=== PATIENT | female | born 1955 | race Caucasian/White ===

== ENCOUNTER 2016-05-08 16:07 | Emergency (ER) | payer OTHER, MEDICARE ==
[~2016-05-08] VITALS: Ht 167.6 cm; Wt 86.2 kg
[~2016-05-08 16:07] MED LIST: ABILIFY 15MG15 MG PO; LIORESAL 10MG T10 MG PO; NORCO 325 MG-51 TAB PO; PERCOCET 325 MG1 TA2 PO; PREDNISONE 10MG10 M1 PO; PROAIR HFA0.09 MG/Ac INH; REMERON30 M1 PO; ROBITUSSIN W/CO10 ML PO; VISTARIL25 MG PO; XANAX1 M1 PO; ZITHROMAX Z-PA250 M1 PO
--- NOTE | 2016-05-08 16:25 | ED GI/GU/ABDOMINAL COMPLAINT ---
History of Present Illness General Chief Complaint: Nausea, Vomiting, Diarrhea Stated Complaint: BIBA N/V/D SINCE 0600, BRB TO STOOL Vital Signs & Intake/Output Vital Signs & Intake/Output Vital Signs Date Time Temp Pulse Resp B/P Pulse O2 O2 Flow FiO2 Ox Delivery Rate 05/08 2116 99.6 75 18 114/62 99 Room Air 05/08 1933 100.2 82 16 116/64 96 Room Air 05/08 1851 101.2 05/08 1843 101.2 105 18 132/79 95 Room Air 05/08 1649 96 Room Air 05/08 1611 99.9 80 22 149/92 96 Room Air Allergies Coded Allergies: NSAIDS (Non-Steroidal Anti-Inflamma (Intermediate, GASTRIC ISSUES 07/18/15) Triage Note: BIBA FROM HOME FOR 12/06 MID EPIGASTRIC PAIN, INTERMITTENT AND BURNING SINCE 0600. REPORTS NAUSEA, VOMITING AND DIARRHEA WITH RED STREAKS. HX "GASTRIC EROSION" AND NOT ABLE TO TAKE NSAIDS. PT HAS EXTREMELY POOR VENOUS ACCESS AND EMS UNABLE TO ESTABLISH IV. 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 PT ARRIVES LOW GRADE 99.9 ORALLY. ? N Is pt currently ? No Onset: Abrupt Duration: hour(s): (10) Timing: multiple episodes today Quality/Severity: cramping, moderate Location: epigastric Radiation: no radiation Modifying Factors: Worsens With: eating. Associated Symptoms: nausea/vomiting HPI: This is a 60 year old female who presents to the ER for chief complaint of epigastric pain, nausea vomiting an diarrhea all which started at 6 am this morning. She reports that she has a history of gastric erosions and noted some red flecks in her emesis. (IMMANUEL LEE,ASHLEY) General Source: patient Exam Limitations: no limitations Reconcile Medications Alprazolam (Xanax) 1 MG TAB 1 TAB PO TID ANXIETY (Reported) Cyclobenzaprine HCl 5 MG TABLET 1 TAB PO TID PRN MUSCLE RELAXER (Reported) Doxepin HCl 25 MG CAPSULE 1 CAP PO QHS HEADACHE (Reported) Gabapentin 300 MG CAPSULE 1 CAP PO QHS NERVE PAIN/SLEEP (Reported) Metoclopramide HCl (Reglan) 10 MG TABLET 1 TAB PO 4 TIMES/DAY PRN nausea Multivitamin (Multi-Day Vitamins) 1 EACH TABLET 1 TAB PO DAILY SUPPLEMENT ( Reported) Oxycodone HCl/Acetaminophen (Percocet 5-325 MG Tablet) 5 MG-325 MG TABLET 1 TAB PO Q6P PRN pain Pantoprazole Sodium (Protonix) 40 MG TABLET. 1 TAB PO DAILY gerd Promethazine HCl 25 MG TABLET 1 TAB PO Q6P PRN NAUSEA/VOMITING Triage Nurses Notes Reviewed? yes (MANNY LEE,NY Her) Past History Travel History Traveled to [place] past 21 day No Medical History Any Pertinent Medical History? 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 No (ASHLEY BURLESON MD) Review of Systems Review of Systems Constitutional: Denies: chills, fever. EENTM: Reports: no symptoms. Respiratory: Denies: cough, short of breath. Cardiovascular: Denies: chest pain, palpitations. GI: Reports: abdominal pain, diarrhea, nausea, vomiting. Genitourinary: Reports: no symptoms. Musculoskeletal: Reports: no symptoms. Skin: Reports: no symptoms. Neurological/Psychological: Denies: anxiety. Hematologic/Endocrine: Reports: bleeding. Denies: bruising, polyuria, polydipsia. Immunologic/Allergic: Denies: splenectomy. All Other Systems: Reviewed and Negative (ASHLEY BURLESON MD) Physical Exam Physical Exam General Appearance: well developed/nourished, alert, awake Head: atraumatic, normal appearance Eyes: Bilateral: normal appearance, PERRL, EOMI. Ears, Nose, Throat, Mouth: hearing grossly normal, moist mucous membrane Neck: normal inspection, supple, full range of motion Respiratory: normal breath sounds, chest non-tender, no respiratory distress Cardiovascular: regular rate/rhythm Peripheral Pulses: 2+ radial (R), 2+ radial (L) Gastrointestinal: soft, abnormal bowel sounds, tenderness (EPIGASTRIC) Extremities: normal range of motion Neurologic/Psych: no motor/sensory deficits, awake, alert, oriented x 3 Skin: intact, normal color, warm/dry Core Measures ACS in differential dx? No Severe Sepsis Present: No Septic Shock Present: No (IMMANUEL LEE,ASHLEY) Progress Differential Diagnosis: bowel obstruction, gastritis, hepatitis, hernia, peptic ulcer, PUD/GERD, perforated viscous, SBO Initial ED EKG: NSR, NEW T WAVE INVERSIONS, ST FLATTENING ANTERIOR LEADS Hand-Off Endorsed To: [place] BRYANT MD Endorsed Time: 1899 Pending: CT, labs (REPEAT LACTIC/TROPONIN) (ASHLEY BURLESON MD) Plan of Care: Orders Procedure Date/time Status TROPONIN LEVEL 05/08 1940 Active LACTIC ACID 05/[address] ABD & PELVIS W IV CONTRAST 05/08 183 Active Add-on Test (ER Only) 05/08 171 Active TROPONIN LEVEL 05/08 171 Complete URINALYSIS 05/08 1638 Complete PARTIAL THROMBOPLASTIN TIME 05/08 1638 Complete PROTHROMBIN TIME 05/08 1638 Complete MAGNESIUM 05/08 1638 Complete LIPASE 05/08 1638 Complete LACTIC ACID 05/08 1638 Complete COMPREHENSIVE METABOLIC PANEL 05/08 1638 Complete CBC WITHOUT DIFFERENTIAL 05/08 1638 Active AMYLASE 05/08 1638 Complete EKG 05/08 1638 Active Current Medications Sig/Mike Start time Last Medication Dose Stop Time Status Admin Sodium Chloride 1,000 ML BOLUS ONE 05/08 183 AC (Normal Saline 0.9%) 05/08 1929 Laboratory Tests 05/08/16 1825: Urinalysis LIGHT H, Urine Color YEL, Urine Clarity HAZY H, Urine pH 8.5 H, Ur Specific [place] 1.010, Urine Protein 100 H, Urine Ketones 15 H, Urine Nitrite NEG, Urine Bilirubin NEG, Urine Urobilinogen 0.2, Ur Leukocyte Esterase NEG, Ur Microscopic SEDIMENT EXAMINED, Urine RBC 10-15 H, Urine WBC RARE, Ur Epithelial Cells FEW, Urine Mucus FEW, Urine Hemoglobin TRACE-INTACT, Urine Glucose NEG 05/08/16 1713: Anion Gap 14, Estimated GFR > 60, BUN/Creatinine Ratio 16.3, Glucose 131 H, Lactic Acid 3.2 H, Calcium 9.1, Magnesium 1.4 L, Total Bilirubin 0.6, AST 23, ALT 20, Alkaline Phosphatase 73, Troponin I < 0.01, Total Protein 6.5, Albumin 3.8, Globulin 2.7, Albumin/Globulin Ratio 1.4, Amylase < 30 L, Lipase 51 05/08/16 1645: PT 14.8 H, INR 1.41 H, APTT 28, CBC w Diff Pending, RBC 5.13, MCV 92.1, MCH 31.1 H, RDW 13.8, MPV 7.3 L, Gran % 95.0 H, Lymphocytes % 2.7 L, Monocytes % 2.2, Eosinophils % 0, Basophils % 0.1, Absolute Granulocytes 13.4 H, Absolute Lymphocytes 0.4 L, Absolute Monocytes 0.3, Absolute Eosinophils 0, Absolute Basophils 0, PUBS MCHC 33.8 6:42 PM Vomited 2 more times in the emergency department. IV Phenergan and morphine ordered. CT scan of the abdomen ordered. Elevated lactic, will require repeat lactic. (IMMANUEL LEE,ASHLEY) Diagnostic Imaging: Discussed w/RAD: CT Scan. Radiology Impression: PATIENT: HENOK MAURER PRESENT AGE: 60 PATIENT ACCOUNT NO: [id number] : 54 LOCATION: [facility] ORDERING PHYSICIAN: ASHLEY BURLESON MD SERVICE DATE: 05/08/16 EXAM TYPE: CAT - CT ABD & PELVIS W IV CONTRAST EXAMINATION: CT ABDOMEN AND PELVIS WITH CONTRAST CLINICAL INFORMATION: Abdominal pain. Persistent vomiting. COMPARISON: None. TECHNIQUE: Multidetector volumetric imaging was performed of the abdomen and pelvis after the IV administration of 95 mL of Optiray 320 intravenous contrast. Sagittal and coronal reformatted images were obtained on the technologist's workstation. DLP: 471.72 mGy-cm. FINDINGS: LUNG BASES: The visualized lung bases are unremarkable. LIVER, GALLBLADDER, AND BILIARY TREE: 5 mm hypodensity mid left lobe of liver. Indeterminate. Statistically likely small cysts. No suspicious liver lesion. No intrahepatic bile duct dilatation. The gallbladder is unremarkable with no evidence of radiopaque gallstones, gallbladder wall thickening, or obvious pericholecystic inflammatory changes. PANCREAS: Unremarkable. SPLEEN: Unremarkable. ADRENAL GLANDS: Nodule in the right adrenal gland measuring 2 cm. Density is 31 Hounsfield units which is indeterminate. Left adrenal gland normal. KIDNEYS AND URETERS: Multiple renal cysts in the kidneys. More numerous on left than right kidney. No renal or ureteral calculus. No hydronephrosis. BLADDER: Unremarkable. GASTROINTESTINAL TRACT: There are a few diverticula of left colon. No diverticulitis. No bowel wall thickening or edema. No bowel obstruction. The appendix is is not seen. No inflammation the mesentery. The small bowel loops are normal. ABDOMINAL WALL: No significant hernia is appreciated. LYMPH NODES: Normal. VASCULAR: Atherosclerotic vascular wall calcification of the aorta and iliac vessels. No aneurysm. PELVIC VISCERA: Uterus is absent. No adnexal abnormality. OSSEOUS STRUCTURES: Degenerative change of lower lumbar spine facet joints. IMPRESSION: 1. No acute abnormality CT scan abdomen and pelvis. 2. Nodule right adrenal gland measuring 2 cm indeterminate on this postcontrast study. A CT adrenal study would be helpful for further assessment. 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 Patient presented with nausea and vomiting with known ill contacts at home. She was treated with IV fluids and IV Zofran and Phenergan. Upon reevaluation she feels "much better" than she did on presentation. Plan symptomatic care for a viral illness. I feel patient is stable for outpatient management at this time to this regard. As per the patient's EKG changes, she states she was having some chest pain associated with her symptoms and I have ordered a repeat EKG to assess any changes in her EKG tracing. She has had 2 troponins that have been normal. 05/08/2016 9:47:26 PM patient's T waves have improved. The EKG changes are nonspecific and in the context of the patient's presentation I do not feel she is suffering an acute coronary syndrome at this time. (MANNY LEE,NY Her) Departure Departure Condition: Stable Clinical Impression Primary Impression: Gastroenteritis Secondary Impressions: Acute electrocardiogram changes Referrals: BELGICA FELDMAN MD (PCP/Family) Departure Forms: Customer Survey General Discharge Information (IMMANUEL LEE,ASHLEY) Departure Disposition: HOME OR SELF CARE Additional Instructions: Phenergan as needed for nausea or vomiting, Percocet as needed for pain. Follow -up with your primary care doctor tomorrow for reevaluation. Please note that you had EKG changes consisting of T-wave inversions in the anterior leads. These types of EKG changes do not necessarily represent an underlying problem with the heart. However your primary care physician should investigate this further. In addition he should have the rectal bleeding reevaluated as well for Possibility of a GI referral/colonoscopy. Please return if any concerns or sudden worsening. Prescriptions: Current Visit Scripts Promethazine HCl 1 TAB PO Q6P PRN NAUSEA/VOMITING #12 TAB Oxycodone HCl/Acetaminophen (Percocet 5-325 MG Tablet) 1 TAB PO Q6P PRN pain #10 TAB (MANNY LEE,NY Her)
[2016-05-08] MEDS ORDERED: GABAPENTIN300 M2 PO (16:30)
[2016-05-08] MEDS ORDERED: CYCLOBENZAPRINE5 M2 PO (16:31)
[2016-05-08] MEDS ORDERED: DOXEPIN HCL25 MG PO (16:31)
[2016-05-08] MEDS ORDERED: OXYCODONE-ACET1 EACH PO (16:31)
[2016-05-08] MEDS ORDERED: MULTI-DAY VITA1 EACH PO (16:32)
[2016-05-08 16:58] LABS: ABSOLUTE BASOPHIL COUNT 0 /CUMM (0.0-0.2); ABSOLUTE EOSINOPHIL COUNT 0 /CUMM (0.0-0.7); ABSOLUTE GRANULOCYTE CT 13.4 /CUMM (1.4-6.5); ABSOLUTE LYMPH COUNT 0.4 /CUMM (1.2-3.4); ABSOLUTE MONOCYTE COUNT 0.3 /CUMM (0.10-0.60); BASOPHIL % 0.1 % (0.0-2.0); EOSINOPHIL % 0 % (0-5); HEMATOCRIT 47.3 % (37-47); MEAN CORPUSCULAR HGB 31.1 PG (27.0-31.0); MEAN CORPUSCULAR HGB CONC 33.8 G/DL (33.0-37.0); MEAN CORPUSCULAR VOLUME 92.1 FL (81.0-99.0); MEAN PLATELET VOLUME 7.3 FL (7.4-10.4); PLATELET COUNT 228 /CUMM (130-400); RBC DISTRIBUTION WIDTH 13.8 % (11.5-14.5); RED BLOOD CELL CT 5.13 /CUMM (4.20-5.40); WHITE BLOOD CELL COUNT 14.1 /CUMM (4.8-10.8)
[2016-05-08 17:47] LABS: PT 14.8 SEC (9.4-12.5); PTT 28 SEC (25-37)
--- NOTE | 2016-05-08 20:28 | CT SCAN REPORT ---
EXAMINATION: CT ABDOMEN AND PELVIS WITH CONTRAST CLINICAL INFORMATION: Abdominal pain. Persistent vomiting. COMPARISON: None. TECHNIQUE: Multidetector volumetric imaging was performed of the abdomen and pelvis after the IV administration of 95 mL of Optiray 320 intravenous contrast. Sagittal and coronal reformatted images were obtained on the technologist's workstation. DLP: 471.72 mGy-cm. FINDINGS: LUNG BASES: The visualized lung bases are unremarkable. LIVER, GALLBLADDER, AND BILIARY TREE: 5 mm hypodensity mid left lobe of liver. Indeterminate. Statistically likely small cysts. No suspicious liver lesion. No intrahepatic bile duct dilatation. The gallbladder is unremarkable with no evidence of radiopaque gallstones, gallbladder wall thickening, or obvious pericholecystic inflammatory changes. PANCREAS: Unremarkable. SPLEEN: Unremarkable. ADRENAL GLANDS: Nodule in the right adrenal gland measuring 2 cm. Density is 31 Hounsfield units which is indeterminate. Left adrenal gland normal. KIDNEYS AND URETERS: Multiple renal cysts in the kidneys. More numerous on left than right kidney. No renal or ureteral calculus. No hydronephrosis. BLADDER: Unremarkable. GASTROINTESTINAL TRACT: There are a few diverticula of left colon. No diverticulitis. No bowel wall thickening or edema. No bowel obstruction. The appendix is is not seen. No inflammation the mesentery. The small bowel loops are normal. ABDOMINAL WALL: No significant hernia is appreciated. LYMPH NODES: Normal. VASCULAR: Atherosclerotic vascular wall calcification of the aorta and iliac vessels. No aneurysm. PELVIC VISCERA: Uterus is absent. No adnexal abnormality. OSSEOUS STRUCTURES: Degenerative change of lower lumbar spine facet joints. IMPRESSION: 1. No acute abnormality CT scan abdomen and pelvis. 2. Nodule right adrenal gland measuring 2 cm indeterminate on this postcontrast study. A CT adrenal study would be helpful for further assessment.
[2016-05-08 21:17] VITALS: BP 114/62
[2016-05-08] MEDS ORDERED: PERCOCET 5-3251 EACH PO (21:53)
[2016-05-08] MEDS ORDERED: PROMETHAZINE HC25 M3 PO (21:53)
== END 2016-05-08 22:05 ==
LOC: ERH 16:07
PROVIDERS: Emergency Medicine
DX: K52.9 Noninfective gastroenteritis and colitis, unspecified (principal); R94.31 Abnormal electrocardiogram [ECG] [EKG]; R10.13 Epigastric pain; K92.0 Hematemesis
CPT/HCPCS: 74177; 81001; 93005; 93010; 96361; 96374; 96375; J0131; J2405; J2550

== ENCOUNTER 2016-05-10 12:27 | Emergency (ER) | payer OTHER, MEDICARE ==
[~2016-05-10 12:27] MED LIST changes: +CYCLOBENZAPRINE5 M2 PO; +DOXEPIN HCL25 MG PO; +GABAPENTIN300 M2 PO; +MULTI-DAY VITA1 EACH PO; +OXYCODONE-ACET1 EACH PO; +PERCOCET 5-3251 EACH PO; +PROMETHAZINE HC25 M3 PO
--- NOTE | 2016-05-10 13:43 | ED GI/GU/ABDOMINAL COMPLAINT ---
History of Present Illness General Chief Complaint: Nausea, Vomiting, Diarrhea Stated Complaint: NV, R SIDED CHEST PAIN Source: patient, old records Exam Limitations: no limitations Vital Signs & Intake/Output Vital Signs & Intake/Output Vital Signs Date Time Temp Pulse Resp B/P Pulse O2 O2 Flow FiO2 Ox Delivery Rate 05/10 1622 132/82 05/10 1234 96.8 65 20 150/98 99 Room Air ED Intake and Output 05/11 0000 05/10 1200 Intake Total 1000 Output Total Balance 1000 Intake, IV 1000 Allergies Coded Allergies: NSAIDS (Non-Steroidal Anti-Inflamma (Intermediate, GASTRIC ISSUES 07/18/15) Reconcile Medications Alprazolam (Xanax) 1 MG TAB 1 TAB PO TID ANXIETY (Reported) Cyclobenzaprine HCl 5 MG TABLET 1 TAB PO TID PRN MUSCLE RELAXER (Reported) Doxepin HCl 25 MG CAPSULE 1 CAP PO QHS HEADACHE (Reported) Gabapentin 300 MG CAPSULE 1 CAP PO QHS NERVE PAIN/SLEEP (Reported) Metoclopramide HCl (Reglan) 10 MG TABLET 1 TAB PO 4 TIMES/DAY PRN nausea Multivitamin (Multi-Day Vitamins) 1 EACH TABLET 1 TAB PO DAILY SUPPLEMENT ( Reported) Oxycodone HCl/Acetaminophen (Percocet 5-325 MG Tablet) 5 MG-325 MG TABLET 1 TAB PO Q6P PRN pain Pantoprazole Sodium (Protonix) 40 MG TABLET.DR 1 TAB PO DAILY gerd Promethazine HCl 25 MG TABLET 1 TAB PO Q6P PRN NAUSEA/VOMITING Triage Note: +N/V X2 DAYS, CHEST PAIN ON RIGHT SIDE. "MY CHEST HURTS FROM VOMITING SEEN HERE SATURDAY FOR SAME. ZOFRAN 4 MG IV BY EMS. Triage Nurses Notes Reviewed? yes ? n Is pt currently ? No HPI: Patient is a 60-year-old female presents complaining of nausea, vomiting, upper abdominal/right-sided chest pain. Symptoms 4 days. Patient was seen in the emergency department on Saturday, had evaluation with CT scan and was discharged. Patient reports that today's symptoms return. Vomiting numerous times, no blood present. Today patient began with diarrhea. Pain is a sharp/burning pain worsens with vomiting. Pain is currently severe. Patient denies fevers, hematemesis, hematochezia, dyspnea. Past History Travel History Traveled to [place] past 21 day No Medical History Any Pertinent Medical History? 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 No Review of Systems Review of Systems Constitutional: Denies: chills, fever. EENTM: Reports: no symptoms. Respiratory: Denies: cough, short of breath. Cardiovascular: Reports: chest pain (right sided with vomiting). GI: Reports: see HPI, abdominal pain, diarrhea, nausea, vomiting. Genitourinary: Reports: no symptoms. Musculoskeletal: Reports: back pain (chronic). Skin: Reports: no symptoms. Neurological/Psychological: Reports: no symptoms. Hematologic/Endocrine: Reports: no symptoms. Immunologic/Allergic: Reports: no symptoms. Physical Exam Physical Exam General Appearance: alert, awake Head: atraumatic, normal appearance Eyes: Bilateral: normal appearance, PERRL, EOMI. Ears, Nose, Throat, Mouth: hearing grossly normal, moist mucous membrane Neck: normal inspection, supple, full range of motion Respiratory: normal breath sounds, chest non-tender, no respiratory distress, lungs clear Cardiovascular: regular rate/rhythm Gastrointestinal: normal bowel sounds, soft, mild epigastric tenderness. No palpable pulsatile mass Back: normal inspection, normal range of motion Extremities: normal range of motion Neurologic/Psych: no motor/sensory deficits, awake, alert, oriented x 3, normal gait, normal mood/affect Skin: intact, normal color, warm/dry Core Measures ACS in differential dx? No Severe Sepsis Present: No Septic Shock Present: No Progress Differential Diagnosis: AAA, AMI, appendicitis, cholecystitis, diverticulitis, gastritis, hepatitis, hernia, ischemic bowel, inflamm bowel dis, pancreatitis, PUD/GERD, gastroenteritis Plan of Care: Orders Procedure Date/time Status TROPONIN LEVEL 05/10 1254 Complete COMPREHENSIVE METABOLIC PANEL 05/10 1254 Complete CBC WITHOUT DIFFERENTIAL 05/10 1254 Complete EKG 05/10 1242 Active Laboratory Tests 05/10/16 1513: RBC 4.51, MCV 93.3, MCH 30.9, RDW 13.5, MPV 6.5 L, Gran % 90.9 H, Lymphocytes % 5.9 L, Monocytes % 3.2, Eosinophils % 0, Basophils % 0 L, Absolute Granulocytes 10.6 H, Absolute Lymphocytes 0.7 L, Absolute Monocytes 0.4, Absolute Eosinophils 0, Absolute Basophils 0, PUBS MCHC 33.1 05/10/16 1259: Anion Gap 17 H, Estimated GFR > 60, BUN/Creatinine Ratio 20.0, Glucose 121 H, Calcium 9.0, Total Bilirubin 0.7, AST 34, ALT 30, Alkaline Phosphatase 75, Troponin I < 0.01, Total Protein 6.7, Albumin 4.0, Globulin 2.7, Albumin/ Globulin Ratio 1.5 05/10/16 1255: Troponin I Cancelled 05/10/16 1254: Urine Color Cancelled, Urine Clarity Cancelled, Urine pH Cancelled, Ur Specific [place] Cancelled, Urine Protein Cancelled, Urine Ketones Cancelled, Urine Nitrite Cancelled, Urine Bilirubin Cancelled, Urine Urobilinogen Cancelled, Ur Leukocyte Esterase Cancelled, Ur Microscopic Cancelled, Urine Hemoglobin Cancelled, Urine Glucose Cancelled 1435: Patient reports mild improvement in her symptoms. Continues with moderate pain and nausea. Reglan and morphine ordered. Symptoms improving after Reglan and morphine. Patient tolerating oral fluids appropriately. No further vomiting. Reviewed CT scan from 2 days ago. Repeat imaging deferred secondary to exam, labs, clinical condition. Appears stable for discharge. (KEYON RATLIFF,CARMELO) Initial ED EKG: normal axis, normal QRS complex, normal sinus rhythm, no ST T wave changes Departure Departure Time of Disposition: 1650 Disposition: HOME OR SELF CARE Condition: Stable Clinical Impression Primary Impression: Vomiting Secondary Impressions: Epigastric pain Referrals: BELGICA FELDMAN MD (PCP/Family) Additional Instructions: Follow up with your primary care doctor tomorrow or early next week for further evaluation. You may also contact Dr. Atkinson(psychology instructor) for further evaluation. Clear liquid diet for the next 24 hours then slowly advance her diet as tolerated. Return to the emergency department if fevers, unable to say hydrated, or worsening of symptoms. Departure Forms: Customer Survey General Discharge Information Prescriptions: Current Visit Scripts Pantoprazole Sodium (Protonix) 1 TAB PO DAILY #14 TAB Metoclopramide HCl (Reglan) 1 TAB PO 4 TIMES/DAY PRN nausea #12 TAB
[2016-05-10 15:18] LABS: ABSOLUTE BASOPHIL COUNT 0 /CUMM (0.0-0.2); ABSOLUTE EOSINOPHIL COUNT 0 /CUMM (0.0-0.7); ABSOLUTE GRANULOCYTE CT 10.6 /CUMM (1.4-6.5); ABSOLUTE LYMPH COUNT 0.7 /CUMM (1.2-3.4); ABSOLUTE MONOCYTE COUNT 0.4 /CUMM (0.10-0.60); BASOPHIL % 0 % (0.0-2.0); EOSINOPHIL % 0 % (0-5); MEAN CORPUSCULAR HGB 30.9 PG (27.0-31.0); MEAN CORPUSCULAR HGB CONC 33.1 G/DL (33.0-37.0); MEAN CORPUSCULAR VOLUME 93.3 FL (81.0-99.0); MEAN PLATELET VOLUME 6.5 FL (7.4-10.4); PLATELET COUNT 174 /CUMM (130-400); RBC DISTRIBUTION WIDTH 13.5 % (11.5-14.5); RED BLOOD CELL CT 4.51 /CUMM (4.20-5.40); WHITE BLOOD CELL COUNT 11.7 /CUMM (4.8-10.8)
[2016-05-10 15:35] LABS: GRANULOCYTE % 90.9 % (42.2-75.2)
[2016-05-10 15:43] LABS: HEMATOCRIT 42.1 % (37-47)
[2016-05-10 16:22] VITALS: BP 132/82
[2016-05-10] MEDS ORDERED: PROTONIX40 M3 PO (16:53)
[2016-05-10] MEDS ORDERED: REGLAN10 M1 PO (16:53)
== END 2016-05-10 17:05 ==
LOC: ERH 12:27
PROVIDERS: Emergency Medicine
DX: R11.2 Nausea with vomiting, unspecified (principal); R07.9 Chest pain, unspecified
CPT/HCPCS: 93005; 93010; 96374; 96375; 96376; J2550; J2765

== ENCOUNTER 2016-10-08 13:06 | Inpatient (IN) | payer OTHER, MEDICARE ==
[~2016-10-08] VITALS: Ht 167.6 cm; Wt 87.1 kg
[~2016-10-08 13:06] MED LIST changes: +PROTONIX40 M3 PO; +REGLAN10 M1 PO
--- NOTE | 2016-10-08 13:14 | NUR ---
PT SENT IN BY DR. NIETO FOR VOMITTING X 1 MONTH. PT STATES SHE WAS HERE SEVERAL TIMES LAST YEAR AND WAS SCOPED BUT NOTHING WAS FOUND TO BE WRONG. PT STATES "SOMETHING ISN'T RIGHT I NEED HELP. I CAN'T KEEP ANYTHING DOWN OR IN"
--- NOTE | 2016-10-08 13:17 | ED GI/GU/ABDOMINAL COMPLAINT ---
History of Present Illness General Chief Complaint: Nausea, Vomiting, Diarrhea Stated Complaint: VOMITING;DIAHHREA Source: patient Exam Limitations: no limitations Vital Signs & Intake/Output Vital Signs & Intake/Output Vital Signs Date Time Temp Pulse Resp B/P B/P Pulse O2 O2 Flow FiO2 Mean Ox Delivery Rate 10/08 1749 98.0 80 18 137/83 98 Room Air 10/08 1738 Room Air 10/08 1314 98.0 73 20 163/95 99 Room Air Allergies Coded Allergies: NSAIDS (Non-Steroidal Anti-Inflamma (Intermediate, GASTRIC ISSUES 07/18/15) Reconcile Medications Alprazolam (Xanax) 1 MG TABLET 1 TAB PO TID ANXIETY (Reported) Aripiprazole 5 MG TABLET 1 TAB PO DAILY MENTAL HEALTH (Reported) Cyclobenzaprine HCl 5 MG TABLET 1 TAB PO TID PRN MUSCLE RELAXER (Reported) Doxepin HCl 25 MG CAPSULE 1 CAP PO QHS HEADACHE (Reported) Gabapentin 300 MG CAPSULE 1 CAP PO QHS NERVE PAIN/SLEEP (Reported) Metoclopramide HCl (Reglan) 10 MG TABLET 1 TAB PO 4 TIMES/DAY PRN nausea Multivitamin (Multi-Day Vitamins) 1 EACH TABLET 1 TAB PO DAILY SUPPLEMENT ( Reported) Oxycodone HCl/Acetaminophen (Oxycodone-Acetaminophen 5-325) 5 MG-325 MG TABLET 1 TAB PO 4 TIMES/DAY PAIN (Reported) Pantoprazole Sodium (Protonix) 40 MG TABLET.DR 1 TAB PO DAILY gerd Promethazine HCl 25 MG TABLET 1 TAB PO Q6P PRN NAUSEA/VOMITING Triage Note: PT SENT IN BY DR. NIETO FOR VOMITTING X 1 MONTH. PT STATES SHE WAS HERE SEVERAL TIMES LAST YEAR AND WAS SCOPED BUT NOTHING WAS FOUND TO BE WRONG. PT STATES "SOMETHING ISN'T RIGHT I NEED HELP. I CAN'T KEEP ANYTHING DOWN OR IN" Triage Nurses Notes Reviewed? yes ? N Is pt currently ? No HPI: 61 yo F PMH Diabetes, Anxiety, Bipolar presenting with N/V, abdominal pain. Acute on chronic nausea with 10+ episodes of nonbloody green-yellow emesis since this morning, given zofran at PMDs office, unable to stop retching, sent to ED for evaluation and admission. Patient has had Nausea with 2-3 epsiodes of emesis /day for the past 1-2 months, associated daily headaches (worse in the morning, improve throughout the day) and intermittent burning epigastric pain. Denies diarrhea, last BM this morning, still passing gas, denies hematochezia, melena, urinary or vaginal Sx. Patient has had negative CT A/P in April, "normal" (per patient) endoscopy 1 month ago, negative head CT 1 month ago, no cause for N/V identified. Denies fevers, chills, chest pain, SOB, neck pain or focal neurologic sx. (MADISON GUO MD) Past History Travel History Traveled to [place] past 21 day No Medical History Any Pertinent Medical History? see below for history Neurological: NONE EENT: NONE Cardiovascular: NONE Respiratory: NONE Gastrointestinal: NONE Hepatic: NONE Renal: NONE Musculoskeletal: chronic back pain Psychiatric: anxiety, bipolar disease Endocrine: NONE Blood Disorders: NONE Cancer(s): NONE VMWARE ARCHITECT/Reproductive: NONE Surgical History Surgical History: non-contributory Psychosocial History What is your primary language Korean Tobacco Use: Current Daily Use Daily Tobacco Use Amount/Type: => 5 Cigarettes daily Family History Hx Contributory? Yes (MADISON GUO MD) Review of Systems Review of Systems Constitutional: Reports: malaise, weakness. EENTM: Reports: no symptoms. Respiratory: Reports: no symptoms. Cardiovascular: Reports: no symptoms. GI: Reports: abdominal pain, nausea, vomiting. Genitourinary: Reports: no symptoms. Musculoskeletal: Reports: back pain. Denies: neck pain. Skin: Reports: no symptoms. Neurological/Psychological: Reports: no symptoms. Hematologic/Endocrine: Reports: no symptoms. Immunologic/Allergic: Reports: no symptoms. All Other Systems: Reviewed and Negative (MADISON GUO MD) Physical Exam Physical Exam General Appearance: well developed/nourished, alert, awake, anxious, Retching Head: atraumatic, normal appearance Eyes: Bilateral: normal appearance. Neck: normal inspection, full range of motion Respiratory: normal breath sounds, no respiratory distress, lungs clear Cardiovascular: regular rate/rhythm, normal peripheral pulses Gastrointestinal: normal bowel sounds, soft Comments: Abdomen: Soft, Moderate epigastric/LUQ/RUQ TTP without rebound or guarding, non- distended Neurologic: Cranial nerves II-XII intact, visual lisa intact, strength 5/5 in bilateral UE/LE, no sensory deficits, no pronator drift, [id number]-[id number] and xpaz-bj-[id number] testing normal Core Measures ACS in differential dx? No Severe Sepsis Present: No Septic Shock Present: No (SARI LEE,MADISON) Progress Differential Diagnosis: AAA, AMI, appendicitis, biliary colic, bowel obstruction , colon cancer, cholecystitis, diverticulitis, ectopic , endometritis, esophageal varices, gastritis, hepatitis, hernia, hemorrhoids, ischemic bowel, inflamm bowel dis, intrauterine , kidney stone, Mirella-Jorgito tear, ovarian cyst, ovarian torsion, pancreatitis, PID/cervicitis, peptic ulcer, PUD/ GERD, perforated viscous, SBO, threatened AB, UTI/pyelo Plan of Care: Orders Procedure Date/time Status Clear Liquid Diet 10/09 B Active CBC WITHOUT DIFFERENTIAL 10/09 06 Active BASIC ELECTROLYTES PLUS BUN&CR 10/09 06 Active Clear Liquid Diet 10/08 D Complete SPECIMEN TO BE OBTAINED 10/08 1757 Active Pathway - chart 10/[address] in observation 10/08 1720 Active ED Holding Orders 10/08 1720 Active Vital Signs 10/08 1720 Active Code Status 10/08 1720 Active Pathway - chart 10/08 1719 Active House Staff 10/08 1719 Active PHYSICIAN CONSULT 10/08 1719 Active Code Status 10/08 1719 Complete Patient Data 10/08 1438 Active Intake & Output 10/08 1412 Active URINALYSIS 10/08 1322 Complete EKG 10/08 1322 Active LIPASE 10/08 1317 Complete LACTIC ACID 10/08 1317 Complete COMPREHENSIVE METABOLIC PANEL 10/08 1317 Complete CBC WITHOUT DIFFERENTIAL 10/08 1317 Complete VTE Mechanical Prophylaxis 10/08 UNK Active Precautions 10/08 UNK Active PSYCHIATRIC CONSULT 10/08 UNK Active Current Medications Sig/Mike Start time Last Medication Dose Stop Time Status Admin Alprazolam 1 MG 1400,1800,2200 10/08 2200 AC (Xanax) 10/15 215 Gabapentin 300 MG AT BEDTIME 10/08 2200 AC (Neurontin) Nicotine 14 MG DAILY 10/08 1734 AC 10/08 (Nicotine Cq) 1825 Acetaminophen 650 MG Q6P PRN 10/08 1730 AC (Tylenol) Morphine Sulfate 2 MG Q4P PRN 10/08 1730 AC (Morphine) Oxycodone/ 1 TAB Q6P PRN 10/08 1730 AC Acetaminophen (Percocet) Prochlorperazine 10 MG Q6-PRN PRN 10/08 1730 AC (Compazine) Pantoprazole Sodium 40 MG DAILY 10/08 172 AC 10/08 (Protonix) 1825 Multivitamins 1 TAB DAILY 10/08 172 AC Therapeutic (Theragran-M Vitamins Tabs) Enoxaparin Sodium 40 MG DAILY 10/08 171 AC 10/08 (Lovenox) 1825 Dextrose/Water 1,000 ML .Q6H40M 10/08 171 AC 10/08 (D5W 1000) 1738 Laboratory Tests 10/08/16 1349: Urinalysis LIGHT H, Urine Color VERÓNICA, Urine Clarity HAZY H, Urine pH 6.0, Ur Specific [place] 1.025, Urine Protein 100 H, Urine Ketones NEG, Urine Nitrite NEG, Urine Bilirubin NEG@ICTO, Urine Urobilinogen 0.2, Ur Leukocyte Esterase NEG , Ur Microscopic SEDIMENT EXAMINED, Urine RBC 15-25 H, Urine WBC 1-3 H, Ur Epithelial Cells MOD H, Urine Crystals 3+ CA OX H, Urine Bacteria MOD H, Hyaline Casts RARE H, Urine Mucus FEW, Urine Hemoglobin MOD H, Urine Glucose NEG 10/08/16 1322: Anion Gap 9, Estimated GFR > 60, BUN/Creatinine Ratio 28.6 H, Glucose 129 H, Lactic Acid 1.4, Calcium 9.7, Total Bilirubin 0.6, AST 23, ALT 39, Alkaline Phosphatase 84, Total Protein 7.3, Albumin 4.3, Globulin 3.0, Albumin/Globulin Ratio 1.4, Lipase 281, CBC w Diff NO MAN DIFF REQ, RBC 4.97, MCV 93.4, MCH 30.5, RDW 14.1, MPV 6.6 L, Gran % 88.8 H, Lymphocytes % 8.4 L, Monocytes % 2.4, Eosinophils % 0, Basophils % 0.4, Absolute Granulocytes 10.9 H, Absolute Lymphocytes 1.0 L, Absolute Monocytes 0.3, Absolute Eosinophils 0, Absolute Basophils 0.1, PUBS MCHC 32.7 L Physician MDM: 61 yo F PMH Diabetes, Anxiety, Bipolar presenting with N/V, abdominal pain. VSS, abdominal exam as above. DDx: GERD, Gastritis, Gastroparesis, PUD, Biliary pathology, DRY LUMBER GRADER mass or hydrocephalus. Compazine given with resolution of retching, persistent nausea, still unable to tolerate PO. Morphine with improvement in abdominal pain. Plan for labs, RUQ U/S, MRI brain. Admit for MRI, further evaluation of N/V, and symptomatic control given patient unable to tolerate PO. (SARI LEE,MADISON) Initial ED EKG: normal sinus rhythm (MADISON GUO MD) Departure Departure Disposition: STILL A PATIENT Condition: Stable Clinical Impression Primary Impression: Emesis, persistent Secondary Impressions: Abdominal pain Referrals: BERTHA RUIZ MD (PCP/Family) Departure Forms: Customer Survey General Discharge Information Admission Note Spoke With: TAIWO LEE,WM Steele Documentation of Exam: Documentation of any treatments & extenuating circumstances including Concerns Regarding Discharge (functional status, medication knowledge or non-compliance, living conditions, etc.) that warrant an admission rather than observation: [ Patient presents with intractable nausea and vomiting with associated abdominal pain, she has chronic headaches that are worse in the morning concerning for intracranial mass and requires an MRI for further evaluation for increased intracranial pressure, she has intractable nausea with vomiting and inability to tolerate by mouth despite multiple antiemetics given in the ED, she requires further evaluation and inpatient workup with neurology consult and Gastroenterology consult, she requires admission for ongoing IV fluid resuscitation and IV antiemetics, IV pain control, if discharged patient has a high likelihood of being unable to tolerate her food or medications at home with progressive electrolyte derrangements, dehydration,significant morbidity and eventually .] (SARI LEE,MADISON) PA/TAR AND AMMONIA PUMP OPERATOR Co-Sign Statement Statement: ED Attending supervision documentation- [] I saw and evaluated the patient. I have also reviewed all the pertinent lab results and diagnostic results. I agree with the findings and the plan of care as documented in the PA's/TAR AND AMMONIA PUMP OPERATOR's documentation. [X] I have reviewed the ED Record and agree with the PA's/TAR AND AMMONIA PUMP OPERATOR's documentation. [] Additions or exceptions (if any) to the PAs/TAR AND AMMONIA PUMP OPERATOR's note and plan are summarized below: [] (IMMANUEL LEE,ASHLEY)
--- NOTE | 2016-10-08 13:20 | NUR ---
PT TO ROOM 18. DR GUO IN TO SEE PT
[2016-10-08 13:34] LABS: ABSOLUTE BASOPHIL COUNT 0.1 /CUMM (0.0-0.2); ABSOLUTE EOSINOPHIL COUNT 0 /CUMM (0.0-0.7); ABSOLUTE GRANULOCYTE CT 10.9 /CUMM (1.4-6.5); ABSOLUTE MONOCYTE COUNT 0.3 /CUMM (0.10-0.60); BASOPHIL % 0.4 % (0.0-2.0); EOSINOPHIL % 0 % (0-5); HEMATOCRIT 46.4 % (37-47); MEAN CORPUSCULAR HGB 30.5 PG (27.0-31.0); MEAN CORPUSCULAR HGB CONC 32.7 G/DL (33.0-37.0); MEAN CORPUSCULAR VOLUME 93.4 FL (81.0-99.0); MEAN PLATELET VOLUME 6.6 FL (7.4-10.4); PLATELET COUNT 239 /CUMM (130-400); RBC DISTRIBUTION WIDTH 14.1 % (11.5-14.5); RED BLOOD CELL CT 4.97 /CUMM (4.20-5.40); WHITE BLOOD CELL COUNT 12.2 /CUMM (4.8-10.8)
[2016-10-08 14:05] LABS: GRANULOCYTE % 88.8 % (42.2-75.2)
--- NOTE | 2016-10-08 14:10 | NUR ---
PT VOMITING BILE COLOR LIQUID. IV PLACED. IVF BOLUS STARTED. MEDICATED WITH MORPHINE AND COMPAZINE. PT BECAME ANXIOUS RIGHT AFTER MORPHINE GIVEN. STATED SHE COULD NOT BREATH. SATS 100% ON ROOM AIR. LUNGS CLEAR. CALMED DOWN WITH REASSURANCE. DR GUO IN TO SEE PT AND DISCUSS PLAN FOR MRI
--- NOTE | 2016-10-08 14:45 | NUR ---
NAUSEA AND VOMITING RELIEVED AFTER MEDS GIVEN. MRI NOTIFIED THAT PT WILL BE ABLE TO LAY FLAT FOR MRI
[2016-10-08] MEDS ORDERED: ARIPIPRAZOLE5 M1 PO (14:47)
[2016-10-08] MEDS ORDERED: OXYCODONE-ACET1 EACH PO (14:47)
--- NOTE | 2016-10-08 15:16 | NUR ---
HOUSE STAFF IN TO SEE PT
--- NOTE | 2016-10-08 15:32 | NUR ---
PT TO MRI VIA STRETCHER
--- NOTE | 2016-10-08 15:33 | NUR ---
PT TAKEN TO MRI
--- NOTE | 2016-10-08 15:47 | PN- Att Addend ---
Attending Addendum Attending Brief Note 61-year-old female with past medical history significant for depression, bipolar , depression, history of chronic nausea and vomiting who is presenting with acute worsening off her nausea and vomiting. Patient is that she had this off and on but not from last 1 month she almost has every day in the morning. She throws up mostly mucus. She also had some episodes of diarrhea associated with vomiting. She denies eating out, any travel, eating anything uncooked or [place]. She denies any fevers or chills. She does complain of epigastric pain. She denies any significant weight loss. She is just getting sick of this and wants to be checked out. She has been seen in the emergency room for this with the most recent one on October 06 which was 2 days ago. At that point her CT abdomen and pelvis was negative. She also claims that she had followed up with Dr. Atkinson as an outpatient and her endoscopy in 2016 was negative. Pathology came back for chronic inflammation and negative for h pylori and patient was advised to continue her proton pump inhibitor for reflux. Off note she claims that she was told by her pain management to take Imitrex every day for headaches and she also had started Abilify about a month ago and then I looked up, both of these medications side effects include nausea and vomiting. Vital Signs Date Time Temp Pulse Resp B/P B/P Pulse O2 O2 Flow FiO2 Mean Ox Delivery Rate 10/08 1314 98.0 73 20 163/95 99 Room Air on exam; aox3, nad. heent; mucous membranes dry. cv; s1,s2, rrr resp; clear abd; soft, mildly tender epigstrium, bs+ ext; no edema Laboratory Tests 10/08 10/08 1349 1322 Chemistry Sodium (137 - 145 mmol/L) 142 Potassium (3.5 - 5.1 mmol/L) 4.2 Chloride (98 - 107 mmol/L) 101 Carbon Dioxide (22 - 30 mmol/L) 32 H Anion Gap (5 - 16) 9 BUN (7 - 17 mg/dL) 20 H Creatinine (0.5 - 1.0 mg/dL) 0.7 Estimated GFR (>60 ml/min) > 60 BUN/Creatinine Ratio (7 - 25 %) 28.6 H Glucose (65 - 99 mg/dL) 129 H Lactic Acid (0.7 - 2.1 mmol/L) 1.4 Calcium (8.4 - 10.2 mg/dL) 9.7 Total Bilirubin (0.2 - 1.3 mg/dL) 0.6 AST (14 - 36 U/L) 23 ALT (9 - 52 U/L) 39 Alkaline Phosphatase (<127 U/L) 84 Total Protein (6.3 - 8.2 g/dL) 7.3 Albumin (3.5 - 5.0 g/dL) 4.3 Globulin (1.9 - 4.2 gm/dL) 3.0 Albumin/Globulin Ratio (1.1 - 2.2 %) 1.4 Lipase (23 - 300 U/L) 281 Hematology CBC w Diff NO MAN DIFF REQ WBC (4.8 - 10.8 /CUMM) 12.2 H RBC (4.20 - 5.40 /CUMM) 4.97 Hgb (12.0 - 16.0 G/DL) 15.2 Hct (37 - 47 %) 46.4 MCV (81.0 - 99.0 FL) 93.4 MCH (27.0 - 31.0 PG) 30.5 RDW (11.5 - 14.5 %) 14.1 Plt Count (130 - 400 /CUMM) 239 MPV (7.4 - 10.4 FL) 6.6 L Gran % (42.2 - 75.2 %) 88.8 H Lymphocytes % (20.5 - 51.1 %) 8.4 L Monocytes % (1.7 - 9.3 %) 2.4 Eosinophils % (0 - 5 %) 0 Basophils % (0.0 - 2.0 %) 0.4 Absolute Granulocytes (1.4 - 6.5 /CUMM) 10.9 H Absolute Lymphocytes (1.2 - 3.4 /CUMM) 1.0 L Absolute Monocytes (0.10 - 0.60 /CUMM) 0.3 Absolute Eosinophils (0.0 - 0.7 /CUMM) 0 Absolute Basophils (0.0 - 0.2 /CUMM) 0.1 PUBS MCHC (33.0 - 37.0 G/DL) 32.7 L Urines Urinalysis LIGHT H Urine Color (YEL,AMB,STR) VERÓNICA Urine Clarity (CLEAR) HAZY H Urine pH (5.0 - 8.0) 6.0 Ur Specific [place] (1.001 - 1.035) 1.025 Urine Protein (NEG,<30 MG/DL) 100 H Urine Ketones (NEG) NEG Urine Nitrite (NEG) NEG Urine Bilirubin (NEG) NEG@ICTO Urine Urobilinogen (0.1 - 1.0 EU/dl) 0.2 Ur Leukocyte Esterase (NEG) NEG Ur Microscopic SEDIMENT EXAMINED Urine RBC (0 - 5 /HPF) 15-25 H Urine WBC (0 - 2 /HPF) 1-3 H Ur Epithelial Cells (NONE,FEW) MOD H Urine Crystals 3+ CA OX H Urine Bacteria (NEG/NONE) MOD H Hyaline Casts (0/LPF) RARE H Urine Mucus (FEW,NONE) FEW Urine Hemoglobin (NEG) MOD H Urine Glucose (N MG/DL) NEG EKG shows normal sinus rhythm. CT abdomen and pelvis from October 06 shows. 1. No acute abnormality CT scan abdomen and pelvis. 2. Nodule right adrenal gland measuring 2 cm indeterminate on this postcontrast study. A CT adrenal study would be helpful for further assessment. A/P; 61-year-old female with past medical history significant for depression, bipolar, depression, history of chronic nausea and vomiting is admitted with acute exacerbation of her nausea and vomiting. Patient is admitted to general medicine floor. She is getting MRI brain for these headaches as well as N/V. She will be hydrated with IV fluids and will require symptomatic treatment for nausea vomiting. Please stop her Imitrex as well as Abilify. Please consult psychiatry for alternative medication for her psych issues other than Abilify. Please consult GI if sx persist. Please confirm and continue the rest of her medications. If patient develops diarrhea than her stool studies should be checked. Start the patient on clear liquid diet and advance as tolerated. DVT prophylaxis: Lovenox. full code.
--- NOTE | 2016-10-08 16:31 | MRI REPORT ---
EXAMINATION: MR BRAIN WITHOUT AND WITH CONTRAST CLINICAL INFORMATION: Headaches, nausea and vomiting COMPARISON: Head CT from 08/15/2016 TECHNIQUE: MRI of the brain was obtained using routine sequences before and after the intravenous administration of 18 mL of OptiMARK. FINDINGS: There is motion on the acquired images. The patient was quite claustrophobic. The gradient recalled echo sequence was not acquired. There is no acute brain ischemia. There is normal appearance of the ventricles, sulci, and extra-axial CSF spaces with minor periventricular T2 prolongation compatible with chronic microangiopathy. No extra-axial collections, mass effect, or shift of the normally midline structures. The major arterial and venous flow voids are preserved. Accounting for a fair amount of motion degradation no convincing abnormal enhancement after gadolinium administration. The craniocervical junction and supersellar region appear unremarkable. Marrow signal appears grossly preserved. The imaged paranasal sinuses are clear. The mastoid air cells appear clear although hypopneumatized. The orbits appear unremarkable. IMPRESSION: Motion degraded study without evidence of acute brain ischemia. The caliber of the ventricular system appears normal. No convincing change from 08/15/2016 across modalities.
--- NOTE | 2016-10-08 17:13 | History & Physical ---
CONY JOSE MD 10/08/16 7553: General Information and HPI MD Statement: I have seen and personally examined KAREN MARQUEZ and documented this H&P. The patient is a 61 year old F who presented with a patient stated chief complaint of nausea, vomiting and headache. Source of Information: patient, old records Exam Limitations: poor historian History of Present Illness: Ms. Marquez is a 61 year old female with PMH anxiety, bipolar disorder and chronic low back pain who presents with chief complaint of persistent nausea and vomiting. According to the patient, she has had nausea, vomiting, epigastric pain and capacity manager headaches for about 1-2 months. In July, she had an endoscopy with Dr. Demetrio MD that showed no acute pathology. She continued to experience this nausea and vomiting, most notably in the morning after waking. Upon vomiting, she experiences 8/10 epigastric pain that does not radiate. Her vomitus does not contain blood and either containts food particles or bile. The nausea is relieved with compazine but not with zofran. The headaches are rated a 7/10 in intensity, shifting in nature, sometimes global, and wake her up from sleep. No outpatient medications help the headaches but morphine given at the hospital improves both the headache and abdominal pain. Associated symptoms include non-bloody, mucous-like diarrhea (2-3 episodes a day for 1-2 months) occasional dizziness and balance issues. She reports friends sometimes comment that she "is walking like she is drunk", though she has not had drinks; she has never fallen, however. She denies fever, chills, vision changes, peripheral vision loss, shortness of breath, chest pain, dysuria, foul smelling urine, weakness or numbness. Social history is significant for tobacco use with 1 PPD x 40 years (40 pack year). She denies alcohol or illicit drug use. She lives at home with her and her 6 cats. She is currently unemployed as she is on disability for mental health issues. Family history is unknown as she is adopted, though she believes there is a history of heart problems and emphysema. Patient follows up with Dr. Moise who prescribes her medications for anxiety (as well as recently prescribed Abilify 1 month ago) and Dr. Atkinson as her human performance consultant. Her PCP is Dr. Moustapha MD. Allergies/Medications Allergies: Coded Allergies: NSAIDS (Non-Steroidal Anti-Inflamma (Intermediate, GASTRIC ISSUES 07/18/15) Home Med list Alprazolam (Xanax) 1 MG TABLET 1 TAB PO TID ANXIETY (Reported) Aripiprazole 5 MG TABLET 1 TAB PO DAILY MENTAL HEALTH (Reported) Cyclobenzaprine HCl 5 MG TABLET 1 TAB PO TID PRN MUSCLE RELAXER (Reported) Doxepin HCl 25 MG CAPSULE 1 CAP PO QHS HEADACHE (Reported) Gabapentin 300 MG CAPSULE 1 CAP PO QHS NERVE PAIN/SLEEP (Reported) Metoclopramide HCl (Reglan) 10 MG TABLET 1 TAB PO 4 TIMES/DAY PRN nausea Multivitamin (Multi-Day Vitamins) 1 EACH TABLET 1 TAB PO DAILY SUPPLEMENT ( Reported) Oxycodone HCl/Acetaminophen (Oxycodone-Acetaminophen 5-325) 5 MG-325 MG TABLET 1 TAB PO 4 TIMES/DAY PAIN (Reported) Pantoprazole Sodium (Protonix) 40 MG TABLET.DR 1 TAB PO DAILY gerd Promethazine HCl 25 MG TABLET 1 TAB PO Q6P PRN NAUSEA/VOMITING Compliance With Home Meds: UNKNOWN Past History Travel History Traveled to [place] past 21 day No Medical History Neurological: NONE EENT: NONE Cardiovascular: NONE Respiratory: NONE Gastrointestinal: NONE Hepatic: NONE Renal: NONE Musculoskeletal: chronic back pain Psychiatric: anxiety, bipolar disease Endocrine: NONE Blood Disorders: NONE Cancer(s): NONE PHOTOGRAPHY MANAGER/Reproductive: NONE Surgical History Surgical History: non-contributory Past Family/Social History Psychosocial History Where do you live? Home Who Do You Live With? spouse Services at Home: None Smoking Status: Current Everyday Smoker ETOH Use: denies use Illicit Drug Use: denies illicit drug use Functional Ability ADLs Independent: dressing, eating, toileting, bathing. Ambulation: independent IADLs Independent: shopping, housework, finances, food prep, telephone, transportation , medication admin. Employment History Employment Disability Review of Systems Review of Systems Constitutional: Denies: chills, fever. EENTM: Denies: blurred vision, double vision, visual changes, eye pain, hearing changes , nasal congestion. Cardiovascular: Denies: chest pain, palpitations, syncope. Respiratory: Denies: cough, short of breath, wheezing. GI: Reports: abdominal pain, diarrhea, nausea, changes in stool. Genitourinary: Denies: dysuria. Musculoskeletal: Denies: joint swelling, neck pain. Skin: Denies: lesions, rash. Neurological/Psychological: Reports: ataxia, headache. Denies: anxiety, confusion. Hematologic/Endocrine: Denies: bruising, bleeding. Immunologic/Allergic: Denies: splenectomy. All Other Systems: Reviewed and Negative Exam & Diagnostic Data Last 24 Hrs of Vital Signs/I&O Vital Signs Date Time Temp Pulse Resp B/P B/P Pulse O2 O2 Flow FiO2 Mean Ox Delivery Rate 10/08 1314 98.0 73 20 163/95 99 Room Air Intake & Output 10/08 1600 10/08 0800 06 0000 Intake Total 1000 Output Total Balance 1000 Intake, IV 1000 Patient 192 lb Weight Physical Exam General Appearance Alert, Oriented X3, Cooperative, No Acute Distress Skin No Significant Lesion Skin Temp/Moisture Exam: Warm/Dry HEENT Atraumatic, PERRLA, EOMI, Slightly dry oral mucosa, Fundoscopic exam unremarkable, no nystagmus on extraocular muscle testing Neck Supple, No JVD, +2 Carotid Pulse wo Bruit Lymphatic Cervical nl Cardiovascular Regular Rate, Normal S1, Normal S2 Lungs Clear to Auscultation, Normal Air Movement Abdomen Normal Bowel Sounds, Soft, Tenderness to deep palpation of epigastric region, obese, no hepatosplenomegaly/masses appreciated Neurological Normal Speech, Strength at 5/5 X4 Ext, Normal Tone, Cranial Nerves 3-12 NL, Reflexes 2+, Downgoing babinski Extremities No Clubbing, No Cyanosis, No Tenderness/Swelling Vascular Pulses Symmetrical Last 24 Hrs of Labs/[place]: Laboratory Tests 10/08/16 1349: Urinalysis LIGHT H, Urine Color VERÓNICA, Urine Clarity HAZY H, Urine pH 6.0, Ur Specific Marcellus 1.025, Urine Protein 100 H, Urine Ketones NEG, Urine Nitrite NEG, Urine Bilirubin NEG@ICTO, Urine Urobilinogen 0.2, Ur Leukocyte Esterase NEG , Ur Microscopic SEDIMENT EXAMINED, Urine RBC 15-25 H, Urine WBC 1-3 H, Ur Epithelial Cells MOD H, Urine Crystals 3+ CA OX H, Urine Bacteria MOD H, Hyaline Casts RARE H, Urine Mucus FEW, Urine Hemoglobin MOD H, Urine Glucose NEG 10/08/16 1322: Anion Gap 9, Estimated GFR > 60, BUN/Creatinine Ratio 28.6 H, Glucose 129 H, Lactic Acid 1.4, Calcium 9.7, Total Bilirubin 0.6, AST 23, ALT 39, Alkaline Phosphatase 84, Total Protein 7.3, Albumin 4.3, Globulin 3.0, Albumin/Globulin Ratio 1.4, Lipase 281, CBC w Diff NO MAN DIFF REQ, RBC 4.97, MCV 93.4, MCH 30.5, RDW 14.1, MPV 6.6 L, Gran % 88.8 H, Lymphocytes % 8.4 L, Monocytes % 2.4, Eosinophils % 0, Basophils % 0.4, Absolute Granulocytes 10.9 H, Absolute Lymphocytes 1.0 L, Absolute Monocytes 0.3, Absolute Eosinophils 0, Absolute Basophils 0.1, PUBS MCHC 32.7 L Diagnostic Data EKG Results NSR HR 67 bpm, QTC 423, UT 112, no change from prior. Other Results US RUQ: IMPRESSION: Unremarkable right upper quadrant abdominal ultrasound. No cholelithiasis or secondary signs of acute cholecystitis. Head MRI: FINDINGS: There is motion on the acquired images. The patient was quite claustrophobic. The gradient recalled echo sequence was not acquired. There is no acute brain ischemia. There is normal appearance of the ventricles, sulci, and extra-axial CSF spaces with minor periventricular T2 prolongation compatible with chronic microangiopathy. No extra-axial collections, mass effect, or shift of the normally midline structures. The major arterial and venous flow voids are preserved. Accounting for a fair amount of motion degradation no convincing abnormal enhancement after gadolinium administration. The craniocervical junction and supersellar region appear unremarkable. Marrow signal appears grossly preserved. The imaged paranasal sinuses are clear. The mastoid air cells appear clear although hypopneumatized. The orbits appear unremarkable. IMPRESSION: Motion degraded study without evidence of acute brain ischemia. The caliber of the ventricular system appears normal. No convincing change from 08/15/2016 across modalities. Assessment/Plan Assessment: Ms. Marquez is a pleasant 61 year old female with PMH bipolar disorder, anxiety and low back pain who presents with chief complaint of nausea, vomiting, epigastric discomfort and headache. Karen reports that every morning she experiences a severe headache that wakes her up from sleep with subsequent nausea followed by 5-10 episodes of persistent vomiting. Associated symptoms include dizziness, impaired balance and 2-3 episodes of diarrhea daily for about 2 months. In the ED: Vital signs showed T 98.0, HR 73, RR 20, BP 163/95 and O2 saturation 99% on room air. Labs were significant for WBC 12.2 with 88.8% granulocytes, H&H 15.2/46.4, Plt 239, and unremarkable BEP except for slightly elevated BUN to 20. Lactic acid 1.4, AST/ALT within normal limits, lipase 281. Urine shows epithelial cells with high protein, 15-25 RBCs, 103 WBCs, 3+ Ca OX crystals, rare hyaline casts and moderate bacteria. Patient is admitted to the general medicine floor and the following is the management: 1. Nausea, vomiting, diarrhea * Differential includes polypharmacy, gastroenteritis, gastritis, elevated intracranial pressure, dyspepsia * Continue D5W at 150 cc/h, start clear liquid diet, advance diet as tolerated * IV prochlorperazine 10 mg Q6PRN * IV protonix daily * Hold both imitrex and abilify as both are reported to cause nausea and vomiting * If patient has diarrhea, send for culture * GI consult placed, follow up recommendations 2. Intractable headache * Neuro exam nonfocal and without obvious deficit * Head MRI negative for acute pathology * Abilify also noted to have side effect of headaches, hold for now * IV morphine PRN severe pain, percocet PRN moderate pain, PO tylenol mild pain * Neuro consult placed for the AM, follow up recommendations 3. Mental health issues * Hold abilify due to possible contribution to nausea & vomiting * Psychiatric consult to discuss alternatives to abilify treatment 4. Tobacco use * Tobacco cessation counseling provided * Nicotine patch 14 mg topical daily FULL CODE DVTP: SC Lovenox Diet: NPO Mild to severe pain pathway As Ranked By This Provider Problem List: 1. Emesis, persistent 2. Epigastric pain 3. Vomiting 4. Bipolar 1 disorder, depressed Core Measures/Miscellaneous Acute Coronary Syndrome ACS Diagnosis: No Cerebrovascular Accident CVA/TIA Diagnosis: No Congestive Heart Failure CHF Diagnosis: No VTE (View Protocol) VTE Risk Factors: Acute medical illness, Age > 40, Obesity No Mech VTE prophylaxis d/t: No contraindications No VTE Pharm Prophylaxis d/t: No contraindications VTE Diagnosis: No VTE Type: NONE VTE Confirmed by (Test): NONE Sepsis (View Protocol) Severe Sepsis Present: No Septic Shock Septic Shock Present: No Miscellaneous Documentation Attending Case Discussed With: Dr. Dmitry MD Primary Care Physician: BRIANNA RUIZ MDBHA Patient sees these Specialists Dr. Jose Maria Atkinson, gastroenterology Dr. Moustapha MD for PCP Level of Patient Care: General Medicine SEBASTIÁN AHMADI 10/08/16 1730: Resident Review Statement Resident Statement: examined this patient, discussed with internal auditor, agreed with internal auditor, discussed with family, reviewed EMR data (avail), discussed with nursing , discussed with case mgmt, reviewed images, amended to note Other Findings: Jeremy 61-year-old woman with past medical history significant for anxiety, depression, and presented at the emergency room with the chief complaint of intractable nausea and vomiting for 2 months. In July 2016 patient was admitted with the same complaint at [facility], during which she had upper GI endoscopy which was unremarkable. Patient follow up with Dr. Atkinson as an outpatient. She was restarted on when necessary Zofran for nausea. After minimal improvement in her symptomatology, and nausea and vomiting relapsed. Patient reports morning nausea and 4-5, non-bloody vomitting. According to patient these episodes of morning vomiting a forceful and associated with epigastric abdominal pain. She also mentioned that for the past 60 days she has woked up, almost everydat, with excruciating pounding headache. Patient denies any: Numbness, weakness, change in sensation, sudden change in vision, recent episode of dizziness and fall, nighttime sweating, weight loss, past medical history or family history of cancer/CONTENT MANAGEMENT CONSULTANT cancer. She has not started any new medication, except for bedtime Abilify, but according to patient she has been taking Imitrix more often for the past two month. Review of system: Patient reports epigastric abdominal pain associated with intractable nausea and vomiting, morning headaches. Vital signs: BP: 163/95, 73, 20, 98. Physical exam: HEENT: Mucous membranes are dry, PERR, - nystagmus; Heart and lungs: No significant findings, neuro exam: Alert and oriented 3, NO motor /sensory deficits, reflexes 2+ X4, No cerebellar sign. Pertinent: WBC:12.2 no bandemia, H&H::15.2/46.4,BUN: 20, Cr: 0.7. EKG: NSRR, Nl [place]. Head MRI: List of active problems 1) intractable nausea: DD: Increased intracranial pressure ( malignancy), GI causes including hiatal hernia and gastroesophageal reflux disease, dysmotility, upper GI stricture; polypharmacy: Considering increasing frequency of using Imitrix that could rarely cause N/V. #Admit to general medical floor #MRI of the head to rule out intracranial pathology # Compazine 10 mg Q6h # continue IV hydration NL saline # Keep NPO for tonight till nausea resolved # fall and aspiration percausion # Nicotine patch 14 mg daily # Stop Imitrix and Abilify # consult Neuro for headache # po protonix 40 mg daily DVT: levonox 40U sc daily pain mild/mod/severe pathway IVAN STOVALL MD 10/09/16 1210: Attending MD Review Statement Attending Statement Attending MD Statement: examined this patient, discuss w/resident/PA/ACCOUNT INFORMATION CLERK, agreed w/resident/PA/ACCOUNT INFORMATION CLERK, reviewed EMR data (avail), reviewed images, amended to note Attending Assessment/Plan: Also see my addendum.
--- NOTE | 2016-10-08 17:14 | ULTRASOUND REPORT ---
EXAMINATION: US ABDOMEN LIMITED CLINICAL INFORMATION: Right upper quadrant abdominal pain. COMPARISON: CT abdomen and pelvis 05/08/2016. TECHNIQUE: Real-time imaging of the right upper quadrant abdominal viscera. FINDINGS: PANCREAS: The visualized portions of the pancreas appear unremarkable. The distal pancreatic body and tail are obscured by overlying bowel gas. LIVER: Unremarkable. The liver demonstrates normal size, contour and echogenicity. No focal lesion or intrahepatic biliary duct dilatation. GALLBLADDER: Unremarkable. The gallbladder is physiologically distended without evidence of stones, sludge, polyps, wall thickening or pericholecystic fluid. COMMON BILE DUCT: Normal in caliber measuring 0.5 cm in diameter. RIGHT KIDNEY: Unremarkable. No hydronephrosis. No renal calculi or focal parenchymal lesions. The kidney measures 9.5 cm in maximum dimension. FREE FLUID: None. IMPRESSION: Unremarkable right upper quadrant abdominal ultrasound. No cholelithiasis or secondary signs of acute cholecystitis.
--- NOTE | 2016-10-08 18:26 | NUR ---
ROUTINE MEDS GIVEN. PT LYING ON STRETCHER, NO DISTRESS, AWAITING BED ASSIGNMENT. GRATEFUL FOR BIPIN PATCH.
--- NOTE | 2016-10-08 19:37 | NUR ---
PT GOING TO ROOM 216-2
--- NOTE | 2016-10-08 20:11 | NUR ---
PT REQUESTING XANAX NOW STATING SHE TAKES HER TID DOSING AT 1400/1800/2200 DAILY. SALESPERSON FLYING SQUAD PAGED, OK TO GIVE 1800 DOSE NOW AND GIVE 2200 DOSE AROUND 2300. MEDICATED WITH XANAX, WALKING HALLWAY INTERMITTANTLY AND USING CELL PHONE, NO COMPLAINTS. WAITING FOR ROOM TO BE CLEANED ON 2NB.
--- NOTE | 2016-10-08 21:27 | NUR ---
REPORT CALLED TO NATALIE ON 2NB, BED IS READY, TRANSPORT BOOKED. PT/ AWARE.
[2016-10-08 22:50] VITALS: BP 150/84
--- NOTE | 2016-10-09 03:20 | NUR ---
NURSING NOTE: LATE ENTRY. PT ARRIVED TO FLOOR AT 2151 FROM ED BY STRETCHER. PT IS A&OX3, ON ROOM AIR, NO DISTRESS NOTED. PTS SKIN INTACT. PT DENIES N/V/D AT THIS TIME. HAT IN BATHROOM IF PT HAS A BM W/DIARRHEA TO COLLECT STOOL SAMPLE. PT IS AWARE TO NOTIFY THIS RN OF BM. PT TOLERATING CLEAR LIQUID DIET. PT IS INDEPENDENT, STEADY GAIT. PT RECEIVING IV FLUIDS AT 150 ML/HR. PT DENIES PAIN AT THIS TIME. PRN XANAX GIVEN. VSS. PT SHOWN HOW TO USE CALL LIGHT SYSTEM. INFORMATION PACKET GIVEN. NO FURTHER ORDERS FROM MD AT THIS TIME. WILL CONTINUE TO MONITOR.
--- NOTE | 2016-10-09 06:58 | PN- Housestaff ---
See Addendum Subjective Follow-up For: Nausea, vomiting, diarrhea Intractable headache Anxiety Tobacco use Subjective: Patient seen and examined at bedside this AM. She is sitting up comfortably in bed in no acute distress. She reports her headache has not worsened and she has not vomited/experienced diarrhea this AM. She is amenable to psychiatric consult to evaluate home psychiatric meds including abilify. Though at this time patient requests no medications as she feels well. She is also amenable to holding imitrex and following up with neurology consult to discuss other options for her headaches. Of note, patient was placed in observation in error. She is a FULL ADMISSION and order for admit to inpatient has been placed today. Review of Systems Constitutional: Denies: chills, fever, malaise. EENTM: Denies: blurred vision, visual changes, hearing changes, nasal congestion. Cardiovascular: Denies: chest pain, palpitations. Respiratory: Denies: cough, short of breath. Gastrointestinal: Reports: nausea. Denies: abdominal pain, vomiting. Genitourinary: Denies: dysuria, hematuria. Musculoskeletal: Denies: back pain. Skin: Denies: rash. Neurological/Psychological: Reports: headache. Denies: anxiety. Hematologic/Endocrine: Denies: bruising, bleeding. Objective Last 24 Hrs of Vital Signs/I&O Vital Signs Date Time Temp Pulse Resp B/P B/P Pulse O2 O2 Flow FiO2 Mean Ox Delivery Rate 10/09 0850 4.0 10/09 0700 98.1 99 20 120/78 95 Room Air 10/08 2250 98.5 73 18 150/84 96 Room Air 10/08 1749 98.0 80 18 137/83 98 Room Air 10/08 1738 Room Air 10/08 1314 98.0 73 20 163/95 99 Room Air Intake & Output 10/09 1600 10/09 0800 10/09 0000 Intake Total 1440 490 Output Total Balance 1440 490 Intake, IV 1200 150 Intake, Oral 240 340 Patient 192 lb Weight Physical Exam General Appearance: Alert, Oriented X3, Cooperative, No Acute Distress Skin: No Significant Lesion Skin Temp/Moisture Exam: Warm/Dry HEENT: Atraumatic, PERRLA, EOMI, Mucous Membr. moist/pink Neck: Supple, No JVD Lymphatic: Cervical nl Cardiovascular: Regular Rate, Normal S1, Normal S2 Lungs: Clear to Auscultation, Normal Air Movement Abdomen: Normal Bowel Sounds, Soft, No Tenderness Neurological: Normal Speech, Normal Tone Extremities: No Clubbing, No Cyanosis Vascular: Pulses Symmetrical Current Medications: Current Medications Sig/Mike Start time Last Medication Dose Route Stop Time Status Admin Acetaminophen 650 MG Q6P PRN 10/08 1730 10/09 PO 0850 Alprazolam 1 MG Q8 10/08 2200 DC PO 10/15 2159 Alprazolam 1 MG 1400,1800,2200 10/08 2200 AC 10/09 PO 10/15 2159 0000 Alprazolam 1 MG .[1400, 1800, 2200] 10/08 2014 MO 10/08 PO 10/08 Alprazolam 0 .STK-MED ONE 10/08 2014 DC PO Dextrose/Water 1,000 ML .Q6H40M 10/08 1715 DC 10/09 IV 0000 Enoxaparin Sodium 0 .STK-MED ONE 10/08 1826 DC SC Enoxaparin Sodium 40 MG DAILY 10/08 1718 10/09 SC 0848 Gabapentin 300 MG AT BEDTIME 10/08 2200 AC 10/08 PO 2359 Morphine Sulfate 2 MG Q4P PRN 10/08 1730 10/09 IV 0615 Morphine Sulfate 0 .STK-MED ONE 10/08 1400 DC .ROUTE Morphine Sulfate 6 MG ONCE ONE 10/08 1330 DC 10/08 IV 10/08 1331 1408 Multivitamins 1 TAB DAILY 10/08 1725 10/09 Therapeutic PO 0849 Nicotine 0 .STK-MED ONE 10/08 1826 DC TOP Nicotine 14 MG DAILY 10/08 1734 10/09 TOP 0848 Ondansetron HCl 0 .STK-MED ONE 10/08 1738 DC .ROUTE Ondansetron HCl 4 MG ONCE ONE 10/08 1730 DC 10/08 IV 10/08 1731 1738 Oxycodone/ 1 TAB Q6P PRN 10/08 1730 AC Acetaminophen PO Pantoprazole Sodium 0 .STK-MED ONE 10/08 1826 DC IV Pantoprazole Sodium 40 MG DAILY 10/08 1729 AC 10/09 IV 0848 Prochlorperazine 10 MG Q6-PRN PRN 10/08 1730 AC IV Prochlorperazine 10 MG ONCE ONE 10/08 1330 DC 10/08 IV 10/08 1331 1408 Sodium Chloride 1,000 ML BOLUS ONE 10/08 1330 DC 10/08 IV 10/08 1529 1408 Last 24 Hrs of Lab/[place] Results Last 24 Hrs of Labs/Mics: Laboratory Tests 10/09/16 0626: Anion Gap 10, Estimated GFR > 60, BUN/Creatinine Ratio 12.9, CBC w Diff NO MAN DIFF REQ, RBC 4.10 L, MCV 92.0, MCH 31.0, RDW 14.1, MPV 7.0 L, Gran % 64.9, Lymphocytes % 23.8, Monocytes % 10.0 H, Eosinophils % 1.0, Basophils % 0.3, Absolute Granulocytes 5.5, Absolute Lymphocytes 2.0, Absolute Monocytes 0.8 H, Absolute Eosinophils 0.1, Absolute Basophils 0, PUBS MCHC 33.7 10/08/16 1349: Urinalysis LIGHT H, Urine Color VERÓNICA, Urine Clarity HAZY H, Urine pH 6.0, Ur Specific [place] 1.025, Urine Protein 100 H, Urine Ketones NEG, Urine Nitrite NEG, Urine Bilirubin NEG@ICTO, Urine Urobilinogen 0.2, Ur Leukocyte Esterase NEG , Ur Microscopic SEDIMENT EXAMINED, Urine RBC 15-25 H, Urine WBC 1-3 H, Ur Epithelial Cells MOD H, Urine Crystals 3+ CA OX H, Urine Bacteria MOD H, Hyaline Casts RARE H, Urine Mucus FEW, Urine Hemoglobin MOD H, Urine Glucose NEG 10/08/16 1322: Anion Gap 9, Estimated GFR > 60, BUN/Creatinine Ratio 28.6 H, Glucose 129 H, Lactic Acid 1.4, Calcium 9.7, Total Bilirubin 0.6, AST 23, ALT 39, Alkaline Phosphatase 84, Total Protein 7.3, Albumin 4.3, Globulin 3.0, Albumin/Globulin Ratio 1.4, Lipase 281, CBC w Diff NO MAN DIFF REQ, RBC 4.97, MCV 93.4, MCH 30.5, RDW 14.1, MPV 6.6 L, Gran % 88.8 H, Lymphocytes % 8.4 L, Monocytes % 2.4, Eosinophils % 0, Basophils % 0.4, Absolute Granulocytes 10.9 H, Absolute Lymphocytes 1.0 L, Absolute Monocytes 0.3, Absolute Eosinophils 0, Absolute Basophils 0.1, PUBS MCHC 32.7 L Orders Miscellaneous Findings: Head MRI: IMPRESSION: Motion degraded study without evidence of acute brain ischemia. The caliber of the ventricular system appears normal. No convincing change from 08/15/2016 across modalities. RUQ US: IMPRESSION: Unremarkable right upper quadrant abdominal ultrasound. No cholelithiasis or secondary signs of acute cholecystitis. Assessment/Plan Assessment: Ms. Marquez is a pleasant 61 year old female with PMH bipolar disorder, anxiety and low back pain who presents with chief complaint of nausea, vomiting, epigastric discomfort and headache. Karen reports that every morning she experiences a severe headache that wakes her up from sleep with subsequent nausea followed by 5-10 episodes of persistent vomiting. Associated symptoms include dizziness, impaired balance and 2-3 episodes of diarrhea daily for about 2 months. In the ED: Vital signs showed T 98.0, HR 73, RR 20, BP 163/95 and O2 saturation 99% on room air. Labs were significant for WBC 12.2 with 88.8% granulocytes, H&H 15.2/46.4, Plt 239, and unremarkable BEP except for slightly elevated BUN to 20. Lactic acid 1.4, AST/ALT within normal limits, lipase 281. Urine shows epithelial cells with high protein, 15-25 RBCs, 103 WBCs, 3+ Ca OX crystals, rare hyaline casts and moderate bacteria. Patient is admitted to the general medicine floor and the following is the management: 1. Nausea, vomiting, diarrhea * Differential includes polypharmacy, gastroenteritis, gastritis, elevated intracranial pressure, dyspepsia * Elevated intracranial pressure unlikely in setting of unremarkable head MRI * D5W at 150 cc/h has been discontinued as patient is tolerating clear liquid diet well, will advance to full liquid at lunch and regular diet at dinner time if patient continues to improve * IV prochlorperazine 10 mg Q6PRN nausea * IV protonix daily * Hold both imitrex and abilify as both are reported to cause nausea and vomiting * If patient has diarrhea, send for culture * GI consult placed, follow up recommendations 2. Intractable headache * Neuro exam nonfocal and without obvious deficit * Head MRI negative for acute pathology * Abilify also noted to have side effect of headaches, hold for now * IV morphine PRN severe pain, percocet PRN moderate pain, PO tylenol mild pain * Neuro consult placed for today, follow up recommendations (discuss medicaiton plan for headaches other than imitrex) 3. Mental health issues * Hold abilify due to possible contribution to nausea & vomiting * Psychiatric consult placed for today to discuss alternatives to abilify treatment 4. Tobacco use * Tobacco cessation counseling provided * Nicotine patch 14 mg topical daily FULL CODE DVTP: SC Lovenox Diet: NPO Mild to severe pain pathway Problem List: 1. Emesis, persistent 2. Epigastric pain Pain Ratin Pain Location: Headache Pain Goal: Pain 4 or less Pain Plan: Tylenol PRN mild pain Percocet PRN moderate pain IV morphine PRN severe pain Tomorrow's Labs & Rationales: None.
[2016-10-09 07:00] VITALS: BP 120/78
[2016-10-09 07:55] LABS: ABSOLUTE BASOPHIL COUNT 0 /CUMM (0.0-0.2); ABSOLUTE EOSINOPHIL COUNT 0.1 /CUMM (0.0-0.7); ABSOLUTE GRANULOCYTE CT 5.5 /CUMM (1.4-6.5); ABSOLUTE MONOCYTE COUNT 0.8 /CUMM (0.10-0.60); BASOPHIL % 0.3 % (0.0-2.0); GRANULOCYTE % 64.9 % (42.2-75.2); MEAN CORPUSCULAR HGB CONC 33.7 G/DL (33.0-37.0); PLATELET COUNT 191 /CUMM (130-400); RBC DISTRIBUTION WIDTH 14.1 % (11.5-14.5); WHITE BLOOD CELL COUNT 8.5 /CUMM (4.8-10.8)
--- NOTE | 2016-10-09 08:08 | PN- Student ---
Subjective Subjective: Student H&P - [birth year] CC: nausea, vomiting, diarrhea, headaches source: patient HPI: Mrs. Marquez was sent to ED by Dr. Gerard (PCP) for persistent nausea, vomiting w/ abdominal pain, and headaches for about 2 months. She reports her abdominal pain as 8/10 during vomiting, and her headaches are described as 7/10 pain that is shifting, sometimes global, that frequently wakes her up from sleep. She has been taking higher doses of imitrex daily for the headache but has not gotten any relief. She states that her symptoms are worse in the mornings and that her nausea is only relieved by compazine not zofran, and her headaches are relieved by morphine (also helps abdominal pain). She also reports 2-3 episodes of non- bloody, stringy/mucus stools per day, balance issues (friends say she walks like she's drunk without drinking), and dizziness with no falls reported. She saw Dr. Atkinson for these symptoms in july for which he did an endoscopy that came back negative for any causes. Allergies: -NSAIDs--> Gastric issues PMH: Patient has history of anxiety for which she takes xanax and recently prescribed abilify, Bipolar disorder for which she takes aripiprazole, and chronic back pain for which she takes oxycodone/acetaminophen and cyclobenzaprine. Patient follows up with Dr. 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 Her PCP is Dr. Moustapha MD. FH: Patient was adopted so exact family history is unknown. She believes there is a history of heart disease and emphysema in her biological history though. SH: Patients social history is significant for tobacco use with 1 pack/day for 40 years (40 pack year). She denies alcohol or illicit drug use. She lives at home with her and her 6 cats. She is currently unemployed and is on disability for mental health issues. ROS: Constitutional-Denies: chills, fever. EENTM-Denies: blurred vision, double vision, visual changes, eye pain, hearing changes, nasal congestion. Cardiovascular-Denies: chest pain, palpitations, syncope. Respiratory-Denies: cough, short of breath, wheezing. GI-Reports: abdominal pain, diarrhea, nausea, changes in stool. Genitourinary-Denies: dysuria. Musculoskeletal-Denies: joint swelling, neck pain. Skin-Denies: lesions, rash. Neurological/Psychological-Reports: ataxia, headache. Denies: anxiety, confusion. Hematologic/Endocrine-Denies: bruising, bleeding. Immunologic/Allergic-Denies: splenectomy. All Other Systems-Reviewed and Negative Objective Objective: Vital Signs Date Time Temp Pulse Resp B/P B/P Pulse O2 O2 Flow FiO2 Mean Ox Delivery Rate 10/09 0850 4.0 10/09 0700 98.1 99 20 120/78 95 Room Air 10/08 2250 98.5 73 18 150/84 96 Room Air 10/08 1749 98.0 80 18 137/83 98 Room Air 10/08 1738 Room Air 10/08 1314 98.0 73 20 163/95 99 Room Air EKG Results: NSR HR 67 bpm, QTC 423, AK 112, no change from prior. US RUQ IMPRESSION: Unremarkable right upper quadrant abdominal ultrasound. No cholelithiasis or secondary signs of acute cholecystitis. MRI of head IMPRESSION: Motion degraded study without evidence of acute brain ischemia. The caliber of the ventricular system appears normal. No convincing change from 08/15/[address] abdomen and pelvis (October 06, 2016): No acute abnormality CT scan abdomen and pelvis. Nodule right adrenal gland measuring 2 cm indeterminate on this postcontrast study. A CT adrenal study would be helpful for further assessment. PE: General- AAOx3, NAD, well nourished HEENT- atruamatic, PERRLA, membranes slightly dry, funduscopic exam negative for papilledema but positive for early cataracts. Neck-no lymphadenopathy or thyromegaly, trachea midline, no JVD CV- peripheral pulses present and full, S1 and S2 present, RRR, no murmurs or rubs heard Respiratory- equal chest rise bilaterally, vesicular sounds auscultated in all lung lisa, no distress Abdominal- slight abdominal pain in epigastric area on palpation, no distention or guarding, bowel sounds present and normal. Extremity- no edema present, no lesions, 5/5 strength x all extremities Neuro- CN II-XII intact, babinski negative, 2+ patellar reflexes, motor and sensation grossly intact Skin- warm and well perfused, no lesions noted on exam Results Results: Laboratory Tests 10/09/16 0626: Anion Gap 10, Estimated GFR > 60, BUN/Creatinine Ratio 12.9, CBC w Diff NO MAN DIFF REQ, RBC 4.10 L, MCV 92.0, MCH 31.0, RDW 14.1, MPV 7.0 L, Gran % 64.9, Lymphocytes % 23.8, Monocytes % 10.0 H, Eosinophils % 1.0, Basophils % 0.3, Absolute Granulocytes 5.5, Absolute Lymphocytes 2.0, Absolute Monocytes 0.8 H, Absolute Eosinophils 0.1, Absolute Basophils 0, PUBS MCHC 33.7 10/08/16 1349: Urinalysis LIGHT H, Urine Color VERÓNICA, Urine Clarity HAZY H, Urine pH 6.0, Ur Specific [place] 1.025, Urine Protein 100 H, Urine Ketones NEG, Urine Nitrite NEG, Urine Bilirubin NEG@ICTO, Urine Urobilinogen 0.2, Ur Leukocyte Esterase NEG , Ur Microscopic SEDIMENT EXAMINED, Urine RBC 15-25 H, Urine WBC 1-3 H, Ur Epithelial Cells MOD H, Urine Crystals 3+ CA OX H, Urine Bacteria MOD H, Hyaline Casts RARE H, Urine Mucus FEW, Urine Hemoglobin MOD H, Urine Glucose NEG 10/08/16 1322: Anion Gap 9, Estimated GFR > 60, BUN/Creatinine Ratio 28.6 H, Glucose 129 H, Lactic Acid 1.4, Calcium 9.7, Total Bilirubin 0.6, AST 23, ALT 39, Alkaline Phosphatase 84, Total Protein 7.3, Albumin 4.3, Globulin 3.0, Albumin/Globulin Ratio 1.4, Lipase 281, CBC w Diff NO MAN DIFF REQ, RBC 4.97, MCV 93.4, MCH 30.5, RDW 14.1, MPV 6.6 L, Gran % 88.8 H, Lymphocytes % 8.4 L, Monocytes % 2.4, Eosinophils % 0, Basophils % 0.4, Absolute Granulocytes 10.9 H, Absolute Lymphocytes 1.0 L, Absolute Monocytes 0.3, Absolute Eosinophils 0, Absolute Basophils 0.1, PUBS MCHC 32.7 L Assessment/Plan Assessment: Mrs. Marquez is a 61 yo white F with a PMH of anxiety, bipolar disorder (on abilify), and chronic low back pain who presented to the ED on 10/08/16 with nausea, vomiting, epigastric pain, and headaches that have been occuring for the past 2 months. She also reported 2-3 episodes of non bloody stringy diarrhea per day for the last 1-2 months, however she has had none in the hospital. She described her symptoms as 8/10 abdominal pain on vomiting, and 7/10 for headaches. Her symptoms are worse in the morning typically with the headache causing her to wake up from sleep. she reports that morphine is the only thing that helps her headaches and that it also helps her abdominal pain. She saw Dr. Atkinson in july for the same symptoms, endoscopy was done which showed no cause of her symptoms. There are also complaints of balance issues (walking like she is drunk, as per friends), and dizziness without any falls. She denied any fever , chills, vision changes, dyspnea, chest pain, dysuria, weakness or numbness. Plan: Patient will be admitted to general medicine floor for management of N/V and intractable headache. Will confirm rest of the medications and dosages as well as order specialist consults for problems listed below. Problem list: 1. Nausea, vomiting, abdominal pain- -possible causes are drug side effects, elevated intracranial pressure ( although MRI was negative), GI pathology -Continue D5W at 150 cc/h, start clear liquid diet, advance diet as tolerated -IV prochlorperazine 10 mg Q6 PRN -IV protonix daily -Hold both imitrex and abilify (both are reported to cause nausea and vomiting) -Culture stool if diarrhea -GI consult placed, follow up recommendations 2. Headache- -Neuro exam on admission nonfocal and without obvious deficit, funduscopic exam only positive for cataracts, no papilledema noted. -Head MRI negative -Abilify noted to have side effect of headaches, hold for now -IV morphine PRN severe pain, percocet PRN moderate pain, PO tylenol mild pain -Neuro consult placed for the AM, will appreciate recommendations 3. Mental health issues- -Psych consult placed to discuss discontinuation of psychotropic medications ( at patients behest) or changing abilify due to its side effects -abilify being held as stated above 4. Tobacco use- -Tobacco cessation counseling provided -Nicotine patch 14 mg topical daily Diet- full liquid Code Status- Full DVT prophylaxis- lovenox SQ
[2016-10-09 08:22] LABS: HEMATOCRIT 37.7 % (37-47)
--- NOTE | 2016-10-09 08:35 | PN- Student ---
Subjective Subjective: This morning Mrs. Marquez states that her nausea has improved since admission. She reports that she still has slight nausea with no vomiting and that her headache feels worse than yesterday 11/05. She reports no dysuria but notes that her urine looks darker than usual. She denies chest pain, breathing problems, back pain, extremity pain, or abdominal pain at rest. She does have a cough which she says doesnt produce anything. Objective Objective: Vital Signs Date Time Temp Pulse Resp B/P B/P Pulse O2 O2 Flow FiO2 Mean Ox Delivery Rate 10/08 2250 98.5 73 18 150/84 96 Room Air 10/08 1749 98.0 80 18 137/83 98 Room Air 10/08 1738 Room Air 10/08 1314 98.0 73 20 163/95 99 Room Air Intake & Output 10/09 1600 10/09 0800 10/09 0000 Intake Total 490 Output Total Balance 490 Intake, IV 150 Intake, Oral 340 Patient 192 lb Weight PE: General- AAO x 3, cooperative, well nourished, NAD HEENT- atraumatic, PERRLA, membranes moist and pink Neck- supple, no lymphadenopathy or thyromegaly, trachea is midline CV- S1 and S2 heard, regular rate and rhythm, no murmurs or rubs appreciated, distal pulses present and full Respiratory- equal chest rise bilaterally, expiratory wheeze heard on auscultation more prominent in right middle and lower lobes. No distress. Abdomen- bowel sounds heard, soft with slight epigastric tenderness on palpation. Skin- warm and well perfused, no lesions noted on exam. Ext- 5/5 strength x all 4 extremities, motor and sensations grossly intact Results Results: Laboratory Tests 10/09/16 0626: Anion Gap 10, Estimated GFR > 60, BUN/Creatinine Ratio 12.9, CBC w Diff NO MAN DIFF REQ, RBC 4.10 L, MCV 92.0, MCH 31.0, RDW 14.1, MPV 7.0 L, Gran % 64.9, Lymphocytes % 23.8, Monocytes % 10.0 H, Eosinophils % 1.0, Basophils % 0.3, Absolute Granulocytes 5.5, Absolute Lymphocytes 2.0, Absolute Monocytes 0.8 H, Absolute Eosinophils 0.1, Absolute Basophils 0, PUBS MCHC 33.7 10/08/16 1349: Urinalysis LIGHT H, Urine Color VERÓNICA, Urine Clarity HAZY H, Urine pH 6.0, Ur Specific [place] 1.025, Urine Protein 100 H, Urine Ketones NEG, Urine Nitrite NEG, Urine Bilirubin NEG@ICTO, Urine Urobilinogen 0.2, Ur Leukocyte Esterase NEG , Ur Microscopic SEDIMENT EXAMINED, Urine RBC 15-25 H, Urine WBC 1-3 H, Ur Epithelial Cells MOD H, Urine Crystals 3+ CA OX H, Urine Bacteria MOD H, Hyaline Casts RARE H, Urine Mucus FEW, Urine Hemoglobin MOD H, Urine Glucose NEG 10/08/16 1322: Anion Gap 9, Estimated GFR > 60, BUN/Creatinine Ratio 28.6 H, Glucose 129 H, Lactic Acid 1.4, Calcium 9.7, Total Bilirubin 0.6, AST 23, ALT 39, Alkaline Phosphatase 84, Total Protein 7.3, Albumin 4.3, Globulin 3.0, Albumin/Globulin Ratio 1.4, Lipase 281, CBC w Diff NO MAN DIFF REQ, RBC 4.97, MCV 93.4, MCH 30.5, RDW 14.1, MPV 6.6 L, Gran % 88.8 H, Lymphocytes % 8.4 L, Monocytes % 2.4, Eosinophils % 0, Basophils % 0.4, Absolute Granulocytes 10.9 H, Absolute Lymphocytes 1.0 L, Absolute Monocytes 0.3, Absolute Eosinophils 0, Absolute Basophils 0.1, PUBS MCHC 32.7 L Assessment/Plan Assessment: Mrs. Marquez is a 61 yo white F with a PMH of anxiety, bipolar disorder (on abilify), and chronic low back pain who presented to the ED on 10/08/16 with nausea, vomiting, epigastric pain, and headaches that have been occuring for the past 2 months. She also reported 2-3 episodes of non bloody stringy diarrhea per day for the last 1-2 months, however she has had none in the hospital. She described her symptoms as 8/10 abdominal pain on vomiting, and 7/10 for headaches. Her symptoms are worse in the morning typically with the headache causing her to wake up from sleep. she reports that morphine is the only thing that helps her headaches and that it also helps her abdominal pain. She saw Dr. Atkinson in july for the same symptoms, endoscopy was done which showed no cause of her symptoms. There are also complaints of balance issues (walking like she is drunk, as per friends), and dizziness without any falls. She denied any fever , chills, vision changes, dyspnea, chest pain, dysuria, weakness or numbness. Vitals on admission: temp- 98, HR- 73, RR- 20, BP- 163/95, SpO2- 99% on room air. Labs significant for WBC- 12.2, H/H- 15.2/46.4, Lactic acid- 1.4, T. bilirubin- 0.6, AST- 23, ALT-39, BUN- 20, Soldering Technician- 0.7. EKG Results: NSR HR 67 bpm, QTC 423, HI 112, no change from prior. US RUQ IMPRESSION: Unremarkable right upper quadrant abdominal ultrasound. No cholelithiasis or secondary signs of acute cholecystitis. MRI of head IMPRESSION: Motion degraded study without evidence of acute brain ischemia. The caliber of the ventricular system appears normal. No convincing change from 08/15/[address] abdomen and pelvis (October 06, 2016): No acute abnormality CT scan abdomen and pelvis. Nodule right adrenal gland measuring 2 cm indeterminate on this postcontrast study. A CT adrenal study would be helpful for further assessment. This morning she states that her nausea is a bit better and that she has had no vomiting. She describes her headache as worse with pain of 7/10. She reports not having a bowel movement during her hospital stay and reports no dysuria although urine color is darker. She had slight epigastric pain on palpation but no guarding or rigidity. Vitals today are temp- 98.5, HR- 73, RR- 18, BP- 150/84, SpO2- 96% on room air. labs today show WBC- 8.5, H/H- 12.7/37.7, BUN- 9, Soldering Technician-0.7 , K-3.7, CO2- 28. Current Medications Sig/Mike Start time Last Medication Dose Route Stop Time Status Admin Acetaminophen 650 MG Q6P PRN 10/08 1730 AC PO Alprazolam 1 MG Q8 10/08 2199 DC PO 10/15 2158 Alprazolam 1 MG 1400,1800,2200 10/08 2200 AC 10/09 PO 10/15 2158 0000 Alprazolam 1 MG .[1400, 1800, 2200] 10/08 2014 DC 10/08 PO 10/08 Alprazolam 0 .STK-MED ONE 10/08 2014 DC PO Dextrose/Water 1,000 ML .Q6H40M 10/08 1715 DC 10/09 IV 0000 Enoxaparin Sodium 0 .STK-MED ONE 10/08 1826 DC SC Enoxaparin Sodium 40 MG DAILY 10/08 1718 AC 10/08 SC 1825 Gabapentin 300 MG AT BEDTIME 10/08 2200 AC 10/08 PO 2359 Morphine Sulfate 2 MG Q4P PRN 10/08 1730 AC 10/09 IV 0615 Morphine Sulfate 0 .STK-MED ONE 10/08 1400 DC .ROUTE Morphine Sulfate 6 MG ONCE ONE 10/08 1330 DC 10/08 IV 10/08 1331 1408 Multivitamins 1 TAB DAILY 10/08 1725 AC Therapeutic PO Nicotine 0 .STK-MED ONE 10/08 1826 DC TOP Nicotine 14 MG DAILY 10/08 1734 AC 10/08 TOP 1825 Ondansetron HCl 0 .STK-MED ONE 10/08 1738 DC .ROUTE Ondansetron HCl 4 MG ONCE ONE 10/08 1730 DC 10/08 IV 10/08 1731 1738 Oxycodone/ 1 TAB Q6P PRN 10/08 1730 AC Acetaminophen PO Pantoprazole Sodium 0 .STK-MED ONE 10/08 1826 DC IV Pantoprazole Sodium 40 MG DAILY 10/08 1729 AC 10/08 IV 1825 Prochlorperazine 10 MG Q6-PRN PRN 10/08 1730 AC IV Prochlorperazine 10 MG ONCE ONE 10/08 1330 DC 10/08 IV 10/08 1331 1408 Sodium Chloride 1,000 ML BOLUS ONE 10/08 1330 DC 10/08 IV 10/08 1529 1408 Plan: patient admitted to general medicine floor for management. Problem list: 1. Nausea, vomiting, abdominal pain- -possible causes are drug side effects, elevated intracranial pressure although MRI was negative, GI pathology -Continue D5W at 150 cc/h, start full liquid diet, advance diet as tolerated -IV prochlorperazine 10 mg Q6 PRN -IV protonix daily -Hold both imitrex and abilify (both are reported to cause nausea and vomiting) -Culture stool if diarrhea -GI consult placed, follow up recommendations when available 2. Headache- -Neuro exam on admission nonfocal and without obvious deficit, funduscopic exam only positive for cataracts, no papilledema noted. -Head MRI negative -Abilify noted, as above, to have side effect of headaches, hold for now -Discontinue IV morphine, PO tylenol for mild pain -Neuro consult placed recommendations below: -topiramate at 25 mg daily at bedtime increased by 25 mg every week to an initial target dose of 50 mg twice a day. Outpatient follow up on discharge and adjust medications accordingly. No further neurodiagnostic studies are currently anticipated. 3. Mental health issues- -discontinue abilify and continue other psychiatric medications, as per psych. -follow up with outpatient psychiatric services. Next appointment [facility] on 12/05/16 at 3:00 PM 4. Tobacco use- -Tobacco cessation counseling provided -Nicotine patch 14 mg topical daily Diet- full liquid Code Status- Full DVT prophylaxis- lovenox SQ Diet- full liquid Code Status- Full DVT prophylaxis- lovenox SQ
--- NOTE | 2016-10-09 11:52 | Cons- Gastroenterology ---
General Information and HPI Consulting Request Date of Consult: 10/09/16 Requested By: IVAN STOVALL MD Reason for Consult: Intractable nausea and vomiting. Abdominal pain. Source of Information: patient, old records Exam Limitations: no limitations History of Present Illness: Ms. Marquez is a 61 year old female with multiple medical problems who presented to [facility] yesterday afternoon with complaints of persistent nausea and vomiting she has been having for the past several months beginning in May of this year when she saw me as an outpatient. At the time of her office visit she reported improvement in her symptoms with a PPI. She underwent an EGD for her symptoms in July which was grossly normal and it was recommended she continue her PPI as needed at that time. Since the endoscopy she has been doing reasonably well, however she has had periodic bilious nausea and vomiting that has been worse over the past several days. She is without any hematemesis and other than soreness from the retching she is without overt abdominal pain with eating. She also denies any burning epigastric pain, heartburn, or dysphagia. On arrival to the emergency room she was hemodynamically stable and afebrile. She was given antiemetics and she was admitted to the medical service for further management. Since being admitted she has not had any further vomiting and some of her medications are being adjusted as it is felt that some of her vomiting may be secondary to her psychiatric medications. Allergies/Medications Allergies: Coded Allergies: NSAIDS (Non-Steroidal Anti-Inflamma (Intermediate, GASTRIC ISSUES 07/18/15) Home Med List: Alprazolam (Xanax) 1 MG TABLET 1 TAB PO TID ANXIETY (Reported) Amitriptyline HCl 25 MG TABLET 25 MG PO DAILY ESOPHAGEAL DYSMOTILITY .. Gabapentin 300 MG CAPSULE 1 CAP PO QHS NERVE PAIN/SLEEP (Reported) Metoclopramide HCl 10 MG TABLET 10 MG PO Q6 PRN NAUSEA .. Multivitamin (Multi-Day Vitamins) 1 EACH TABLET 1 TAB PO DAILY SUPPLEMENT ( Reported) Pantoprazole Sodium (Protonix) 40 MG TABLET.DR 1 TAB PO DAILY gerd Topiramate 25 MG TABLET 1 TAB PO AT BEDTIME Headache .. Current Medications: Current Medications Sig/Mike Start time Last Medication Dose Route Stop Time Status Admin Acetaminophen 650 MG Q6P PRN 10/08 1730 AC 10/09 PO 0850 Alprazolam 1 MG Q8 10/08 2200 DC PO 10/15 2159 Alprazolam 1 MG 1400,1800,2200 10/08 2200 AC 10/09 PO 10/15 2159 0000 Alprazolam 1 MG .[1400, 1800, 2200] 10/08 2014 DC 10/08 PO 10/08 Alprazolam 0 .STK-MED ONE 10/08 2014 DC PO Dextrose/Water 1,000 ML .Q6H40M 10/08 1715 DC 10/09 IV 0000 Enoxaparin Sodium 0 .STK-MED ONE 10/08 1826 DC SC Enoxaparin Sodium 40 MG DAILY 10/08 1718 AC 10/09 SC 0848 Gabapentin 300 MG AT BEDTIME 10/08 2200 AC 10/08 PO 2359 Morphine Sulfate 2 MG Q4P PRN 10/08 1730 AC 10/09 IV 0615 Morphine Sulfate 0 .STK-MED ONE 10/08 1400 DC .ROUTE Morphine Sulfate 6 MG ONCE ONE 10/08 1330 DC 10/08 IV 10/08 1331 1408 Multivitamins 1 TAB DAILY 10/08 1725 AC 10/09 Therapeutic PO 0849 Nicotine 0 .STK-MED ONE 10/08 1826 DC TOP Nicotine 14 MG DAILY 10/08 1734 AC 10/09 TOP 0848 Ondansetron HCl 0 .STK-MED ONE 10/08 1738 DC .ROUTE Ondansetron HCl 4 MG ONCE ONE 10/08 1730 DC 10/08 IV 10/08 1731 1738 Oxycodone/ 1 TAB Q6P PRN 10/08 1730 AC Acetaminophen PO Pantoprazole Sodium 0 .STK-MED ONE 10/08 1826 DC IV Pantoprazole Sodium 40 MG DAILY 10/08 1729 AC 10/09 IV 0848 Prochlorperazine 10 MG Q6-PRN PRN 10/08 1730 AC IV Prochlorperazine 10 MG ONCE ONE 10/08 1330 DC 10/08 IV 10/08 1331 1408 Sodium Chloride 1,000 ML BOLUS ONE 10/08 1330 DC 10/08 IV 10/08 1529 1408 Past History Travel History Traveled to [place] past 21 day No Medical History Blood Transfusion Hx: No Neurological: NONE EENT: NONE Cardiovascular: NONE Respiratory: NONE Gastrointestinal: NONE Hepatic: NONE Renal: NONE Musculoskeletal: chronic back pain Psychiatric: anxiety, depression Endocrine: NONE Blood Disorders: NONE Cancer(s): NONE 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 Home Who Do You Live With? spouse Services at Home: None Smoking Status: Current Everyday Smoker ETOH Use: denies use Illicit Drug Use: denies illicit drug use Functional Ability ADLs Independent: dressing, eating, toileting, bathing. Ambulation: independent IADLs Independent: shopping, housework, finances, food prep, telephone, transportation , medication admin. Employment History Employment: Disability Review of Systems Review of Systems Constitutional: Denies: fever, malaise, weakness, unexplained weight loss. EENTM: Denies: no symptoms. Cardiovascular: Denies: no symptoms. Respiratory: Reports: cough. Denies: hemoptysis, short of breath. GI: Reports: see HPI. Genitourinary: Denies: no symptoms. Musculoskeletal: Reports: joint pain. Denies: joint swelling, muscle pain, muscle stiffness. Skin: Denies: no symptoms. Neurological/Psychological: Reports: depressed, other. Hematologic/Endocrine: Denies: no symptoms. Immunologic/Allergic: Denies: no symptoms. All Other Systems: Reviewed and Negative Exam & Diagnostic Data Vital Signs and I&O Vital Signs Date Time Temp Pulse Resp B/P B/P Pulse O2 O2 Flow FiO2 Mean Ox Delivery Rate 10/09 0850 4.0 10/09 0700 98.1 99 20 120/78 95 Room Air 10/08 2250 98.5 73 18 150/84 96 Room Air 10/08 1749 98.0 80 18 137/83 98 Room Air 10/08 1738 Room Air 10/08 1314 98.0 73 20 163/95 99 Room Air Intake & Output 10/09 1600 10/09 0400 10/08 1600 10/08 0400 10/07 1600 10/07 0400 Intake Total 0573 064 9311 Output Total Balance 6375 452 3274 Intake, IV 2876 482 3451 Intake, Oral 240 340 Patient 192 lb 192 lb Weight Physical Exam General Appearance: well developed/nourished, no apparent distress, alert, comfortable Head: atraumatic, normal appearance Eyes: Bilateral: normal appearance. Ears, Nose, Throat: normal pharynx, normal ENT inspection Neck: normal inspection, supple, full range of motion Respiratory: normal breath sounds, chest non-tender, no respiratory distress Cardiovascular: regular rate/rhythm Gastrointestinal: normal bowel sounds, soft, non-tender, no organomegaly Rectal: deferred Back: normal inspection Extremities: normal inspection, normal capillary refill Neurologic/Psych: no motor/sensory deficits, awake, alert, oriented x 3 Skin: intact, normal color, warm/dry Results Pertinent Lab Results: Laboratory Tests 10/09 10/08 0626 1349 Chemistry Sodium (137 - 145 mmol/L) 139 Potassium (3.5 - 5.1 mmol/L) 3.7 Chloride (98 - 107 mmol/L) 101 Carbon Dioxide (22 - 30 mmol/L) 28 Anion Gap (5 - 16) 10 BUN (7 - 17 mg/dL) 9 Creatinine (0.5 - 1.0 mg/dL) 0.7 Estimated GFR (>60 ml/min) > 60 BUN/Creatinine Ratio (7 - 25 %) 12.9 Hematology CBC w Diff NO MAN DIFF REQ WBC (4.8 - 10.8 /CUMM) 8.5 RBC (4.20 - 5.40 /CUMM) 4.10 L Hgb (12.0 - 16.0 G/DL) 12.7 Hct (37 - 47 %) 37.7 MCV (81.0 - 99.0 FL) 92.0 MCH (27.0 - 31.0 PG) 31.0 RDW (11.5 - 14.5 %) 14.1 Plt Count (130 - 400 /CUMM) 191 MPV (7.4 - 10.4 FL) 7.0 L Gran % (42.2 - 75.2 %) 64.9 Lymphocytes % (20.5 - 51.1 %) 23.8 Monocytes % (1.7 - 9.3 %) 10.0 H Eosinophils % (0 - 5 %) 1.0 Basophils % (0.0 - 2.0 %) 0.3 Absolute Granulocytes (1.4 - 6.5 /CUMM) 5.5 Absolute Lymphocytes (1.2 - 3.4 /CUMM) 2.0 Absolute Monocytes (0.10 - 0.60 /CUMM) 0.8 H Absolute Eosinophils (0.0 - 0.7 /CUMM) 0.1 Absolute Basophils (0.0 - 0.2 /CUMM) 0 PUBS MCHC (33.0 - 37.0 G/DL) 33.7 Urines Urinalysis LIGHT H Urine Color (YEL,AMB,STR) VERÓNICA Urine Clarity (CLEAR) HAZY H Urine pH (5.0 - 8.0) 6.0 Ur Specific [place] (1.001 - 1.035) 1.025 Urine Protein (NEG,<30 MG/DL) 100 H Urine Ketones (NEG) NEG Urine Nitrite (NEG) NEG Urine Bilirubin (NEG) NEG@ICTO Urine Urobilinogen (0.1 - 1.0 EU/dl) 0.2 Ur Leukocyte Esterase (NEG) NEG Ur Microscopic SEDIMENT EXAMINED Urine RBC (0 - 5 /HPF) 15-25 H Urine WBC (0 - 2 /HPF) 1-3 H Ur Epithelial Cells (NONE,FEW) MOD H Urine Crystals 3+ CA OX H Urine Bacteria (NEG/NONE) MOD H Hyaline Casts (0/LPF) RARE H Urine Mucus (FEW,NONE) FEW Urine Hemoglobin (NEG) MOD H Urine Glucose (N MG/DL) NEG 10/08 1322 Chemistry Sodium (137 - 145 mmol/L) 142 Potassium (3.5 - 5.1 mmol/L) 4.2 Chloride (98 - 107 mmol/L) 101 Carbon Dioxide (22 - 30 mmol/L) 32 H Anion Gap (5 - 16) 9 BUN (7 - 17 mg/dL) 20 H Creatinine (0.5 - 1.0 mg/dL) 0.7 Estimated GFR (>60 ml/min) > 60 BUN/Creatinine Ratio (7 - 25 %) 28.6 H Glucose (65 - 99 mg/dL) 129 H Lactic Acid (0.7 - 2.1 mmol/L) 1.4 Calcium (8.4 - 10.2 mg/dL) 9.7 Total Bilirubin (0.2 - 1.3 mg/dL) 0.6 AST (14 - 36 U/L) 23 ALT (9 - 52 U/L) 39 Alkaline Phosphatase (<127 U/L) 84 Total Protein (6.3 - 8.2 g/dL) 7.3 Albumin (3.5 - 5.0 g/dL) 4.3 Globulin (1.9 - 4.2 gm/dL) 3.0 Albumin/Globulin Ratio (1.1 - 2.2 %) 1.4 Lipase (23 - 300 U/L) 281 Hematology CBC w Diff NO MAN DIFF REQ WBC (4.8 - 10.8 /CUMM) 12.2 H RBC (4.20 - 5.40 /CUMM) 4.97 Hgb (12.0 - 16.0 G/DL) 15.2 Hct (37 - 47 %) 46.4 MCV (81.0 - 99.0 FL) 93.4 MCH (27.0 - 31.0 PG) 30.5 RDW (11.5 - 14.5 %) 14.1 Plt Count (130 - 400 /CUMM) 239 MPV (7.4 - 10.4 FL) 6.6 L Gran % (42.2 - 75.2 %) 88.8 H Lymphocytes % (20.5 - 51.1 %) 8.4 L Monocytes % (1.7 - 9.3 %) 2.4 Eosinophils % (0 - 5 %) 0 Basophils % (0.0 - 2.0 %) 0.4 Absolute Granulocytes (1.4 - 6.5 /CUMM) 10.9 H Absolute Lymphocytes (1.2 - 3.4 /CUMM) 1.0 L Absolute Monocytes (0.10 - 0.60 /CUMM) 0.3 Absolute Eosinophils (0.0 - 0.7 /CUMM) 0 Absolute Basophils (0.0 - 0.2 /CUMM) 0.1 PUBS MCHC (33.0 - 37.0 G/DL) 32.7 L Imaging/Other Studies: Findings: Esophagus: The esophageal mucosa was grossly normal in appearance and there was a normal-appearing Z line at 40 cm from the incisors. Stomach: The gastric mucosa was grossly normal in appearance. There were no ulcers, erosions, or masses appreciated. Distention and peristalsis of the stomach appeared normal. Retroflexed views were normal and did not reveal a significant hiatal hernia. Random biopsies were obtained from the antrum and the body of the stomach with cold biopsy forceps and were sent to pathology for further evaluation. Duodenum: The duodenal bulb, sweep, and folds were grossly normal in appearance. Random biopsies were obtained from the second portion of the duodenum and were sent to pathology for further evaluation. Impression: 1. Grossly normal upper endoscopy status post random biopsies of the small bowel and stomach.08/13: A. SMALL BOWEL BIOPSY: MILD CONGESTION. NEGATIVE FOR EVIDENCE OF MALIGNANCY. B. GASTRIC ANTRUM BIOPSY: MILD TO MODERATE CHRONIC INFLAMMATION. GIEMSA STAIN IS NEGATIVE FOR HELICOBACTER-TYPE STRUCTURES. NEGATIVE FOR EVIDENCE OF MALIGNANCY. C. GASTRIC BODY BIOPSY: MILD CONGESTION. GIEMSA STAIN IS NEGATIVE FOR HELICOBACTER-TYPE STRUCTURES. NEGATIVE FOR EVIDENCE OF MALIGNANCY. SERVICE DATE: 10/08/16 EXAM TYPE: US - US-LIMITED ABDOMEN EXAMINATION: US ABDOMEN LIMITED CLINICAL INFORMATION: Right upper quadrant abdominal pain. COMPARISON: CT abdomen and pelvis 05/08/2016. TECHNIQUE: Real-time imaging of the right upper quadrant abdominal viscera. FINDINGS: PANCREAS: The visualized portions of the pancreas appear unremarkable. The distal pancreatic body and tail are obscured by overlying bowel gas. LIVER: Unremarkable. The liver demonstrates normal size, contour and echogenicity. No focal lesion or intrahepatic biliary duct dilatation. GALLBLADDER: Unremarkable. The gallbladder is physiologically distended without evidence of stones, sludge, polyps, wall thickening or pericholecystic fluid. COMMON BILE DUCT: Normal in caliber measuring 0.5 cm in diameter. RIGHT KIDNEY: Unremarkable. No hydronephrosis. No renal calculi or focal parenchymal lesions. The kidney measures 9.5 cm in maximum dimension. FREE FLUID: None. IMPRESSION: Unremarkable right upper quadrant abdominal ultrasound. No cholelithiasis or secondary signs of acute cholecystitis. Assessment/Plan Assessment/Recommendations: Assessment: Ms. Marquez is a 61-year-old female with bipolar disorder who has been having intermittent nausea and vomiting for the past 6 months of unclear etiology. She underwent a negative endoscopy in July for her symptoms and at the time of her office visit and at the time of the endoscopy she reported improvement with the PPI so it was presumed her symptoms were secondary to GERD, however she is without typical reflux symptoms and has apparently had persistent symptoms in spite of continuing to take the PPI. It is possible that some of her symptoms may be secondary to side effects from her medications and time will tell if this is the case as further adjustments are made. Other potential etiologies of her vomiting could be cyclical vomiting syndrome, gastroparesis, or central causes of her diarrhea are possible, but she has had a negative, albeit limited, MRI. Her LFTs are also unremarkable, her ultrasound was negative for gallstones and as she is without any symptoms of biliary colic to suggest a biliary etiology of her vomiting. It is also possible some of her symptoms may be somewhat exaggerated as she hasn't had any significant vomiting since being admitted, doesn't appear dehydrated on physical exam, has relativley normal electrolytes, and no significant interventions have been undertaken. Recommendations; 1. Advance diet as tolerated. 2. Continue to IV PPI with a plan to change to oral dosing when she is tolerating a full diet. 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 4. Adjustments to her psychiatric medications as per her primary care team. 5. Follow electrolytes and replete as needed. 6. Check a TSH if one has not been checked recently. I will continue to follow this patient and make further recommendations based on her clinical course and results of further diagnostic testing. Problem List: 1. Vomiting 2. Abdominal pain 3. Epigastric pain Copies To: JOSEPH LEE,BERTHA Consult Acknowledgment - Thank you for your consult request.
--- NOTE | 2016-10-09 12:37 | Cons- Neurology ---
General Information and HPI Consulting Request Date of Consult: 10/09/16 Requested By: IVAN STOVALL MD History of Present Illness: 61-year-old female with history of bipolar disorder and chronic nausea and vomiting, admitted for heightened GI complaints. She also has a history of chronic headaches, more frequent over the past several months for which neurology has been asked to assess. The patient states that she has a long history of intermittent "migraine". Over the past several months she has had a headache on a daily basis. She reports no visual disturbance or associated appendicular symptomatology. There are no obvious triggers however she questions as to whether the recent addition of Abilify has exacerbated her headaches. MRI of the brain performed yesterday showed no significant abnormalities. Allergies/Medications Allergies: Coded Allergies: NSAIDS (Non-Steroidal Anti-Inflamma (Intermediate, GASTRIC ISSUES 07/18/15) Home Med List: Alprazolam (Xanax) 1 MG TABLET 1 TAB PO TID ANXIETY (Reported) Aripiprazole 5 MG TABLET 1 TAB PO DAILY MENTAL HEALTH (Reported) Cyclobenzaprine HCl 5 MG TABLET 1 TAB PO TID PRN MUSCLE RELAXER (Reported) Doxepin HCl 25 MG CAPSULE 1 CAP PO QHS HEADACHE (Reported) Gabapentin 300 MG CAPSULE 1 CAP PO QHS NERVE PAIN/SLEEP (Reported) Metoclopramide HCl (Reglan) 10 MG TABLET 1 TAB PO 4 TIMES/DAY PRN nausea Multivitamin (Multi-Day Vitamins) 1 EACH TABLET 1 TAB PO DAILY SUPPLEMENT ( Reported) Oxycodone HCl/Acetaminophen (Oxycodone-Acetaminophen 5-325) 5 MG-325 MG TABLET 1 TAB PO 4 TIMES/DAY PAIN (Reported) Pantoprazole Sodium (Protonix) 40 MG TABLET.DR 1 TAB PO DAILY gerd Promethazine HCl 25 MG TABLET 1 TAB PO Q6P PRN NAUSEA/VOMITING Review of Systems Review of Systems: Notable for frequent headaches, nausea and vomiting. She reports no recent trauma, fever, diplopia, dysarthria, dysphagia, cough, vertigo, joint inflammation or bleeding disturbance Past History Travel History Traveled to [place] past 21 day No Medical History Blood Transfusion Hx: No Neurological: NONE EENT: NONE Cardiovascular: NONE Respiratory: NONE Gastrointestinal: NONE Hepatic: NONE Renal: NONE Musculoskeletal: chronic back pain Psychiatric: anxiety, depression Endocrine: NONE Blood Disorders: NONE Cancer(s): NONE OPERATIONS/DISPATCH/Reproductive: NONE Surgical History Surgical History: non-contributory Psychosocial History Where Do You Live? Home Who Do You Live With? spouse Services at Home: None Smoking Status: Current Everyday Smoker ETOH Use: denies use Illicit Drug Use: denies illicit drug use Functional Ability ADLs Independent: dressing, eating, toileting, bathing. Ambulation: independent IADLs Independent: shopping, housework, finances, food prep, telephone, transportation , medication admin. Employment History Employment: Disability Exam & Diagnostic Data Vital Signs and I&O Vital Signs Date Time Temp Pulse Resp B/P B/P Pulse O2 O2 Flow FiO2 Mean Ox Delivery Rate 10/09 0850 4.0 10/09 0700 98.1 99 20 120/78 95 Room Air 10/08 2250 98.5 73 18 150/84 96 Room Air 10/08 1749 98.0 80 18 137/83 98 Room Air 10/08 1738 Room Air 10/08 1314 98.0 73 20 163/95 99 Room Air Intake & Output 10/09 1600 10/09 0800 10/09 0000 Intake Total 1440 490 Output Total Balance 1440 490 Intake, IV 1200 150 Intake, Oral 240 340 Patient 192 lb Weight Pleasant middle-aged female in no acute distress. Higher cortical function was grossly intact. Speech was fluent. Head was normocephalic and atraumatic. Pupils were equal and reactive. Extraocular movements were full. There was no nystagmus. Facial strength and sensation was intact. Hearing was grossly normal. Tongue was midline. Dentition was poor. The motor examination showed no drift of the upper extremities. There was no focal or lateralizing weakness. Deep tendon reflexes were symmetric. Plantar responses were flexor. There was no ataxia on [id number] testing. Joint position sense was intact. The patient's gait was narrow based and steady. Assessment/Plan Assessment: #1 chronic daily headache #2 bipolar disorder The neurological examination was normal as was her MRI. There are no red flags which would suggest a serious, underlying intracranial process. Recommendations: Due to her headache frequency, we would not endorse abortive therapies and would avoid narcotic analgesics. Alternatively, I would recommend a prophylactic medication such as topiramate. I would begin at 25 mg daily at bedtime increased by 25 mg every week to an initial target dose of 50 mg twice a day. We would be happy to follow her in the office setting and adjust medications accordingly. No further neurodiagnostic studies are currently anticipated. Please feel free to call with any further questions. Consult Acknowledgment - Thank you for your consult request.
--- NOTE | 2016-10-09 13:34 | Cons- Psychiatry ---
Psychiatric Consult Date of Consult: 10/09/16 Reason for Consult: "Consideration for alternative medication to Abilify" Entered by Dr. Trent Andres attending History of Present Illness: Identifying Info: 61-year-old female presents to [facility] emergency department on 10/08/16 with persistent nausea and vomiting. The patient has a known history of generalized anxiety disorder and is treated by [facility] outpatient psychiatric services. CC: "Much better" HPI: Patient reports she's had increasing nausea with vomiting 3 days. She attributes this to a combination of Imitrex and Abilify. She states since discontinuing Abilify yesterday evening she feels significantly better. The patient's outpatient prescriber William Moise APRN 1 month ago started the patient Abilify for increasing anxiety. Of note the patient has refused antidepressant medication due to fears of weight gain. She had previously had a positive response to Abilify. She's been experiencing increasing distress lately because her is a convicted sex offender. She believes she is innocent but he is on the registry. Visits with her 11 grandchildren and to public places have been extremely limited due to his legal status. He is her primary source of transportation. At present the patient would like to continue her gabapentin and Xanax and would not like to start a new psychotropic briefly discussed other treatment options that would potentially be useful to her including lamotrigine and perphenazine. PMH: Please see the H&P for a complete listing Chronic back pain Past Psych History: -[facility]patient [facility] William Moise APRN -Inpatient None Family Psych History: Did not obtain Substance History Denies Family Substance History: Denies Social: . Unemployed. Resides with . Abuse/Trauma: Did not assess Current Home Psychotropic Medications: Xanax 1mg TID Gabapentin 300mg TID Abilify 5mg daily Current Hospital Psychotropic Medications: Med Alprazolam 1 MG PO 1400,1800,2200 10/08/16 2200 Gabapentin 300 MG PO AT BEDTIME 10/08/16 2200 Allergies: Coded Allergies: NSAIDS (Non-Steroidal Anti-Inflamma (Intermediate, GASTRIC ISSUES 07/18/15) Current Medications: Current Medications Sig/Mike Start time Last Medication Dose Route Stop Time Status Admin Acetaminophen 650 MG Q6P PRN 10/08 1730 AC 10/09 PO 0850 Alprazolam 1 MG Q8 10/08 2200 DC PO 10/15 2159 Alprazolam 1 MG 1400,1800,2200 10/08 2200 AC 10/09 PO 10/15 2159 0000 Alprazolam 1 MG .[1400, 1800, 2200] 10/08 2014 DC 10/08 PO 10/08 Alprazolam 0 .STK-MED ONE 10/08 2014 DC PO Dextrose/Water 1,000 ML .Q6H40M 10/08 1715 DC 10/09 IV 0000 Enoxaparin Sodium 0 .STK-MED ONE 10/08 1826 DC SC Enoxaparin Sodium 40 MG DAILY 10/08 1718 AC 10/09 SC 0848 Gabapentin 300 MG AT BEDTIME 10/08 2200 AC 10/08 PO 2359 Morphine Sulfate 2 MG Q4P PRN 10/08 1730 DC 10/09 IV 0615 Morphine Sulfate 0 .STK-MED ONE 10/08 1400 DC .ROUTE Multivitamins 1 TAB DAILY 10/08 1725 AC 10/09 Therapeutic PO 0849 Nicotine 0 .STK-MED ONE 10/08 1826 DC TOP Nicotine 14 MG DAILY 10/08 1734 AC 10/09 TOP 0848 Ondansetron HCl 0 .STK-MED ONE 10/08 1738 DC .ROUTE Ondansetron HCl 4 MG ONCE ONE 10/08 1730 DC 10/08 IV 10/08 1731 1738 Oxycodone/ 1 TAB Q6P PRN 10/08 1730 AC Acetaminophen PO Pantoprazole Sodium 0 .STK-MED ONE 10/08 1826 DC IV Pantoprazole Sodium 40 MG DAILY 10/08 1729 AC 10/09 IV 0848 Prochlorperazine 10 MG Q6-PRN PRN 10/08 1730 AC IV Sodium Chloride 1,000 ML BOLUS ONE 10/08 1330 DC 10/08 IV 10/08 1529 1408 Topiramate 25 MG AT BEDTIME 10/09 2200 UNVr PO Past History Past Medical History Neurological: NONE EENT: NONE Cardiovascular: NONE Respiratory: NONE Gastrointestinal: NONE Hepatic: NONE Renal: NONE Musculoskeletal: chronic back pain Psychiatric: anxiety, depression Endocrine: NONE Blood Disorders: NONE Cancer(s): NONE GOVERNMENT AFFAIRS SPECIALIST/Reproductive: NONE Past Surgical History Surgical History: non-contributory Psychosocial History Strengths/Capabilities: Able to express needs Physical Limitations (Interventions): Back pain Psychiatric Treatment History Psych Treatment Psychiatric Treatment Yes (as above) Substance Use/Abuse History Drug Use/Abuse Substances Used/Abused No Substance Abuse Treatment Substance Abuse Treatment Past Substance Abuse [place] No Assessment/Plan Mental Status Mental Status Exam: Mental Status Exam Presentation/Appearance: Cooperative with evaluation. [facility] garb. Orientation: x4 Sensorium: Awake and alert Eye contact: Appropriate Affect: Full range, congruent Mood: "Much better" Depression: Denies Anxiety: Endorses Thought Content: - Denies SI/HI, AH/VH, PI. States and also believes they will not kill themselves. - Denies Hopeless/Helpless Thoughts Thought Process: Linear Associations: Appropriate Speech: WNL Judgment: Intact Insight: Intact Cognition: Memory: Grossly intact Attention/Concentration: Grossly intact Fund of Knowledge: Adequate Abstractions: Did not complete MMSE: Did not complete Brief ROS Gait: Unimpaired Sleep: Adequate Appetite: Improved Energy: Adequate IADLs/ADLs: Independent Lab Results: Laboratory Tests 10/09/16 0626: Anion Gap 10, Estimated GFR > 60, BUN/Creatinine Ratio 12.9, CBC w Diff NO MAN DIFF REQ, RBC 4.10 L, MCV 92.0, MCH 31.0, RDW 14.1, MPV 7.0 L, Gran % 64.9, Lymphocytes % 23.8, Monocytes % 10.0 H, Eosinophils % 1.0, Basophils % 0.3, Absolute Granulocytes 5.5, Absolute Lymphocytes 2.0, Absolute Monocytes 0.8 H, Absolute Eosinophils 0.1, Absolute Basophils 0, PUBS MCHC 33.7 10/08/16 1349: Urinalysis LIGHT H, Urine Color VERÓNICA, Urine Clarity HAZY H, Urine pH 6.0, Ur Specific Colbert 1.025, Urine Protein 100 H, Urine Ketones NEG, Urine Nitrite NEG, Urine Bilirubin NEG@ICTO, Urine Urobilinogen 0.2, Ur Leukocyte Esterase NEG , Ur Microscopic SEDIMENT EXAMINED, Urine RBC 15-25 H, Urine WBC 1-3 H, Ur Epithelial Cells MOD H, Urine Crystals 3+ CA OX H, Urine Bacteria MOD H, Hyaline Casts RARE H, Urine Mucus FEW, Urine Hemoglobin MOD H, Urine Glucose NEG 10/08/16 1322: Anion Gap 9, Estimated GFR > 60, BUN/Creatinine Ratio 28.6 H, Glucose 129 H, Lactic Acid 1.4, Calcium 9.7, Total Bilirubin 0.6, AST 23, ALT 39, Alkaline Phosphatase 84, Total Protein 7.3, Albumin 4.3, Globulin 3.0, Albumin/Globulin Ratio 1.4, Lipase 281, CBC w Diff NO MAN DIFF REQ, RBC 4.97, MCV 93.4, MCH 30.5, RDW 14.1, MPV 6.6 L, Gran % 88.8 H, Lymphocytes % 8.4 L, Monocytes % 2.4, Eosinophils % 0, Basophils % 0.4, Absolute Granulocytes 10.9 H, Absolute Lymphocytes 1.0 L, Absolute Monocytes 0.3, Absolute Eosinophils 0, Absolute Basophils 0.1, PUBS MCHC 32.7 L Diffential Diagnosis: Generalized anxiety disorder Impression: 61-year-old female presents with nausea and vomiting which she believes could be attributable to combination of her Abilify and Imitrex. Of note, nausea became better with discontinuation of Abilify. She states at present she would not like to try any other psychotropic medication but would like to discuss it with her outpatient provider at next visit in November. She would not like a sooner appointment. Provisional Treatment Plan: 1. Patient to follow-up at [facility] outpatient psychiatric services. Please include the following discharge instructions "Next appointment at outpaitent psychiatry on 12/05/16 at 3:00 PM, if you decide you would like a sooner appointment please call [phone] to reschedule." 2. Discontinue Abilify continue other psychotropic medications. Thank you for including psychiatry in this case we will only follow on an as- needed basis. A total of 60 minutes was spent with the patient with more than 50% of the time spent in counseling and/or coordination of care.
--- NOTE | 2016-10-09 14:01 | Patient Discharge Instructions ---
See Addendum Discharge Instructions General Discharge Information You were seen/treated for: Interactible chronic headache Special Instructions: 1) increase Topiramate by 25 mg per week to reach the initial dose of 50 mg twice daily. 2) please follow up with Dr. Newell within 1-2 weeks of discharge. 3) avoide taking higher doses of Topiramate 4) please follow up with your PCP within 7 days of discharge 5) Next appointment at [facility] on 12/05/16 at 3:00 PM, if you decide you would like a sooner appointment please call [phone] to reschedule. 5) please follow up with your headache and pain specialist at [facility] within 2 weeks. Please discuss the change we have made to your medication regimen. Diet Recommended Diet: Heart Healthy Activity Activity Self Limited: Yes Acute Coronary Syndrome Inclusion Criteria At DC or during hospital stay patient has or had the following: ACS DIAGNOSIS No Discharge Core Measures Meds if any: Prescribed or Continued at Discharge KEELY/ARB if EF <40% No Aspirin Yes Statin Yes Meds if any: NOT Prescribed or Continued at Discharge Congestive Heart Failure Inclusion Criteria At DC or during hospital stay patient has or had the following: CHF DIAGNOSIS No Discharge Core Measures Meds if any: Prescribed or Continued at Discharge KEELY/ARB for EF <40% No Meds if any: NOT Prescribed or Continued at Discharge Cerebrovascular accident Inclusion Criteria At DC or during hospital stay patient has or had the following: CVA/TIA Diagnosis No Discharge Core Measures Meds if any: Prescribed or Continued at Discharge Antithrombotic No Meds if any: NOT Prescribed or Continued at Discharge Venous thromboembolism Inclusion Criteria VTE Diagnosis No VTE Type NONE VTE Confirmed by (Test) NONE Discharge Core Measures - Per Current guidelines, there needs to be overlap - treatment for the first 5 days of Warfarin therapy. - If discharged on Warfarin prior to 5 days of - overlap therapy, the patient will need to be - assessed for post discharge needs including - *Post discharge parental anticoagulation - *Warfarin and/or parental anticoagulation education - *Follow up date to check INR post discharge At least 5 days overlap therapy as Inpatient No Meds if any: Prescribed or Continued at Discharge Warfarin No Note: Overlap Therapy is Warfarin and Anticoagulant Meds if any: NOT Prescribed or Continued at Discharge
[2016-10-09] MEDS ORDERED: TOPAMAX200 M1 PO (14:07)
[2016-10-09 14:52] VITALS: BP 144/80
--- NOTE | 2016-10-09 15:16 | Event Note ---
Event Note Event Note: Notified by RN that patient had episode of large emesis after regular diet for lunch. Will revert back to full liquid diet for dinner and continue with antiemetics PRN for nausea.
[2016-10-09 22:24] VITALS: BP 138/90
--- NOTE | 2016-10-10 01:53 | NUR ---
LATE ENTRY 10/09/16 AT 2100, TYLENOL 1000MG IV WAS ADMINISTERED. THIS RN WAS UNABLE TO MANUALLY RECORD THIS MEDICATION ADMINISTRATION IN THE EMAR. THE MESSAGE WAS "INTERFACE ROBOT-RX IS EDITING OFIRMER 1000MG"
[2016-10-10 06:00] VITALS: BP 120/78
--- NOTE | 2016-10-10 06:58 | PN- Housestaff ---
SERGEY LEE,AZIZA 10/10/16 0657: Subjective Follow-up For: Intaractable Nausea and vomiting Subjective: I saw and examined the patient today morning She reports pain and soreness in her epigastric region. She vomited all her dinner (grilled sandwitch), for several times. Switched to full liquid diet. No fevers, chills. Started on reglan overnight, had her breakfast this morning, vomited again. Started on clear liquid diet. Review of Systems Constitutional: Reports: see HPI. Objective Last 24 Hrs of Vital Signs/I&O Vital Signs Date Time Temp Pulse Resp B/P B/P Pulse O2 O2 Flow FiO2 Mean Ox Delivery Rate 10/09 2224 98.9 75 19 138/90 92 Room Air 10/09 1452 97.7 70 18 144/80 98 Room Air 10/09 0850 4.0 10/09 0700 98.1 99 20 120/78 95 Room Air Intake & Output 10/10 0800 10/10 0000 10/09 1600 Intake Total 100 540 240 Output Total Balance 100 540 240 Intake, IV 100 Intake, Oral 540 240 Number 1 Bowel Movements Patient 87.09 kg Weight Physical Exam General Appearance: Alert, Oriented X3, Cooperative Skin: No Rashes, No Breakdown HEENT: Atraumatic, PERRLA, EOMI Neck: Supple Cardiovascular: Normal S1, Normal S2 Lungs: Clear to Auscultation, Normal Air Movement Abdomen: Normal Bowel Sounds, No Tenderness, feels sore to touch Neurological: Normal Gait, Normal Speech, Strength at 5/5 X4 Ext, Normal Tone Extremities: No Clubbing, No Cyanosis, No Edema Vascular: Normal Pulses Current Medications: Current Medications Sig/Mike Start time Last Medication Dose Route Stop Time Status Admin Acetaminophen 1,000 MG ONCE ONE 10/09 2030 DC N/A 1 UNIT IV 10/10 2043 Acetaminophen 650 MG .STK-MED ONE 10/09 0842 DC PO 10/09 0843 Acetaminophen 650 MG Q6P PRN 10/08 1730 AC 10/09 PO 0850 Alprazolam 1 MG 1400,1800,2200 10/08 2200 AC 10/09 PO 10/15 2158 2116 Dextrose/Water 1,000 ML .Q6H40M 10/08 1715 DC 10/09 IV 0000 Enoxaparin Sodium 40 MG DAILY 10/08 1718 AC 10/09 SC 0848 Gabapentin 300 MG AT BEDTIME 10/08 2200 AC 10/09 PO 211 Metoclopramide HCl 10 MG Q6P PRN 10/09 2045 AC 10/09 IV 2055 Morphine Sulfate 2 MG Q4P PRN 10/08 1730 DC 10/09 IV 0615 Multivitamins 1 TAB DAILY 10/08 1725 AC 10/09 Therapeutic PO 0849 Nicotine 14 MG DAILY 10/08 1734 AC 10/09 TOP 0848 Oxycodone/ 1 TAB Q6P PRN 10/08 1730 AC Acetaminophen PO Pantoprazole Sodium 40 MG DAILY 10/08 1729 AC 10/09 IV 0848 Patient Medication 1 ED .STK-MED ONE 10/09 1414 DC Teaching ED 10/09 1415 Prochlorperazine 10 MG Q6-PRN PRN 10/08 1730 AC 10/10 IV 0258 Topiramate 25 MG AT BEDTIME 10/09 2200 AC 10/09 PO 2115 Assessment/Plan Assessment: Ms. Marquez is a pleasant 61 year old female with PMH bipolar disorder, anxiety and low back pain who presents with chief complaint of nausea, vomiting, epigastric discomfort and headache. Karen reports that every morning she experiences a severe headache that wakes her up from sleep with subsequent nausea followed by 5-10 episodes of persistent vomiting. Associated symptoms include dizziness, impaired balance and 2-3 episodes of diarrhea daily for about 2 months. In the ED: Vital signs showed T 98.0, HR 73, RR 20, BP 163/95 and O2 saturation 99% on room air. Labs were significant for WBC 12.2 with 88.8% granulocytes, H&H 15.2/46.4, Plt 239, and unremarkable BEP except for slightly elevated BUN to 20. Lactic acid 1.4, AST/ALT within normal limits, lipase 281. Urine shows epithelial cells with high protein, 15-25 RBCs, 103 WBCs, 3+ Ca OX crystals, rare hyaline casts and moderate bacteria. Patient is admitted to the general medicine floor and the following is the management: 1. Nausea, vomiting, diarrhea * Differential includes polypharmacy, gastritis, dyspepsia, Psychiatric * Elevated intracranial pressure unlikely in setting of unremarkable head MRI * Restarted on D51/2NS @ 75ml/hr as patient is not tolerating any food - started on clear liquid diet. Reassess and advance as tolerated. * IV prochlorperazine 10 mg and IV reglan Q6PRN nausea vomiting. * IV protonix daily * Hold both imitrex and abilify as both are reported to cause nausea and vomiting * If patient has diarrhea, send for culture * GI consult placed, follow up recommendations 2. Intractable headache * Neuro exam nonfocal and without obvious deficit * Head MRI negative for acute pathology * Abilify also noted to have side effect of headaches, hold for now * IV morphine PRN severe pain, percocet PRN moderate pain, PO tylenol mild pain * Neuro consult placed for today, follow up recommendations (discuss medicaiton plan for headaches other than imitrex) 3. Mental health issues * Hold abilify due to possible contribution to nausea & vomiting * Psychiatric consulted - appreciate their recommendations 4. Tobacco use * Tobacco cessation counseling provided * Nicotine patch 14 mg topical daily FULL CODE DVTP: SC Lovenox Diet: NPO Mild to severe pain pathway Problem List: 1. Epigastric pain 2. Emesis, persistent 3. Vomiting Pain Ratin Pain Location: headache Pain Goal: Pain 4 or less Pain Plan: tylenol prn Tomorrow's Labs & Rationales: lfts to trend WILMAN LEE,IVAN 10/10/16 1138: Attending MD Review Statement Attending Statement Attending MD Statement: examined this patient, discuss w/resident/PA/SIGNAL HELPER, agreed w/resident/PA/SIGNAL HELPER, reviewed EMR data (avail), discussed with nursing, discussed with case mgmt, amended to note Attending Assessment/Plan: Patient seen and examined, not feeling well. She started to throw up again. After lunch yesterday she had a vomiting and could not keep anything down. She does not want to eat anything today. Vital Signs Date Time Temp Pulse Resp B/P B/P Pulse O2 O2 Flow FiO2 Mean Ox Delivery Rate 10/10 0600 99.6 68 20 120/78 92 Room Air 10/09 2224 98.9 75 19 138/90 92 Room Air 10/09 1452 97.7 70 18 144/80 98 Room Air on exam; aox3, nad. cv; s1, s2, rrr resp; s1, s2, rrr abd; soft, nt, bs+ ext; no edema. no labs. A/P; 61-year-old female with past medical history significant for depression, bipolar, depression, history of chronic nausea and vomiting is admitted with acute exacerbation of her nausea and vomiting which was thought to be related to polypharmacy. MRI brain was a degraded study therefore not a good study. Appreciate input from all the consultants. Per GI, no specific recommendations. Continue the patient on Reglan and Compazine when necessary. Switch back to clear Liquid today. Advance only if she tolerates. Topamax was started per neurology recommendations. Patient can take IV Tylenol for headaches. DVt px; lovenox. neurology recommendations. Patient can take IV Tylenol for headaches. DVt px; lovenox.
--- NOTE | 2016-10-10 07:17 | PN- Student ---
Subjective Subjective: This morning Mrs. Marquez reports a very slight headache that has greatly improved from yesterday. She did report that she had an episode of vomiting yesterday after eating a grilled cheese sandwich for lunch, she states that she hasnt been able to hold down fluids or food since. She was able to get a good nights sleep and has been tolerating her new medications well. She reports that her urine color is back to normal and that she was able to have a bowel movement yesterday that was normal in color and consistency. She denies any fever, chills, breathing difficulty, chest pain, palpitations, dysuria, or hematuria. Objective Objective: Vital Signs Date Time Temp Pulse Resp B/P B/P Pulse O2 O2 Flow FiO2 Mean Ox Delivery Rate 10/09 2224 98.9 75 19 138/90 92 Room Air 10/09 1452 97.7 70 18 144/80 98 Room Air 10/09 0850 4.0 Intake & Output 10/10 0800 10/10 0000 10/09 1600 Intake Total 100 540 240 Output Total Balance 100 540 240 Intake, IV 100 Intake, Oral 540 240 Number 1 Bowel Movements Patient 192 lb Weight PE: General- AAO x 3, cooperative, well nourished, NAD HEENT- atraumatic, PERRLA, membranes moist and pink Neck- supple, no lymphadenopathy or thyromegaly, trachea is midline CV- S1 and S2 heard, regular rate and rhythm, no murmurs or rubs appreciated, distal pulses present and full Respiratory- equal chest rise bilaterally, vesicular breath sounds heard in all lung lisa. No distress. Abdomen- bowel sounds heard, soft with slight epigastric tenderness on palpation. Skin- warm and well perfused, no lesions noted on exam. Ext- 5/5 strength x all 4 extremities, motor and sensations grossly intact Results Results: Laboratory Tests 10/09/16 0626: Anion Gap 10, Estimated GFR > 60, BUN/Creatinine Ratio 12.9, CBC w Diff NO MAN DIFF REQ, RBC 4.10 L, MCV 92.0, MCH 31.0, RDW 14.1, MPV 7.0 L, Gran % 64.9, Lymphocytes % 23.8, Monocytes % 10.0 H, Eosinophils % 1.0, Basophils % 0.3, Absolute Granulocytes 5.5, Absolute Lymphocytes 2.0, Absolute Monocytes 0.8 H, Absolute Eosinophils 0.1, Absolute Basophils 0, PUBS MCHC 33.7 10/08/16 1349: Urinalysis LIGHT H, Urine Color VERÓNICA, Urine Clarity HAZY H, Urine pH 6.0, Ur Specific Belcher 1.025, Urine Protein 100 H, Urine Ketones NEG, Urine Nitrite NEG, Urine Bilirubin NEG@ICTO, Urine Urobilinogen 0.2, Ur Leukocyte Esterase NEG , Ur Microscopic SEDIMENT EXAMINED, Urine RBC 15-25 H, Urine WBC 1-3 H, Ur Epithelial Cells MOD H, Urine Crystals 3+ CA OX H, Urine Bacteria MOD H, Hyaline Casts RARE H, Urine Mucus FEW, Urine Hemoglobin MOD H, Urine Glucose NEG 10/08/16 1322: Anion Gap 9, Estimated GFR > 60, BUN/Creatinine Ratio 28.6 H, Glucose 129 H, Lactic Acid 1.4, Calcium 9.7, Total Bilirubin 0.6, AST 23, ALT 39, Alkaline Phosphatase 84, Total Protein 7.3, Albumin 4.3, Globulin 3.0, Albumin/Globulin Ratio 1.4, Lipase 281, CBC w Diff NO MAN DIFF REQ, RBC 4.97, MCV 93.4, MCH 30.5, RDW 14.1, MPV 6.6 L, Gran % 88.8 H, Lymphocytes % 8.4 L, Monocytes % 2.4, Eosinophils % 0, Basophils % 0.4, Absolute Granulocytes 10.9 H, Absolute Lymphocytes 1.0 L, Absolute Monocytes 0.3, Absolute Eosinophils 0, Absolute Basophils 0.1, PUBS MCHC 32.7 L Assessment/Plan Assessment: Mrs. Marquez is a 61 yo white F with a PMH of anxiety, bipolar disorder (on abilify), and chronic low back pain who presented to the ED on 10/08/16 with nausea, vomiting, epigastric pain, and headaches that have been occuring for the past 2 months. She also reported 2-3 episodes of non bloody stringy diarrhea per day for the last 1-2 months, however she has had none in the hospital. She described her symptoms as 8/10 abdominal pain on vomiting, and 7/10 for headaches. Her symptoms are worse in the morning typically with the headache causing her to wake up from sleep. she reports that morphine is the only thing that helps her headaches and that it also helps her abdominal pain. She saw Dr. Atkinson in july for the same symptoms, endoscopy was done which showed no cause of her symptoms. There are also complaints of balance issues (walking like she is drunk, as per friends), and dizziness without any falls. She denied any fever , chills, vision changes, dyspnea, chest pain, dysuria, weakness or numbness. Vitals on admission: temp- 98, HR- 73, RR- 20, BP- 163/95, SpO2- 99% on room air. Labs significant for WBC- 12.2, H/H- 15.2/46.4, Lactic acid- 1.4, T. bilirubin- 0.6, AST- 23, ALT-39, BUN- 20, Fiberglass Tube Molder- 0.7. EKG Results: NSR HR 67 bpm, QTC 423, AZ 112, no change from prior. US RUQ IMPRESSION: Unremarkable right upper quadrant abdominal ultrasound. No cholelithiasis or secondary signs of acute cholecystitis. MRI of head IMPRESSION: Motion degraded study without evidence of acute brain ischemia. The caliber of the ventricular system appears normal. No convincing change from 08/15/[address] abdomen and pelvis (October 06, 2016): No acute abnormality CT scan abdomen and pelvis. Nodule right adrenal gland measuring 2 cm indeterminate on this postcontrast study. A CT adrenal study would be helpful for further assessment. Today patient's headache is greatly improved. Still having nausea and vomiting when attempting to eat or drink. She does not appear to be in distress or discomfort and does not have a fever or problems urinating or defecating. Following breakfast this morning she had 10 episodes of vomiting as well as some diarrhea. vitals today were temp- 98.9, HR-75, RR-19, BP-138/90, SpO2-92% on room air. No labs ordered today. Current Medications Sig/Mike Start time Last Medication Dose Route Stop Time Status Admin Acetaminophen 1,000 MG ONCE ONE 10/09 2030 DC 10/10 N/A 1 UNIT IV 10/10 2043 0823 Acetaminophen 650 MG Q6P PRN 10/08 1730 AC 10/09 PO 0850 Alprazolam 1 MG ONCE ONE 10/10 1045 DC PO 10/10 1046 Alprazolam 1 MG 1400,1800,2200 10/08 2200 AC 10/09 PO 10/159 2116 Enoxaparin Sodium 40 MG DAILY 10/08 1718 AC 10/10 SC 0817 Gabapentin 300 MG AT BEDTIME 10/08 2200 AC 10/09 PO 211 Metoclopramide HCl 10 MG Q6P PRN 10/09 2045 AC 10/09 IV 2055 Morphine Sulfate 2 MG Q4P PRN 10/08 1730 DC 10/09 IV 0615 Multivitamins 1 TAB DAILY 10/08 1725 AC 10/09 Therapeutic PO 0849 Nicotine 14 MG DAILY 10/08 1734 AC 10/10 TOP 0816 Oxycodone/ 1 TAB Q6P PRN 10/08 1730 AC Acetaminophen PO Pantoprazole Sodium 40 MG DAILY 10/08 1729 AC 10/10 IV 0816 Patient Medication 1 ED .STK-MED ONE 10/09 1414 AL Teaching ED 10/09 1415 Prochlorperazine 10 MG Q6-PRN PRN 10/08 1730 AC 10/10 IV 0258 Topiramate 25 MG AT BEDTIME 10/09 2200 AC 10/09 PO 2115 Plan: Patient admitted to general medicine floor for management. Problem list: 1. Nausea, vomiting, abdominal pain- -possible causes are drug side effects, elevated intracranial pressure although MRI was negative, GI pathology -Continue D5W at 150 cc/h, continue clear liquid diet as she is still vomiting, advance diet as tolerated -IV prochlorperazine 10 mg Q6 PRN and IV reglan 10mg Q6 PRN -IV protonix daily -discontinue both imitrex and abilify (both are reported to cause nausea and vomiting) -Culture stool if diarrhea -GI consult placed, recommendations below: -Advance diet as tolerated. -Continue IV PPI with a plan to change to oral dosing when she is full diet. -administer antiemetics as needed. -Adjust psychiatric medications as per her primary care team. -IV electrolytes and replete as needed. -Check a TSH if one has not been checked recently. 2. Headache- -Neuro exam on admission nonfocal and without obvious deficit, funduscopic exam only positive for cataracts, no papilledema noted. -Head MRI negative -Abilify noted, as above, to have side effect of headaches, hold for now -Discontinue IV morphine, PO tylenol for mild pain -Neuro consult placed recommendations below: - continue topiramate at 25 mg daily at bedtime increased by 25 mg every week to an initial target dose of 50 mg twice a day. Outpatient follow up on discharge and adjust medications accordingly. No further neurodiagnostic studies are currently anticipated. 3. Mental health issues- -discontinue abilify and continue other psychiatric medications, as per psych. -follow up with outpatient psychiatric services. Next appointment at [facility] on 12/05/16 at 3:00 PM 4. Tobacco use- -Tobacco cessation counseling provided -Nicotine patch 14 mg topical daily Diet- full liquid Code Status- Full DVT prophylaxis- lovenox SQ
[2016-10-10 13:59] VITALS: BP 162/94
--- NOTE | 2016-10-10 14:33 | NUR ---
PT HAS BEEN NAUSEATED/ VOMITTING THIS AM. SHE HAS HAD TEMPORARY RELIF AFTER REGLAN AND COMPAZINE, BUT CANNOT TOLERATE FOOD OR DRINK. SHE IS NOW REQUESTING IV ANTI-ANXIETY MEDS. MD ERVIN INFORMED. AWAITING NEW ORDERS.
[2016-10-10 22:40] VITALS: BP 136/82
[2016-10-11 05:57] VITALS: BP 138/82
--- NOTE | 2016-10-11 07:26 | PN- Housestaff ---
SUZE JAMES 10/11/16 0725: Subjective Follow-up For: Nausea vomiting and diarrhea Headache Anxiety Complaints: no complaints Subjective: Pt did nto have any nausea or vomitng overnight. Vitals stable. During the day, she complained of nausea. Review of Systems Constitutional: Reports: see HPI. Objective Last 24 Hrs of Vital Signs/I&O Vital Signs Date Time Temp Pulse Resp B/P B/P Pulse O2 O2 Flow FiO2 Mean Ox Delivery Rate 10/11 0557 98.1 94 20 138/82 94 Room Air 10/10 2240 99.1 72 16 136/82 94 Room Air 10/10 1359 98.9 79 20 162/94 95 Intake & Output 10/11 0800 10/11 0000 10/10 1600 Intake Total 800 350 Output Total 900 300 Balance -100 50 Intake, IV 400 150 Intake, Oral 400 200 Output, 300 Emesis Output, Urine 900 Physical Exam General Appearance: No Acute Distress Other Physical Findings: General Appearance: Alert, Oriented X3, Cooperative Skin: No Rashes, No Breakdown HEENT: Atraumatic, PERRLA, EOMI Neck: Supple Cardiovascular: Normal S1, Normal S2 Lungs: Clear to Auscultation, Normal Air Movement Abdomen: Normal Bowel Sounds, No Tenderness, feels sore to touch Neurological: Normal Gait, Normal Speech, Strength at 5/5 X4 Ext, Normal Tone Extremities: No Clubbing, No Cyanosis, No Edema Vascular: Normal Pulses Current Medications: Current Medications Sig/Mike Start time Last Medication Dose Route Stop Time Status Admin Acetaminophen 650 MG .STK-MED ONE 10/10 0814 DC PO 10/10 0815 Acetaminophen 650 MG Q6P PRN 10/08 1730 10/11 PO 0550 Alprazolam 1 MG ONCE ONE 10/10 1045 DC PO 10/10 1046 Alprazolam 1 MG 1400,1800,2200 10/08 2200 AC 10/10 PO 10/159 2223 Dextrose/Sodium 1,000 ML Q13H 10/10 1715 DC 10/10 Chloride IV 10/11 0514 1737 Enoxaparin Sodium 40 MG DAILY 10/08 1718 AC 10/10 SC 0817 Gabapentin 300 MG AT BEDTIME 10/08 2200 AC 10/10 PO 2222 Metoclopramide HCl 10 MG Q6P PRN 10/09 2044 AC 10/10 IV 1118 Multivitamins 1 TAB DAILY 10/08 1725 AC 10/09 Therapeutic PO 0849 Nicotine 14 MG DAILY 10/08 1734 AC 10/10 TOP 0816 Oxycodone/ 1 TAB Q6P PRN 10/08 1730 AC Acetaminophen PO Pantoprazole Sodium 40 MG ONCE ONE 10/10 1315 DC 10/10 IV 10/10 1316 1439 Pantoprazole Sodium 40 MG DAILY 10/08 1729 AC 10/10 IV 0816 Prochlorperazine 20 MG .STK-MED ONE 10/10 1325 DC IM 10/10 1326 Prochlorperazine 10 MG Q6-PRN PRN 10/08 1730 AC 10/10 IV 2222 Topiramate 25 MG AT BEDTIME 10/09 2200 AC 10/10 PO 2222 Assessment/Plan Assessment: Ms. Marquez is a pleasant 61 year old female with PMH bipolar disorder, anxiety and low back pain who presents with chief complaint of nausea, vomiting, epigastric discomfort and headache. Karen reports that every morning she experiences a severe headache that wakes her up from sleep with subsequent nausea followed by 5-10 episodes of persistent vomiting. Associated symptoms include dizziness, impaired balance and 2-3 episodes of diarrhea daily for about 2 months. In the ED: Vital signs showed T 98.0, HR 73, RR 20, BP 163/95 and O2 saturation 99% on room air. Labs were significant for WBC 12.2 with 88.8% granulocytes, H&H 15.2/46.4, Plt 239, and unremarkable BEP except for slightly elevated BUN to 20. Lactic acid 1.4, AST/ALT within normal limits, lipase 281. Urine shows epithelial cells with high protein, 15-25 RBCs, 103 WBCs, 3+ Ca OX crystals, rare hyaline casts and moderate bacteria. Patient is admitted to the general medicine floor and the following is the management: 1. Nausea, vomiting, diarrhea * Differential includes polypharmacy, gastritis, dyspepsia, Psychiatric * Elevated intracranial pressure unlikely in setting of unremarkable head MRI * Currently on full liquid diet. Advance as tolerated. * IV prochlorperazine 10 mg and IV reglan Q6PRN nausea vomiting. * IV protonix daily * Hold both imitrex and abilify as both are reported to cause nausea and vomiting * If patient has diarrhea, send for culture * GI consult placed, follow up recommendations 2. Intractable headache * Neuro exam nonfocal and without obvious deficit * Head MRI negative for acute pathology * Abilify also noted to have side effect of headaches, hold for now * IV morphine PRN severe pain, percocet PRN moderate pain, PO tylenol mild pain * Hold imitrex for now. 3. Mental health issues * Hold abilify due to possible contribution to nausea & vomiting * Psychiatric consulted - appreciate their recommendations 4. Tobacco use * Tobacco cessation counseling provided * Nicotine patch 14 mg topical daily FULL CODE DVTP: SC Lovenox Diet: diet. Mild to severe pain pathway Problem List: 1. Emesis, persistent Pain Ratin Pain Location: headache Pain Goal: Pain 4 or less Pain Plan: tylenol prn Tomorrow's Labs & Rationales: no labs necessary. WILMAN LEE,[facility] 10/11/16 1358: Attending MD Review Statement Attending Statement Attending MD Statement: examined this patient, discuss w/resident/PA/COTTON CLASSER AIDE, agreed w/resident/PA/COTTON CLASSER AIDE, reviewed EMR data (avail), discussed with nursing, discussed with case mgmt, reviewed images, amended to note Attending Assessment/Plan: Patient seen and examined, she continues to have some dry heaving. Overnight she did well. There is no vomiting. This morning she did complain of dry heaving again. Her vital signs remained stable. GI did not recommend any other intervention. As mentioned previously the cause of her nausea vomiting is thought to be adverse effects from the medications which include Imitrex as well as Abilify. Both of these medications have been held. I tried to ask the patient if there was anything else that was recently added but she denies. She does have history of chronic headaches and Topamax was added after neurology evaluation. At this point we'll advance her diet to full liquids and if he tolerates and will slowly advance to soft diet. Continue antiemetics. DVT px; Lovenox.
--- NOTE | 2016-10-11 08:00 | NUR ---
NURSING NOTE LATE ENTRY: SKIN SURROUNDING IV TO RF NOTED TO BE SWOLLEN AND RED. WARM TO TOUCH AND PAINFUL TO FLUSH. IV DISCONTINUED. ICE PACK GIVEN TO PATIENT FOR COMFORT.
[2016-10-11 14:30] VITALS: BP 142/80
--- NOTE | 2016-10-11 15:07 | PN- Gastroenterology ---
Assessment/Plan Assessment/Recommendations: Assessment: Ms. Marquez is a 61-year-old female with bipolar disorder who has been having intermittent intractable nausea and vomiting for the past 6 months of unclear etiology. She underwent a negative endoscopy in July for her symptoms and at the time of her office visit and at the time of the endoscopy she reported improvement with the PPI so was presumed her symptoms are secondary to GERD, however she is without typical reflux symptoms and has apparently had persistent symptoms in spite of continuing to take the PPI. She has continued to have vomiting in spite of anti-emetics and adjustments to her medical regimen , but she is without any concerning GI warning sings. Of note, she was borerline hypothyroid by a TSH about a month ago and it may be reasonable to repeat this now to see if hypothyroidism may be contributing to her symptoms, but I would defer to endocrine for this. Recommendations; 1. Advance diet as tolerated. 2. Continue to IV PPI with a plan to change to oral dosing when she is tolerating a full diet. 3. As pt continues to be symptomatic would change her to reglan 10mg IV q6hrs regularly rather than PRN 4. Adjustments to her psychiatric medications as per her primary care team. 5. Follow electrolytes and replete as needed. 6. To consider repeat TFTs and/or endocrinology input I will continue to follow this patient and make further recommendations based on her clinical course and results of further diagnostic testing. Subjective Subjective: Pt continues to have dry heaving and her diet hasn't been able to be advanced beyond liquids. She is without hematemesis and doesn't have significant abdominal pain. Objective Vital Signs and I&Os Vital Signs Date Time Temp Pulse Resp B/P B/P Pulse O2 O2 Flow FiO2 Mean Ox Delivery Rate 10/11 1430 99.5 67 18 142/80 97 Room Air 10/11 0557 98.1 94 20 138/82 94 Room Air 10/10 2240 99.1 72 16 136/82 94 Room Air Intake & Output 10/11 1600 10/11 0400 10/10 0400 10/09 1600 10/09 0400 Intake Total 1600 800 705 111 8255 490 Output Total 100 900 300 Balance 1500 -100 635 361 2772 490 Intake, IV 600 039 621 5810 150 Intake, Oral 1000 400 200 540 480 340 Number 1 Bowel Movements Output, 100 300 Emesis Output, Urine 900 Patient 192 lb 192 lb Weight Physical Exam General Appearance: well developed/nourished, no apparent distress, comfortable Head: atraumatic, normal appearance Respiratory: normal breath sounds, chest non-tender, no respiratory distress Cardiovascular: regular rate/rhythm Abdomen: normal bowel sounds, soft, non-tender Extremities: normal inspection, no edema Skin: intact, normal color Current Medications: Current Medications Sig/Mike Start time Last Medication Dose Route Stop Time Status Admin Acetaminophen 650 MG .STK-MED ONE 10/11 0551 DC PO 10/11 0552 Acetaminophen 650 MG Q6P PRN 10/08 1730 10/11 PO 0550 Alprazolam 1 MG 1400,1800,2200 10/08 2200 AC 10/11 PO 10/15 2159 1347 Dextrose/Sodium 1,000 ML Q13H 10/10 1715 RI 10/10 Chloride IV 10/11 0614 1737 Enoxaparin Sodium 40 MG DAILY 10/08 1718 10/11 SC 0853 Gabapentin 300 MG AT BEDTIME 10/08 2200 10/10 PO 2222 Metoclopramide HCl 10 MG Q6 10/11 1800 AC IV Metoclopramide HCl 10 MG Q6P PRN 10/09 2045 RI 10/11 IV 1154 Multivitamins 1 TAB DAILY 10/08 1725 10/11 Therapeutic PO 0852 Nicotine 14 MG DAILY 10/08 1734 10/11 TOP 0853 Oxycodone/ 1 TAB Q6P PRN 10/08 1730 AC Acetaminophen PO Pantoprazole Sodium 40 MG DAILY 10/08 1729 10/11 IV 0852 Patient Medication 1 ED .STK-MED ONE 10/11 1412 RI Teaching ED 10/11 1413 Prochlorperazine 10 MG Q6-PRN PRN 10/08 1730 10/11 IV 0854 Topiramate 25 MG AT BEDTIME 10/09 2200 10/10 PO 2222 Results Pertinent Lab Results: Laboratory Tests 10/09 0626 Chemistry Sodium (137 - 145 mmol/L) 139 Potassium (3.5 - 5.1 mmol/L) 3.7 Chloride (98 - 107 mmol/L) 101 Carbon Dioxide (22 - 30 mmol/L) 28 Anion Gap (5 - 16) 10 BUN (7 - 17 mg/dL) 9 Creatinine (0.5 - 1.0 mg/dL) 0.7 Estimated GFR (>60 ml/min) > 60 BUN/Creatinine Ratio (7 - 25 %) 12.9 Hematology CBC w Diff NO MAN DIFF REQ WBC (4.8 - 10.8 /CUMM) 8.5 RBC (4.20 - 5.40 /CUMM) 4.10 L Hgb (12.0 - 16.0 G/DL) 12.7 Hct (37 - 47 %) 37.7 MCV (81.0 - 99.0 FL) 92.0 MCH (27.0 - 31.0 PG) 31.0 RDW (11.5 - 14.5 %) 14.1 Plt Count (130 - 400 /CUMM) 191 MPV (7.4 - 10.4 FL) 7.0 L Gran % (42.2 - 75.2 %) 64.9 Lymphocytes % (20.5 - 51.1 %) 23.8 Monocytes % (1.7 - 9.3 %) 10.0 H Eosinophils % (0 - 5 %) 1.0 Basophils % (0.0 - 2.0 %) 0.3 Absolute Granulocytes (1.4 - 6.5 /CUMM) 5.5 Absolute Lymphocytes (1.2 - 3.4 /CUMM) 2.0 Absolute Monocytes (0.10 - 0.60 /CUMM) 0.8 H Absolute Eosinophils (0.0 - 0.7 /CUMM) 0.1 Absolute Basophils (0.0 - 0.2 /CUMM) 0 PUBS MCHC (33.0 - 37.0 G/DL) 33.7
[2016-10-11 23:46] VITALS: BP 136/72
[2016-10-12 06:25] VITALS: BP 128/80
--- NOTE | 2016-10-12 06:48 | PN- Housestaff ---
See Addendum Subjective Follow-up For: Nausea vomiting and diarrhea Headache Anxiety Subjective: Patient seen and examined at bedside this AM. She is laying in bed in no acute distress, though she appears slightly uncomfortable. She reports that she continues to have nausea, constant epigastric soreness and she has dry-heaved several times this morning. She was able to keep half a piece of toast down last night and tolerated a few bites of jello/broth this AM. She is unwilling to have her diet advanced at this time secondary to discomfort. She also noted a few episodes of loose stool whenever she vomits. Review of Systems Constitutional: Denies: chills, fever. EENTM: Denies: blurred vision, visual changes, hearing changes. Cardiovascular: Denies: chest pain, palpitations. Respiratory: Denies: cough, short of breath. Gastrointestinal: Reports: abdominal pain, diarrhea, distention, nausea, vomiting. Genitourinary: Denies: dysuria, hematuria. Musculoskeletal: Denies: back pain, joint pain. Skin: Denies: lumps, rash. Neurological/Psychological: Denies: confusion, headache, tremors. Hematologic/Endocrine: Denies: bruising, bleeding. Immunologic/Allergic: Denies: splenectomy. Objective Last 24 Hrs of Vital Signs/I&O Vital Signs Date Time Temp Pulse Resp B/P B/P Pulse O2 O2 Flow FiO2 Mean Ox Delivery Rate 10/12 0625 98.3 77 20 128/80 93 Room Air 10/11 2346 98.7 68 18 136/72 98 Room Air 10/11 1430 99.5 67 18 142/80 97 Room Air Intake & Output 10/12 1600 10/12 0800 10/12 0000 Intake Total 120 Output Total Balance 120 Intake, Oral 120 Physical Exam General Appearance: Alert, Oriented X3, Cooperative, No Acute Distress Skin: No Significant Lesion Skin Temp/Moisture Exam: Warm/Dry HEENT: Atraumatic, PERRLA, EOMI, Mucous Membr. moist/pink Neck: Supple, No JVD, No thryomegaly Lymphatic: Cervical nl Cardiovascular: Regular Rate, Normal S1, Normal S2 Lungs: Clear to Auscultation, Normal Air Movement Abdomen: Normal Bowel Sounds, Soft, Slight tenderness to epigastric pressure Neurological: Normal Speech, Normal Tone Extremities: No Clubbing, No Cyanosis, No Edema Vascular: Pulses Symmetrical Current Medications: Current Medications Sig/Mike Start time Last Medication Dose Route Stop Time Status Admin Acetaminophen 650 MG Q6P PRN 10/08 1730 AC 10/11 PO 0550 Alprazolam 1 MG 1400,1800,2200 10/08 2200 AC 10/11 PO 10/15 215 2235 Enoxaparin Sodium 40 MG DAILY 10/08 1718 AC 10/12 SC 0903 Gabapentin 300 MG AT BEDTIME 10/08 2200 AC 10/11 PO 2235 Metoclopramide HCl 10 MG Q6 10/11 1800 AC 10/12 IV 0553 Metoclopramide HCl 10 MG Q6P PRN 10/09 2045 DC 10/11 IV 1154 Multivitamins 1 TAB DAILY 10/08 1725 AC 10/12 Therapeutic PO 0903 Nicotine 14 MG DAILY 10/08 1734 10/12 TOP 0904 Oxycodone/ 1 TAB Q6P PRN 10/08 1730 AC Acetaminophen PO Pantoprazole Sodium 40 MG DAILY 10/08 1729 10/11 IV 0852 Patient Medication 1 ED .STK-MED ONE 10/11 1412 DC Teaching ED 10/11 1413 Prochlorperazine 10 MG .STK-MED ONE 10/11 2051 DC IM 10/11 205 Prochlorperazine 10 MG .STK-MED ONE 10/11 1532 DC IM 10/11 1533 Prochlorperazine 10 MG Q6-PRN PRN 10/08 1730 AC 10/12 IV 0625 Topiramate 25 MG AT BEDTIME 10/09 2200 AC 10/11 PO 2235 Last 24 Hrs of Lab/[place] Results Last 24 Hrs of Labs/Mics: Laboratory Tests 10/12/16 0624: Anion Gap 10, Estimated GFR > 60, BUN/Creatinine Ratio 12.5 Assessment/Plan Assessment: Ms. Marquez is a pleasant 61 year old female with PMH bipolar disorder, anxiety and low back pain who presents with chief complaint of nausea, vomiting, epigastric discomfort and headache. Karen reports that every morning she experiences a severe headache that wakes her up from sleep with subsequent nausea followed by 5-10 episodes of persistent vomiting. Associated symptoms include dizziness, impaired balance and 2-3 episodes of diarrhea daily for about 2 months. In the ED: Vital signs showed T 98.0, HR 73, RR 20, BP 163/95 and O2 saturation 99% on room air. Labs were significant for WBC 12.2 with 88.8% granulocytes, H&H 15.2/46.4, Plt 239, and unremarkable BEP except for slightly elevated BUN to 20. Lactic acid 1.4, AST/ALT within normal limits, lipase 281. Urine shows epithelial cells with high protein, 15-25 RBCs, 103 WBCs, 3+ Ca OX crystals, rare hyaline casts and moderate bacteria. Patient is admitted to the general medicine floor and the following is the management: 1. Nausea, vomiting, diarrhea * Differential on admission included polypharmacy, gastritis, dyspepsia, psychiatric, dysmotility disorder * Elevated intracranial pressure unlikely in setting of unremarkable head MRI * Barium study performed today showed esophageal dysmotility and delayed gastric emptying, will follow up with GI in regards to further recommendations/therapy * Currently on full liquid diet. Advance as tolerated (currently will not advance due to nausea) * IV reglan Q6 nausea vomiting and IV prochlorperazine 10 mg Q6PRN * IV protonix daily * Hold both imitrex and abilify as both are reported to cause nausea and vomiting * GI consult appreciated, continue to follow up recommendations (as instructed by GI, will recheck TFTs tomorrow) 2. Intractable headache, RESOLVED * Neuro exam nonfocal and without obvious deficit * Head MRI negative for acute pathology * Abilify also noted to have side effect of headaches, continue to hold * Percocet PRN moderate pain, PO tylenol mild pain (no Morphine) * Continue to hold imitrex 3. Mental health issues * Hold abilify due to possible contribution to nausea & vomiting * Psychiatric consulted - appreciate their recommendations * [facility] 12[facility]16 at 3:00 PM, will let patient know that if she decides she would like a sooner appointment, she can call [phone] to reschedule 4. Tobacco use * Tobacco cessation counseling provided * Nicotine patch 14 mg topical daily FULL CODE DVTP: SC Lovenox Diet: full liquid Mild to moderate pain pathway Problem List: 1. Abdominal pain 2. Emesis, persistent Pain Ratin Pain Location: Epigastric region Pain Goal: Remain pain free Pain Plan: PRN pain pathway Tomorrow's Labs & Rationales: None.
--- NOTE | 2016-10-12 07:00 | NUR ---
NURSING NOTE: SKIN SURROUNDING IV SITE TO LF NOTED TO BE RED. IV DISCONTINUED AT THIS TIME. WILL SPEAK WITH SHADI CALIX RN. HISTOLOGY TECH 133 NOTIFIED.
--- NOTE | 2016-10-12 08:41 | PN- Student ---
Subjective Subjective: This morning Mrs. Marquez is still feeling nauseated. She vomited a small amount of fluid this morning and has had constant epigastric pain. She reports having 3 -4 loose stools per day, dizziness while laying in bed, and has had new IV site redness. She still denies any chest pain, palpitations, breathing difficulty, weaknes, or numbness and tingling in her extremities. Objective Objective: Vital Signs Date Time Temp Pulse Resp B/P B/P Pulse O2 O2 Flow FiO2 Mean Ox Delivery Rate 10/12 0625 98.3 77 20 128/80 93 Room Air 10/11 2346 98.7 68 18 136/72 98 Room Air 10/11 1430 99.5 67 18 142/80 97 Room Air Intake & Output 10/12 1600 10/12 0800 10/12 0000 Intake Total 120 Output Total Balance 120 Intake, Oral 120 PE: General- AAO x 3, cooperative, well nourished, NAD HEENT- atraumatic, PERRLA, membranes moist and pink Neck- supple, no lymphadenopathy or thyromegaly, trachea is midline CV- S1 and S2 heard, regular rate and rhythm, no murmurs or rubs appreciated, distal pulses present and full Respiratory- equal chest rise bilaterally, vesicular breath sounds heard in all lung lisa. No distress. Abdomen- bowel sounds heard, soft with epigastric tenderness on palpation. Skin- warm and well perfused, no lesions noted on exam. Ext- 5/5 strength x all 4 extremities, motor and sensations grossly intact Results Results: Laboratory Tests 10/12/16 0624: Anion Gap 10, Estimated GFR > 60, BUN/Creatinine Ratio 12.5 Assessment/Plan Assessment: Mrs. Marquez is a 61 yo white F with a PMH of anxiety, bipolar disorder (on abilify), and chronic low back pain who presented to the ED on 10/08/16 with nausea, vomiting, epigastric pain, and headaches that have been occuring for the past 2 months. She also reported 2-3 episodes of non bloody stringy diarrhea per day for the last 1-2 months, however she has had none in the hospital. She described her symptoms as 8/10 abdominal pain on vomiting, and 7/10 for headaches. Her symptoms are worse in the morning typically with the headache causing her to wake up from sleep. she reports that morphine is the only thing that helps her headaches and that it also helps her abdominal pain. She saw Dr. Atkinson in july for the same symptoms, endoscopy was done which showed no cause of her symptoms. There are also complaints of balance issues (walking like she is drunk, as per friends), and dizziness without any falls. She denied any fever , chills, vision changes, dyspnea, chest pain, dysuria, weakness or numbness. Vitals on admission: temp- 98, HR- 73, RR- 20, BP- 163/95, SpO2- 99% on room air. Labs significant for WBC- 12.2, H/H- 15.2/46.4, Lactic acid- 1.4, T. bilirubin- 0.6, AST- 23, ALT-39, BUN- 20, Benefits Specialist Recruiter- 0.7. EKG Results: NSR HR 67 bpm, QTC 423, AR 112, no change from prior. US RUQ IMPRESSION: Unremarkable right upper quadrant abdominal ultrasound. No cholelithiasis or secondary signs of acute cholecystitis. MRI of head IMPRESSION: Motion degraded study without evidence of acute brain ischemia. The caliber of the ventricular system appears normal. No convincing change from 08/15/[address] abdomen and pelvis (October 06, 2016): No acute abnormality CT scan abdomen and pelvis. Nodule right adrenal gland measuring 2 cm indeterminate on this postcontrast study. A CT adrenal study would be helpful for further assessment. Today patient is still complaining of nausea and vomiting. Last episode of vomiting was this morning in which she vomited small amount of fluid. Constant epigastric pain could be due to the vomiting or possibly a dysmotility disorder. She reports some dizziness while laying in bed, is having 3-4 loose stools per day and has developed an acute IV site thrombophebitis in two sites (one on the right forearm, one on the left forearm). Her vitals still remain stable temp- 98.3, HR-77, RR-20, BP-128/80, SpO2- 93% on room air. Her labs today are normal with Na- 141, K-4.6, CO2-30, Cl-100, Bun-10, Benefits Specialist Recruiter-0.8. Current Medications Sig/Mike Start time Last Medication Dose Route Stop Time Status Admin Acetaminophen 650 MG Q6P PRN 10/08 1730 AC 10/11 PO 0550 Alprazolam 1 MG 1400,1800,2200 10/08 2200 AC 10/12 PO 10/15 2159 1316 Amitriptyline HCl 25 MG DAILY 10/12 1306 AC 10/12 PO 1418 Enoxaparin Sodium 40 MG DAILY 10/08 1718 AC 10/12 SC 0903 Gabapentin 300 MG AT BEDTIME 10/08 2200 AC 10/11 PO 2235 Metoclopramide HCl 10 MG Q6 10/12 1800 AC PO Metoclopramide HCl 10 MG Q6 10/11 1800 DC 10/12 IV 0553 Multivitamins 1 TAB DAILY 10/08 1725 AC 10/12 Therapeutic PO 0903 Nicotine 14 MG DAILY 10/08 1734 AC 10/12 TOP 0904 Omeprazole 40 MG DAILY AC 10/12 1220 AC 10/12 PO 1236 Oxycodone/ 1 TAB Q6P PRN 10/08 1730 AC Acetaminophen PO Pantoprazole Sodium 40 MG DAILY 10/08 1729 DC 10/11 IV 0852 Prochlorperazine 10 MG Q8P PRN 10/12 1315 AC PO Prochlorperazine 10 MG .STK-MED ONE 10/12 0557 DC IM 10/12 0558 Prochlorperazine 10 MG .STK-MED ONE 10/11 2051 DC IM 10/11 205 Prochlorperazine 10 MG .STK-MED ONE 10/11 1532 DC IM 10/11 1533 Prochlorperazine 10 MG Q6-PRN PRN 10/08 1730 DC 10/12 IV 0625 Topiramate 25 MG AT BEDTIME 10/09 2200 10/11 PO 2235 Plan: Patient admitted to general medicine floor for management. Problem list: 1. Nausea, vomiting, abdominal pain- -possible causes are drug side effects, elevated intracranial pressure although MRI was negative, GI pathology -Continue D5W at 150 cc/h, continue clear liquid diet as she is still vomiting, advance diet as tolerated -IV prochlorperazine 10 mg Q8 PRN and IV reglan 10mg Q6Hrs -IV protonix daily -discontinue both imitrex and abilify (both are reported to cause nausea and vomiting) -Culture stool if diarrhea -Odered barium swallow study to assess for dysmotility. -No evidence of hiatal hernia or gastroesophageal reflux. -There was esophageal dysmotility without esophageal stricture, mass or ulceration. -GI consult placed, recommendations below: -Advance diet as tolerated. -Continue to IV PPI with a plan to change to oral dosing when she is tolerating a full diet. -Continue regular administration of reglan and if she has recurrent vomiting would re-establish IV access, but if she continues to be asymptomatic would change to PO reglan. -Adjustments to her psychiatric medications as per her primary care team. -Follow electrolytes and replete as needed. -To consider repeat TFTs and/or endocrinology input -If symptoms persist inspite of reglan (IV or PO) would then consider IV erythromycin and/or starting a TCA (elavil) for CVS 2. Headache- -Neuro exam on admission nonfocal and without obvious deficit, funduscopic exam only positive for cataracts, no papilledema noted. -Head MRI negative -Abilify noted, as above, to have side effect of headaches, hold for now -Discontinue IV morphine, PO tylenol for mild pain -Neuro consult placed recommendations below: - continue topiramate at 25 mg daily at bedtime increased by 25 mg every week to an initial target dose of 50 mg twice a day. Outpatient follow up on discharge and adjust medications accordingly. No further neurodiagnostic studies are currently anticipated. 3. Mental health issues- -discontinue abilify and continue other psychiatric medications, as per psych. -follow up with outpatient psychiatric services. [facility] 12/[facility]/16 at 3:00 PM 4. Tobacco use- -Tobacco cessation counseling provided -Nicotine patch 14 mg topical daily Diet- full liquid Code Status- Full DVT prophylaxis- lovenox SQ Code Status- Full DVT prophylaxis- lovenox SQ
--- NOTE | 2016-10-12 10:47 | NUR ---
NURSING NOTE: PATIENT LEFT FLOOR FOR MBS EVAL VIA STRETCHER WITH DISTRIBUTION. PATIENT A/OX3, STEADY GAIT, PAIN TOLERABLE PER PATIENT. NAUSEA STILL PRESENT BUT NO VOMITING AT THIS TIME. WILL AWAIT RETURN.
--- NOTE | 2016-10-12 11:32 | RADIOLOGY REPORT ---
EXAMINATION: XR BARIUM SWALLOW/ESOPHAGRAM CLINICAL INFORMATION: Nausea. COMPARISON: CT images of the abdomen pelvis from 05/08/2016. TECHNIQUE: Real-time fluoroscopic imaging of the oropharynx and esophagus was performed with the patient in upright and prone positions. Barium contrast of thick and thin consistency was administered and multiple spot fluoroscopy images were obtained. FLUOROSCOPY TIME: 1 minute, 42 seconds Number of saved fluoroscopy images: 25 FINDINGS Deglutition was normal. No episodes of tracheal aspiration or penetration. The vallecula and piriform sinuses were normal and symmetric in configuration. No evidence of a prominent cricopharyngeal impression, Zenker diverticulum, mucosal ulceration, mass or stricture. No hiatal hernia, and no episodes of gastroesophageal reflux occurred during this examination which included Valsalva maneuvers. With the patient in the prone, swimmer's position, esophageal dysmotility was noted with interruption of the primary peristaltic stripping wave at the level of the aortic arch followed by persistence barium within the esophagus. There was delayed, gradual emptying of contrast. IMPRESSION: 1. No evidence of hiatal hernia or gastroesophageal reflux. 2. There was esophageal dysmotility without esophageal stricture, mass or ulceration.
--- NOTE | 2016-10-12 11:45 | NUR ---
NURSING NOTE: PATIENT RETURNED TO FLOOR VIA STRETCHER WITH DISTRIBUTION FROM [facility]. NO ACUTE CHANGES NOTED. PATIENT NAUSEAS BUT COMFORTABLE AT THIS TIME. TRYING TO REST.
--- NOTE | 2016-10-12 12:15 | NUR ---
NURSING NOTE: SHADI CELLULOID TRIMMER CALLED TO PLACE NEW IV FOR PATIENT. SHADI EXPRESSED CONCERNS WITH PATIENTS OLD IV SITES. NO IMPROVEMENTS NOTED FROM YESTERDAY. FUEL EFFICIENT AIRCRAFT DESIGNER 133 CALLED TO ASSESS PATIENT'S OLD IV SITES. COLD COMPRESS APPLIED TO RIGHT FOREARM AT THIS TIME. NO NEW IV ACCESS TO BE OBTAINED AT THIS TIME.
--- NOTE | 2016-10-12 13:06 | NUR ---
NURSING NOTE: PATIENT REDNESS OUTLINE ON BOTH FAREARMS AT THIS TIME FROM OLD IV SITES.
[2016-10-12] MEDS ORDERED: AMITRIPTYLINE H25 M2 PO (13:31)
[2016-10-12] MEDS ORDERED: METOCLOPRAMIDE10 M2 PO (13:31)
--- NOTE | 2016-10-12 13:45 | PN- Gastroenterology ---
Assessment/Plan Assessment/Recommendations: Assessment: Ms. Marquez is a 61-year-old female with bipolar disorder who has been having intermittent intractable nausea and vomiting for the past 6 months of unclear etiology. She underwent a negative endoscopy in July for her symptoms and at the time of her office visit and at the time of the endoscopy she reported improvement with the PPI so was presumed her symptoms are secondary to GERD, however she is without typical reflux symptoms and has apparently had persistent symptoms in spite of continuing to take the PPI. She also had a barium swallow yesterday that didn't show reflux. The barium swallow did suggest esophageal dyspmotility and delayed esophageal clearance of barium which may be contributing to her symptoms, but a barium swallow is not a reliable way to assess esophageal motility so I am uncertain as to the usefulness of this information. She has had some improvement with regular administration of reglan over the past 24 hours, but she has felt well during the day in the past only to have recurrent symptoms later. If she continues to have recurrent symptoms would recommend starting a TCA or SSRI for cyclical vomiting syndrom or it may also be reasonable to try to 'kick start' her stomach with a dose of IV erythromycin for empiric treatment of gastroparesis which has also not been officially diagosed by a gastric emptying study which was never pursued as she reported symptomatic improvement at the time of the EGD in July. Recommendations; 1. Advance diet as tolerated. 2. Continue to IV PPI with a plan to change to oral dosing when she is tolerating a full diet. 3. Continue regular administration of reglan and if she has recurrent vomiting would re-establish IV access, but if she continues to be asymptomatic would change to PO reglan. 4. Adjustments to her psychiatric medications as per her primary care team. 5. Follow electrolytes and replete as needed. 6. To consider repeat TFTs and/or endocrinology input 7. If symptoms persist inspite of reglan (IV or PO) would then consider IV erythromycin and/or starting a TCA (elavil) for CVS I will continue to follow this patient and make further recommendations based on her clinical course and results of further diagnostic testing. Problem List: 1. Epigastric pain 2. Vomiting Subjective Subjective: Pt was changed to a standing order of reglan yesterday which she has been getting, but she just lost her IV access. She is currently doing well today although she did have some dry heaving yesterday. She is without any currently abdominal pain and she is tolerating liquids. Objective Vital Signs and I&Os Vital Signs Date Time Temp Pulse Resp B/P B/P Pulse O2 O2 Flow FiO2 Mean Ox Delivery Rate 10/12 0625 98.3 77 20 128/80 93 Room Air 10/11 2346 98.7 68 18 136/72 98 Room Air 10/11 1430 99.5 67 18 142/80 97 Room Air Intake & Output 10/12 1600 10/12 0400 10/11 1600 10/11 0400 10/10 1600 10/10 0400 Intake Total 120 1600 800 450 540 Output Total 100 900 300 Balance 120 1500 -100 150 540 Intake, IV 600 400 250 Intake, Oral 120 1000 400 200 540 Number 1 Bowel Movements Output, 100 300 Emesis Output, Urine 900 Patient 192 lb 192 lb Weight Physical Exam General Appearance: well developed/nourished, no apparent distress, obese Head: atraumatic, normal appearance Neck: normal inspection, supple, full range of motion Respiratory: normal breath sounds, chest non-tender Cardiovascular: regular rate/rhythm Abdomen: normal bowel sounds, soft, non-tender Back: normal inspection Skin: intact, normal color, warm/dry Current Medications: Current Medications Sig/Mike Start time Last Medication Dose Route Stop Time Status Admin Acetaminophen 650 MG Q6P PRN 10/08 1730 AC 10/11 PO 0550 Alprazolam 1 MG 1400,1800,2200 10/08 2200 10/12 PO 10/15 2159 1316 Amitriptyline HCl 25 MG DAILY 10/12 1306 AC PO Enoxaparin Sodium 40 MG DAILY 10/08 1718 AC 10/12 SC 0903 Gabapentin 300 MG AT BEDTIME 10/08 2200 AC 10/11 PO 2235 Metoclopramide HCl 10 MG Q6 10/12 1800 AC PO Metoclopramide HCl 10 MG Q6 10/11 1800 DC 10/12 IV 0553 Metoclopramide HCl 10 MG Q6P PRN 10/09 2045 DC 10/11 IV 1154 Multivitamins 1 TAB DAILY 10/08 1725 AC 10/12 Therapeutic PO 0903 Nicotine 14 MG DAILY 10/08 1734 AC 10/12 TOP 0904 Omeprazole 40 MG DAILY AC 10/12 1220 AC 10/12 PO 1236 Oxycodone/ 1 TAB Q6P PRN 10/08 1730 AC Acetaminophen PO Pantoprazole Sodium 40 MG DAILY 10/08 1729 DC 10/11 IV 0852 Patient Medication 1 ED .STK-MED ONE 10/11 1412 DC Teaching ED 10/11 1413 Prochlorperazine 10 MG Q8P PRN 10/12 1315 AC PO Prochlorperazine 10 MG .STK-MED ONE 10/11 2051 DC IM 10/11 205 Prochlorperazine 10 MG .STK-MED ONE 10/11 1532 DC IM 10/11 1533 Prochlorperazine 10 MG Q6-PRN PRN 10/08 1730 DC 10/12 IV 0625 Topiramate 25 MG AT BEDTIME 10/09 2200 AC 10/11 PO 2235 Results Pertinent Lab Results: Laboratory Tests 10/13 623 Chemistry Sodium (137 - 145 mmol/L) 141 Potassium (3.5 - 5.1 mmol/L) 4.6 Chloride (98 - 107 mmol/L) 100 Carbon Dioxide (22 - 30 mmol/L) 30 Anion Gap (5 - 16) 10 BUN (7 - 17 mg/dL) 10 Creatinine (0.5 - 1.0 mg/dL) 0.8 Estimated GFR (>60 ml/min) > 60 BUN/Creatinine Ratio (7 - 25 %) 12.5 Imaging/Other Studies: SERVICE DATE: 10/12/16- EXAM TYPE: RAD - XRY-BARIUM SWALLOW/ESOPHAGRAM EXAMINATION: XR BARIUM SWALLOW/ESOPHAGRAM CLINICAL INFORMATION: Nausea. COMPARISON: CT images of the abdomen pelvis from 05/08/2016. TECHNIQUE: Real-time fluoroscopic imaging of the oropharynx and esophagus was performed with the patient in upright and prone positions. Barium contrast of thick and thin consistency was administered and multiple spot fluoroscopy images were obtained. FLUOROSCOPY TIME: 1 minute, 42 seconds Number of saved fluoroscopy images: 25 FINDINGS Deglutition was normal. No episodes of tracheal aspiration or penetration. The vallecula and piriform sinuses were normal and symmetric in configuration. No evidence of a prominent cricopharyngeal impression, Zenker diverticulum, mucosal ulceration, mass or stricture. No hiatal hernia, and no episodes of gastroesophageal reflux occurred during this examination which included Valsalva maneuvers. With the patient in the prone, swimmer's position, esophageal dysmotility was noted with interruption of the primary peristaltic stripping wave at the level of the aortic arch followed by persistence barium within the esophagus. There was delayed, gradual emptying of contrast. IMPRESSION: 1. No evidence of hiatal hernia or gastroesophageal reflux. 2. There was esophageal dysmotility without esophageal stricture, mass or ulceration.
[2016-10-12 14:23] VITALS: BP 134/80
[2016-10-12] MEDS ORDERED: TOPIRAMATE25 M2 PO (15:09)
[2016-10-12 21:26] VITALS: BP 126/86
--- NOTE | 2016-10-12 23:52 | NUR ---
PATIENT TOLERATING ADVANCED DIET WELL. NO NAUSEA/VOMITING THIS SHIFT. PT C/O SOME DISCOMFORT, MEDICATED WITH TYLENOL. REDNESS TO EMILY ARMS PERSISTING, BUT IMPROVING, NO C/O PAIN. PT LOOKING FORWARD TO GOING HOME, AND IS HAPPY SHE IS FINALLY FEELING BETTER. SAFETY MAINTAINED, NEEDS WITHIN REACH.
[2016-10-13 06:55] VITALS: BP 132/88
--- NOTE | 2016-10-13 08:20 | PN- Housestaff ---
See Addendum Subjective Follow-up For: Nausea vomiting and diarrhea Headache Anxiety Subjective: Patient seen and examined at bedside this AM. She is feeling much better and is happy with the addition of the TCA for esophageal dysmotility. She reports she tolerated a regular/solid diet for breakfast without nausea, vomiting or epigastric pain. She is requesting discharge today as she feels well enought to leave. She also notes that the bilateral forearm thrombophlebitis is much improved from yesterday and she will continue to use ice packs PRN. Review of Systems Constitutional: Denies: chills, fever, malaise. EENTM: Denies: blurred vision, visual changes, hearing changes. Cardiovascular: Denies: chest pain, palpitations. Respiratory: Denies: cough, short of breath. Gastrointestinal: Denies: abdominal pain, nausea, vomiting. Genitourinary: Denies: dysuria, hesitation. Musculoskeletal: Denies: back pain, joint pain. Skin: Denies: lumps, rash. Neurological/Psychological: Denies: confusion, headache. Hematologic/Endocrine: Denies: bruising, bleeding. Immunologic/Allergic: Denies: splenectomy. Objective Last 24 Hrs of Vital Signs/I&O Vital Signs Date Time Temp Pulse Resp B/P B/P Pulse O2 O2 Flow FiO2 Mean Ox Delivery Rate 10/13 0655 98.0 84 20 132/88 95 10/12 2126 98.3 93 22 126/86 95 Room Air 10/12 1423 98.4 80 20 134/80 96 Room Air Intake & Output 10/13 1600 10/13 0800 10/13 0000 Intake Total 240 840 Output Total Balance 240 840 Intake, IV 0 Intake, Oral 240 840 Number 0 Bowel Movements Physical Exam General Appearance: Alert, Oriented X3, Cooperative, No Acute Distress Skin: Forearm erythema improving from yesterday, less swelling associated with thrombophlebitis. HEENT: Atraumatic, EOMI, Mucous Membr. moist/pink Neck: Supple, No JVD Lymphatic: Cervical nl Cardiovascular: Regular Rate, Normal S1, Normal S2, No Murmurs Lungs: Clear to Auscultation, Normal Air Movement Abdomen: Normal Bowel Sounds, Soft, No Tenderness, No Masses Neurological: Normal Speech, Strength at 5/5 X4 Ext, Normal Tone Extremities: No Clubbing, No Cyanosis, No Tenderness/Swelling Vascular: Pulses Symmetrical Current Medications: Current Medications Sig/Mike Start time Last Medication Dose Route Stop Time Status Admin Acetaminophen 650 MG .STK-MED ONE 10/12 215 DC PO 10/12 215 Acetaminophen 650 MG .STK-MED ONE 10/12 1750 DC PO 10/12 175 Acetaminophen 650 MG Q6P PRN 10/08 1730 AC 10/12 PO 215 Alprazolam 1 MG 1400,1800,2200 10/08 2200 AC 10/12 PO 10/15 215 215 Amitriptyline HCl 25 MG DAILY 10/12 1306 AC 10/13 PO 0913 Enoxaparin Sodium 40 MG DAILY 10/08 1718 AC 10/13 SC 0914 Gabapentin 300 MG AT BEDTIME 10/08 2200 AC 10/12 PO 215 Metoclopramide HCl 10 MG Q6 10/12 1800 AC 10/13 PO 0555 Metoclopramide HCl 10 MG Q6 10/11 1800 DC 10/12 IV 0553 Multivitamins 1 TAB DAILY 10/08 1725 AC 10/13 Therapeutic PO 0913 Nicotine 14 MG DAILY 10/08 1734 AC 10/13 TOP 0913 Omeprazole 40 MG DAILY AC 10/12 1220 AC 10/13 PO 0555 Oxycodone/ 1 TAB Q6P PRN 10/08 1730 AC Acetaminophen PO Pantoprazole Sodium 40 MG DAILY 10/08 1729 DC 10/11 IV 0852 Prochlorperazine 10 MG Q8P PRN 10/12 1315 AC PO Prochlorperazine 10 MG Q6-PRN PRN 10/08 1730 DC 10/12 IV 0625 Topiramate 25 MG AT BEDTIME 10/09 2200 AC 10/12 PO 215 Assessment/Plan Assessment: Ms. Marquez is a pleasant 61 year old female with PMH bipolar disorder, anxiety and low back pain who presents with chief complaint of nausea, vomiting, epigastric discomfort and headache. Karen reports that every morning she experiences a severe headache that wakes her up from sleep with subsequent nausea followed by 5-10 episodes of persistent vomiting. Associated symptoms include dizziness, impaired balance and 2-3 episodes of diarrhea daily for about 2 months. In the ED: Vital signs showed T 98.0, HR 73, RR 20, BP 163/95 and O2 saturation 99% on room air. Labs were significant for WBC 12.2 with 88.8% granulocytes, H&H 15.2/46.4, Plt 239, and unremarkable BEP except for slightly elevated BUN to 20. Lactic acid 1.4, AST/ALT within normal limits, lipase 281. Urine shows epithelial cells with high protein, 15-25 RBCs, 103 WBCs, 3+ Ca OX crystals, rare hyaline casts and moderate bacteria. Patient is admitted to the general medicine floor and the following is the management: 1. Nausea, vomiting, diarrhea * Differential on admission included polypharmacy, gastritis, dyspepsia, psychiatric, dysmotility disorder * Elevated intracranial pressure unlikely in setting of unremarkable head MRI * Barium study performed yesterday showed esophageal dysmotility and delayed gastric emptying, therefore amitriptyline 25 mg PO daily was started (patient reports much improvement, able to tolerate solid food without nausea and vomiting--> stable for discharge today) * PO reglan Q6 nausea vomiting and PO prochlorperazine 10 mg Q8PRN, discharge patient with antiemetics * PO protonix daily * Hold both imitrex and abilify as both are reported to cause nausea and vomiting; hold even at discharge * GI consult appreciated, continue to follow up recommendations (as instructed by GI, will have TFTs rechecked in outpatient setting); patient to follow up with Dr. Demetrio MD after discharge 2. Intractable headache, RESOLVED * Neuro exam contionues to be nonfocal and without obvious deficit * Head MRI negative for acute pathology * Abilify also noted to have side effect of headaches, continue to hold inpatient/at discharge * Percocet PRN moderate pain, PO tylenol mild pain (no morphine) * Continue to hold imitrex now/at discharge 3. Mental health issues * Hold abilify due to possible contribution to nausea & vomiting * Psychiatric consulted - appreciate their recommendations * Next appointment at [facility] on 12/05/16 at 3:00 PM, will let patient know that if she decides she would like a sooner appointment, she can call [phone] to reschedule 4. Tobacco use * Tobacco cessation counseling provided * Nicotine patch 14 mg topical daily FULL CODE DVTP: SC Lovenox Diet: full liquid Mild to moderate pain pathway Problem List: 1. Abdominal pain 2. Emesis, persistent 3. Vomiting Pain Ratin Pain Location: n/a Pain Goal: Remain pain free Pain Plan: Per pain pathway Tomorrow's Labs & Rationales: None, discharge today.
[2016-10-13] MEDS ORDERED: TOPIRAMATE25 M2 PO ×2 (09:23→11:14)
[2016-10-13] MEDS ORDERED: AMITRIPTYLINE H25 M2 PO ×2 (09:23→11:14)
[2016-10-13] MEDS ORDERED: METOCLOPRAMIDE10 M2 PO ×2 (09:23→11:14)
--- NOTE | 2016-10-13 12:59 | Discharge Summary ---
Visit Information Visit Dates Admission Date: 10/09/16 Discharge Date: 10/13/16 Hospital Course Course Attending Physician: IVAN STOVALL MD Primary Care Physician: BERTHA RUIZ MD Consulting Request: 1 Consulting Specialty: Gastroenterology Consulting Physician: Dr. Demetrio MD Reason for Consult: Persistent nausea and vomiting Consulting Request: 2 Consulting Specialty: Psychiatry Consulting Physician: SAGAR Wilkerson Reason for Consult: Discotinuation of home psychiatric medications due to side effects Consulting Request: 3 Consulting Specialty: Neurology Consulting Physician: Dr. Mook Newell MD Reason for Consult: Intractable headache Hospital Course: Ms. Marquez is a pleasant 61 year old female with PMH bipolar disorder, anxiety and low back pain who presents with chief complaint of nausea, vomiting, epigastric discomfort and headache. Karen reports that every morning she experiences a severe headache that wakes her up from sleep with subsequent nausea followed by 5-10 episodes of persistent vomiting. Associated symptoms include dizziness, impaired balance and 2-3 episodes of diarrhea daily for about 2 months. In the ED: Vital signs showed T 98.0, HR 73, RR 20, BP 163/95 and O2 saturation 99% on room air. Physical exam on admission: General Appearance Alert, Oriented X3, Cooperative, No Acute Distress Skin No Significant Lesion Skin Temp/Moisture Exam: Warm/Dry HEENT Atraumatic, PERRLA, EOMI, Slightly dry oral mucosa, Fundoscopic exam unremarkable, no nystagmus on extraocular muscle testing Neck Supple, No JVD, +2 Carotid Pulse wo Bruit Lymphatic Cervical nl Cardiovascular Regular Rate, Normal S1, Normal S2 Lungs Clear to Auscultation, Normal Air Movement Abdomen Normal Bowel Sounds, Soft, Tenderness to deep palpation of epigastric region, obese, no hepatosplenomegaly/masses appreciated Neurological Normal Speech, Strength at 5/5 X4 Ext, Normal Tone, Cranial Nerves 3-12 NL, Reflexes 2+, Downgoing babinski Extremities No Clubbing, No Cyanosis, No Tenderness/Swelling Vascular Pulses Symmetrical Labs were significant for WBC 12.2 with 88.8% granulocytes, H&H 15.2/46.4, Plt 239, and unremarkable BEP except for slightly elevated BUN to 20. Lactic acid 1.4, AST/ALT within normal limits, lipase 281. Urine shows epithelial cells with high protein, 15-25 RBCs, 103 WBCs, 3+ Ca OX crystals, rare hyaline casts and moderate bacteria. Patient was admitted to the general medicine floor and the following was the management: 1. Intractable nausea and vomiting: On admission, differential included polypharmacy, gastritis, dyspepsi and motility disorders. Head MRI on admission was unremarkable. Home imitrex and abilify placed on hold as both as known to cause nausea and vomiting. GI consult with Dr. Demetrio MD was placed. Patient was started on clear liquid diet and given IV antiemetics. IV protonix also started. Despite antiemetics and slow advancement of diet, patient showed minimal improvement. Barium swallow was then done which showed esophageal dysmolitiy which is likely promoting nausea/vomiting. Amitriptyline 25 mg PO daily was then started. Patient tolerated this very well and diet was advanced to regular with no further abdominal pain/nausea. Patient was discharged on amitriptyline and metoclopramide. Abilify and imitrex stopped on discharge. 2. Intractable headace/Chronic daily headache: On presentation, examination was nonfocal without obvious deficit. Head MRI on admission was negative for acute pathology. Neurology consult was obtained. Abilify held as it is also known to cause headaches. IV morphine was ordered PRN for severe pain, percocet PRN for moderate pain and PO tylenol PRN for mild pain. Dr. Mounika MD recommended preventative therapy with topiramate, beginning at 25 mg daily at bedtime and increasing by 25 mg every week to an initial target dose of 50 mg twice a day. Patient tolerated this well and headache improved throughout her stay. She was discharged on this medications and should follow up with Dr. Newell within 1-2 weeks for further management and increasing medication dose as indicated. Patient should also follow up with her PCP for continued care. 3. Mental health: Patient has a history of anxiety and bipolar disorder. Abilify held as noted above. Psychiatric consult placed and no further psychotropic medications were ordered. Patient to follow-up at [facility] outpatient psychiatric services. Next appointment at [facility] on 12/05/16 at 3: 00 PM. 4. Tobacco use: Tobacco cessation counseling provided. Nicotine patch 14 mg topical daily provided while inpatient. 5. Code status: FULL 6. Diet: Clear advanced to regular diet. 7. DVT Prophylaxis: SC Lovenox Complications: None. Allergies: Coded Allergies: NSAIDS (Non-Steroidal Anti-Inflamma (Intermediate, GASTRIC ISSUES 07/18/15) Significant Procedures: Head MRI: FINDINGS: There is motion on the acquired images. The patient was quite claustrophobic. The gradient recalled echo sequence was not acquired. There is no acute brain ischemia. There is normal appearance of the ventricles, sulci, and extra-axial CSF spaces with minor periventricular T2 prolongation compatible with chronic microangiopathy. No extra-axial collections, mass effect, or shift of the normally midline structures. The major arterial and venous flow voids are preserved. Accounting for a fair amount of motion degradation no convincing abnormal enhancement after gadolinium administration. The craniocervical junction and supersellar region appear unremarkable. Marrow signal appears grossly preserved. The imaged paranasal sinuses are clear. The mastoid air cells appear clear although hypopneumatized. The orbits appear unremarkable. IMPRESSION: Motion degraded study without evidence of acute brain ischemia. The caliber of the ventricular system appears normal. No convincing change from 08/15/2016 across modalities. Abdominal US: IMPRESSION: Unremarkable right upper quadrant abdominal ultrasound. No cholelithiasis or secondary signs of acute cholecystitis. Barium swallow: FINDINGS Deglutition was normal. No episodes of tracheal aspiration or penetration. The vallecula and piriform sinuses were normal and symmetric in configuration. No evidence of a prominent cricopharyngeal impression, Zenker diverticulum, mucosal ulceration, mass or stricture. No hiatal hernia, and no episodes of gastroesophageal reflux occurred during this examination which included Valsalva maneuvers. With the patient in the prone, swimmer's position, esophageal dysmotility was noted with interruption of the primary peristaltic stripping wave at the level of the aortic arch followed by persistence barium within the esophagus. There was delayed, gradual emptying of contrast. IMPRESSION: 1. No evidence of hiatal hernia or gastroesophageal reflux. 2. There was esophageal dysmotility without esophageal stricture, mass or ulceration. Disposition Summary Disposition Principal Diagnosis: Esophageal dysmotility Additional Diagnosis: Inctractable headache Mental health issue Tobacco use Discharge Disposition: home or self care Discharge Instructions General Discharge Information Code Status: Full Code Patient's Diet: Clear liquid advanced to regular diet. Patient's Activity: Self-limited, as tolerated. Follow-Up Instructions/Appts: 1) increase Topiramate by 25 mg per week to reach the initial dose of 50 mg twice daily. 2) please follow up with Dr. Newell within 1-2 weeks of discharge. 3) avoide taking higher doses of Topiramate 4) please follow up with your PCP within 7 days of discharge 5) Next appointment at [facility] on 12/05/16 at 3:00 PM, if you decide you would like a sooner appointment please call [phone] to reschedule. 5) please follow up with your headache and pain specialist at [place] within 2 weeks. Please discuss the change we have made to your medication regimen. 6) Have PCP check your thyroid function test as an outpatient. Medications at Discharge Discharge Medications: Stop taking the following medications: Doxepin HCl (Doxepin HCl) 25 MG CAPSULE ORAL TAKE AT BEDTIME Qty = 30 Cyclobenzaprine HCl (Cyclobenzaprine HCl) 5 MG TABLET ORAL THREE TIMES DAILY as needed for MUSCLE RELAXER Qty = 90 Promethazine HCl (Promethazine HCl) 25 MG TABLET ORAL EVERY SIX HOURS NEEDED as needed for NAUSEA/VOMITING Qty = 12 Metoclopramide HCl (Reglan) 10 MG TABLET ORAL 4 TIMES A DAY as needed for nausea Qty = 12 Oxycodone HCl/Acetaminophen (Oxycodone-Acetaminophen 5-325) 5 MG-325 MG TABLET ORAL 4 TIMES A DAY Qty = 120 Aripiprazole (Aripiprazole) 5 MG TABLET ORAL DAILY Qty = 30 Continue taking these medications: Alprazolam (Xanax) 1 MG TABLET 1 Tablet ORAL THREE TIMES DAILY Comments: Last Taken: 10/12/16 Time: 2200PM Gabapentin (Gabapentin) 300 MG CAPSULE 1 Capsule ORAL TAKE AT BEDTIME Qty = 30 Comments: Last Taken: 10/12/16 Time: 2200PM Multivitamin (Multi-Day Vitamins) 1 EACH TABLET 1 Tablet ORAL DAILY Comments: Last Taken: 10/13/16 Time: 0900AM Pantoprazole Sodium (Protonix) 40 MG TABLET. 1 Tablet ORAL DAILY Qty = 14 Comments: PRILOSEC GIVEN 10/13/16 @0600AM Start taking the following new medications: Topiramate (Topiramate) 25 MG TABLET 1 Tablet ORAL AT BEDTIME Qty = 60 No Refills Instructions: .. Comments: Last Taken: 10/12/16 Time: 2200PM Amitriptyline HCl (Amitriptyline HCl) 25 MG TABLET 25 Milligram ORAL DAILY Qty = 30 No Refills Instructions: .. Comments: Last Taken: 10/13/16 Time: 0900AM Metoclopramide HCl (Metoclopramide HCl) 10 MG TABLET 10 Milligram ORAL EVERY SIX HOURS as needed for NAUSEA Qty = 30 No Refills Instructions: .. Comments: Last Taken: 10/13/16 Time: 1100AM Copies To: MOUNIKA LEE,MOOK Doe; SHANA WILKERSON APRN, MD,RASHID Attending MD Review Statement Documenting Attending: WILMAN LEE,IVAN
== END 2016-10-13 12:12 | DRG 392 ==
LOC: ERH 13:06 → ERHI 17:20 → ENRESERV 19:27 → ENTRNSPT 21:27 → 2NB 21:42 → CMPTRNSPT 22:09 → 2NB 10-09 10:56 → ENPENDDIS 10-13 09:39 → 2NB 10-13 12:12
PROVIDERS: Student in an Organized Health Care Education/Training Program; ADMIT Hospitalist
DX: K22.4 Dyskinesia of esophagus (principal); F31.9 Bipolar disorder, unspecified; R11.2 Nausea with vomiting, unspecified; R51 Headache; T50.905A Adverse effect of unspecified drugs, medicaments and biological substances, initial encounter; M54.5 Low back pain; F17.200 Nicotine dependence, unspecified, uncomplicated
CPT/HCPCS: 2NBSP; 70552; 70553; 74220; 81001; 82436; 93005; 93010; 96361; 96374; 96375; A9579; J0131; J0780; J1650; J2405; J2765; J3490; J7042; J7060

== ENCOUNTER 2017-10-30 13:50 | Emergency (ER) | payer OTHER ==
[~2017-10-30] VITALS: Ht 167.6 cm; Wt 90.7 kg
[~2017-10-30 13:50] MED LIST changes: +AMITRIPTYLINE H25 M2 PO; +ARIPIPRAZOLE5 M1 PO; +METOCLOPRAMIDE10 M2 PO; +TOPAMAX200 M1 PO; +TOPIRAMATE25 M2 PO
[2017-10-30 13:58] VITALS: BP 129/77
--- NOTE | 2017-10-30 14:35 | RADIOLOGY REPORT ---
EXAMINATION: XR KNEE, RIGHT XR ANKLE, LEFT XR FOOT, LEFT CLINICAL INFORMATION: Right knee pain after fall, left foot and ankle pain after fall. Presumptive diagnosis: Fracture. COMPARISON: None TECHNIQUE: AP, lateral, and both oblique views of the right knee. AP, lateral, and oblique views of the left foot and of the left ankle FINDINGS: Right knee: Bones are osteopenic. No fracture. Trace effusion. Alignment is anatomic. Joint spaces are well maintained. No abnormal soft tissue calcification. Left ankle: Soft tissues are swollen laterally. There is an acute transverse fracture of the lateral malleolus with minimal distraction of the fracture fragments (1 to 2 mm). This fracture is superimposed upon chronic changes of a old ligamentous avulsion injury in this region with small chronic Hill-Sachs fracture fragments. Small osseous fragment at the medial aspect of the talus is likely due to an old deltoid ligament injury. Ankle mortise is symmetric. No subluxation. Bones are osteopenic. Small enthesopathic spurs are present at the Achilles tendon insertion and plantar fascial origin on the calcaneus. Left foot: Bones are osteopenic. No acute fractures are identified. There is deformity of the left fifth metatarsal distally which is most consistent with an old healed fracture. Lateral malleolar fracture is again noted. No additional acute fractures are identified. IMPRESSION: 1. Acute transverse fracture of the distal tip of the lateral malleolus. 2. No acute fracture or malalignment in the right knee and left foot. 3. Trace right knee joint effusion. 4. Old healed fracture of the left fifth metatarsal.
--- NOTE | 2017-10-30 15:32 | ED GENERAL ADULT ---
History of Present Illness General Chief Complaint: Fall Stated Complaint: LEFT ANKLE SWELLING AND CUT ON R KNEE FROM FALL Source: patient Exam Limitations: no limitations Vital Signs & Intake/Output Vital Signs & Intake/Output Vital Signs Date Time Temp Pulse Resp B/P B/P Pulse O2 O2 Flow FiO2 Mean Ox Delivery Rate 10/30 1358 98.3 109 20 129/77 95 Room Air Allergies Coded Allergies: NSAIDS (Non-Steroidal Anti-Inflamma (Intermediate, GASTRIC ISSUES 07/18/15) Reconcile Medications Alprazolam (Xanax) 1 MG TABLET 1 TAB PO TID ANXIETY (Reported) Amitriptyline HCl 25 MG TABLET 25 MG PO DAILY ESOPHAGEAL DYSMOTILITY .. Gabapentin 300 MG CAPSULE 1 CAP PO QHS NERVE PAIN/SLEEP (Reported) Metoclopramide HCl 10 MG TABLET 10 MG PO Q6 PRN NAUSEA .. Multivitamin (Multi-Day Vitamins) 1 EACH TABLET 1 TAB PO DAILY SUPPLEMENT ( Reported) Pantoprazole Sodium (Protonix) 40 MG TABLET.DR 1 TAB PO DAILY gerd Topiramate 25 MG TABLET 1 TAB PO AT BEDTIME Headache .. Triage Note: TRIPPED ON SHOES FALLING ON SIDEWALK INJURING LEFT FOOT AND ANKLE AND RIGHT KNEE. NO BLOOD THINNERS, NO HEADSTRIKE. LAST TD UNKNOWN Triage Nurses Notes Reviewed? yes Onset: Abrupt Duration: minute(s): Timing: single episode today HPI: 62-year-old female with a history of anxiety and depression presenting with left ankle pain and right knee abrasions status post mechanical trip and fall. Patient reports that she tripped over a curb while walking, landed on her knees. Denies head strike. No preceding symptoms such as lightheadedness, dizziness, chest pain, shortness of breath. Denies numbness or paresthesias. Unsure of last tetanus. (Jazmin Aldridge) Past History Travel History Traveled to [place] past 21 day No Medical History Any Pertinent Medical History? 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 No (Jazmin Aldridge) Review of Systems Review of Systems Constitutional: Reports: no symptoms. EENTM: Reports: no symptoms. Respiratory: Reports: no symptoms. Cardiovascular: Reports: no symptoms. GI: Reports: no symptoms. Genitourinary: Reports: no symptoms. Musculoskeletal: Reports: see HPI. Skin: Reports: no symptoms. Neurological/Psychological: Reports: no symptoms. Hematologic/Endocrine: Reports: no symptoms. Immunologic/Allergic: Reports: no symptoms. (Jazmin Aldridge) Physical Exam Physical Exam General Appearance: well developed/nourished, no apparent distress, alert, awake , comfortable Head: atraumatic, normal appearance Eyes: Bilateral: normal appearance. Ears, Nose, Throat: normal ENT inspection Neck: normal inspection, full range of motion, no midline tenderness Respiratory: normal breath sounds, chest non-tender, lungs clear Cardiovascular: regular rate/rhythm Gastrointestinal: soft, non-tender Back: normal inspection, normal range of motion, no vertebral tenderness Extremities: on exam of the left ankle there is edema, ecchymosis, and tenderness to palpation over the lateral malleolus, decreased range of motion and motor strength, sensation intact, distal pulses 2+. Patient is unable to bear weight., unrestricted range of motion of bilateral knees Neurologic/Psych: awake, alert, oriented x 3, normal mood/affect Skin: normal color, warm/dry, abrasions to right knee Core Measures ACS in differential dx? No CVA/TIA Diagnosis: No Sepsis Present: No Sepsis Focused Exam Completed? No (Jazmin Aldridge) Progress Differential Diagnoses I considered the following diagnoses in my evaluation of the patient: [Ankle sprain versus fracture versus dislocation] Plan of Care: Orders Procedure Date/time Status Durable Medical Equipment 10/30 1531 Active X-ray IMPRESSION: 1. Acute transverse fracture of the distal tip of the lateral malleolus. 2. No acute fracture or malalignment in the right knee and left foot. 3. Trace right knee joint effusion. 4. Old healed fracture of the left fifth metatarsal. Knee abrasion cleaned Left ankle placed in a posterior short leg splint Tetanus updated Offered Rx pain medicine, but patient declining at this time, states that she already has pain medicine at home Given podiatry follow-up Canceled on supportive care and strict return precautions. Initial ED EKG: none (Jazmin Aldridge) Departure Departure Disposition: HOME OR SELF CARE Condition: Stable Clinical Impression Primary Impression: Closed left ankle fracture Referrals: Moustapha LEE,Soraida (PCP/Family) Tal BANDA,Mukund Additional Instructions: Follow-up with podiatry for reevaluation. Return to the emergency department for any new or worsening symptoms. Departure Forms: Customer Survey General Discharge Information (Jazmin Aldridge) PA/DIRECTOR TRANSLATION Co-Sign Statement Statement: ED Attending supervision documentation- [] I saw and evaluated the patient. I have also reviewed all the pertinent lab results and diagnostic results. I agree with the findings and the plan of care as documented in the PA's/DIRECTOR TRANSLATION's documentation. [X] I have reviewed the ED Record and agree with the PA's/DIRECTOR TRANSLATION's documentation. [] Additions or exceptions (if any) to the PAs/DIRECTOR TRANSLATION's note and plan are summarized below: [] (Nidia LEE,Ray Leal) Procedures Splinting Location: left ankle Manual Alignment Performed: No Hand-Made Type: orthoglass Splint: posterior short leg Splint Applied By: splint applied by me Pre-Proc Neuro Vasc Exam: normal Post-Proc Neuro Vasc Exam: normal (Jazmin Aldridge) Critical Care Note Critical Care Note Critical Care Time: non-applicable (Jazmin Aldridge)
== END 2017-10-30 15:57 ==
LOC: ERH 13:50
DX: S82.62XA Displaced fracture of lateral malleolus of left fibula, initial encounter for closed fracture (principal); W18.09XA Striking against other object with subsequent fall, initial encounter; Y93.01 Activity, walking, marching and hiking; Y92.9 Unspecified place or not applicable
CPT/HCPCS: 73562-RT; 73610-LT; 73630-LT; 90471; 90714; J3101